=== PATIENT | female | born 1955 | race Caucasian/White ===

== ENCOUNTER 2022-08-12 08:34 | Inpatient (IN) | payer OTHER ==
[2022-08-12] MEDS ORDERED: LACTATED RINGERS SOLUTION 1000 ML INFUS.BAG IV ONE (09:29)
[2022-08-12] MEDS ORDERED: methylPREDNISolone NA SUCC 125 MG/2 ML VIAL IVPB ONE (09:29)
[2022-08-12] MEDS ORDERED: methylPREDNISolone NA SUCC 125 MG/2 ML VIAL ONE (09:33)
[2022-08-12] MEDS: ALBUTEROL SO4 2.5/IPRATROPIUM 0.5 INH SOL 3 ML VIAL.NEB. NEB SCH ×3 (09:38→10:58)
[2022-08-12] MEDS ORDERED: ALPRAZolam 2 MG TABLET PO ONE (10:46)
[2022-08-12 10:48] LABS: VENOUS BASE EXCESS -17.1 mmol/L (-2-2); VENOUS O2 SATURATION 70.5 % (70-80)
[2022-08-12] MEDS ORDERED: QUEtiapine FUMARATE 200 MG TABLET PO ONE (10:48)
[2022-08-12] MEDS ORDERED: ALPRAZolam 1 MG TABLET ONE (10:50)
[2022-08-12 10:51] LABS: VENOUS PH 7.142 (7.310-7.410)
[2022-08-12] MEDS ORDERED: QUEtiapine FUMARATE 100 MG TABLET (FP) ONE (10:51)
[2022-08-12 11:01] LABS: INR 3.96 (0.83-1.09); PROTHROMBIN TIME (PATIENT) 46.2 SEC (9.7-13.0)
[2022-08-12 11:04] LABS: ACTIVATED PTT 33.7 SECONDS (25.2-36.5)
[2022-08-12 11:12] LABS: CHLORIDE 105 mmol/L (98-107); SODIUM 142 mmol/L (136-145)
[2022-08-12 11:15] LABS: ANION GAP 25 MMOL/L (8-16); CALCIUM 9.2 mg/dL (8.5-10.1); CO2 12 mmol/L (21-32); MAGNESIUM 2.2 mg/dL (1.8-2.4)
[2022-08-12 11:16] LABS: ALBUMIN 2.9 g/dl (3.4-5.0)
[2022-08-12 11:18] LABS: CREATININE 2.7 mg/dL (0.55-1.3); SGPT/ALT 967 U/L (13-61)
[2022-08-12 11:19] LABS: PHOSPHOROUS 6.2 mg/dL (2.5-4.9)
[2022-08-12 11:20] LABS: BILIRUBIN,TOTAL 2.6 mg/dL (0.2-1); TOT PROT 6.3 g/dl (6.4-8.2)
[2022-08-12 11:21] LABS: ALK PHOS 109 U/L (45-117)
[2022-08-12 11:23] LABS: N-TERMINAL BNP 1401.9 pg/ml (5-125)
[2022-08-12] MEDS ORDERED: VANCOMYCIN 1 GM in D5W (PRE-DOCKED) 1,000 MG/250 ML IVPB ONE (11:24)
[2022-08-12] MEDS ORDERED: PIPERACILLIN/TAZOB 3.375 GM 3.375 GM in DEXTROSE 5%-WATER - 50 ML IVPB ONE (11:25)
[2022-08-12 11:30] LABS: HEMATOCRIT 36.6 % (32.4-45.2); HEMOGLOBIN 10.8 GM/dL (10.7-15.3); MCH 27.1 pg (25.7-33.7); MCHC 29.4 g/dl (32.0-36.0); MEAN PLT VOLUME 11.4 fl (7.5-11.1); PLATELET COUNT 123 10^3/uL (134-434); RBC 3.98 M/mm3 (3.60-5.2); RDW 20.4 % (11.6-15.6); WHITE BLOOD COUNT 17.2 K/mm3 (4.0-10.0)
[2022-08-12 11:36] LABS: GLUCOSE,RANDOM 43 mg/dL (74-106); SGOT/AST 2800 U/L (15-37)
[2022-08-12 11:43] LABS: LACTIC ACID 14.6 mmol/L (0.4-2.0)
[2022-08-12] MEDS ORDERED: DEXTROSE 50%-WATER - 25 GM/50 ML VIAL IVPUSH ONE (11:45)
[2022-08-12] MEDS ORDERED: DEXTROSE 50%-WATER 25 GM/50 ML DISP.SYRIN ONE ×2 (11:51→11:55)
[2022-08-12] MEDS ORDERED: GLUCAGON 1 MG KIT ONE (11:56)
[2022-08-12] MEDS ORDERED: RAPID SEQUENCE INTUBATION KIT NR ONE (12:05)
[2022-08-12] MEDS ORDERED: PHENYLEPHRINE HCL 10 MG/1 ML SINGLE DOSE VIAL ONE (12:08)
[2022-08-12] MEDS ORDERED: ETOMIDATE 40 MG/20 ML VIAL IVPUSH ONE (12:19)
[2022-08-12] MEDS ORDERED: ROCURONIUM BROMIDE 50 MG/5 ML VIAL IVPUSH ONE (12:19)
[2022-08-12] MEDS ORDERED: PHENYLEPHRINE HCL 10 MG/1 ML SINGLE DOSE VIAL IVPB ONE ×2 (12:21→12:23)
[2022-08-12 12:57] LABS: ANISOCYTOSIS 0; MACROCYTOSIS 0; OVALOCYTE 1+
[2022-08-12] MEDS ORDERED: FENTANYL NS IVPB 500 MCG/100 ML BAG IVPB ONE (13:24)
[2022-08-12] MEDS ORDERED: NOREPINEPHRINE BITARTRATE 4,000 MCG in DEXTROSE 5%-WATER - 496 ML IV SCH (13:45)
[2022-08-12] MEDS ORDERED: HEPARIN NA (PORCINE) 5,000 UNITS/ML 1ML VIAL SQ SCH (14:00)
[2022-08-12] MEDS ORDERED: NOREPINEPHRINE BITARTRATE/D5W 8 MG/250 ML BAG IVPB ONE (14:07)
[2022-08-12] MEDS ORDERED: VANCOMYCIN/WATER FOR INJ (PEG) 1,000 MG/200 ML BAG IVPB ONE (14:18)
[2022-08-12] MEDS ORDERED: PIPERACILLIN/TAZOB 3.375 GM 3.375 GM/50 ML BAG IVPB ONE (14:18)
[2022-08-12] MEDS ORDERED: HEPARIN NA (PORCINE) 5,000 UNITS/ML 1ML VIAL ONE (14:18)
[2022-08-12] MEDS: NOREPINEPHRINE BITARTRATE/D5W 8 MG/250 ML BAG IVPB SCH (14:53)
[2022-08-12] MEDS: FENTANYL NS IVPB 500 MCG/100 ML BAG IVPB SCH (14:53)
[2022-08-12 16:23] LABS: ARTERIAL BLD GAS O2 SATURATION 99.7 % (95-98); ARTERIAL BLOOD GAS BASE EXCESS -18.1 mmol/L (-2-2); ARTERIAL BLOOD GAS PO2 497.7 mmHg (80-100)
[2022-08-12 16:25] LABS: ARTERIAL BLOOD GAS pH 6.975 (7.350-7.450)
[2022-08-12 16:26] LABS: VENT MODE A/C; VENT RATE 12
[2022-08-12] MEDS ORDERED: DEXTROSE 5%-LACTATED RINGERS 1,000 ML IV SCH (16:30)
[2022-08-12 17:37] LABS: BLOOD UREA NITROGEN 29.8 mg/dL (7-18)
[2022-08-12 17:40] LABS: CREATININE 2.5 mg/dL (0.55-1.3)
[2022-08-12 17:55] LABS: CALCIUM 7.8 mg/dL (8.5-10.1); LACTIC ACID 9.9 mmol/L (0.4-2.0)
[2022-08-12] MEDS ORDERED: PIPERACILLIN/TAZOB 2.25 GM 2.25 GM in DEXTROSE 5%-WATER - 50 ML IVPB SCH (18:00)
[2022-08-12] MEDS: MIDAZOLAM IN 0.9 % SOD.CHLORID 100 MG/100 ML PLAST..BAG IVPB SCH ×2 (18:06→22:09)
[2022-08-12] MEDS ORDERED: HYDROCORTISONE 20 MG TABLET PO SCH (18:15)
[2022-08-12] MEDS: SODIUM BICARBONATE 8.4% 50 MEQ/50 ML DISP.SYRIN IVPUSH SCH ×2 (18:30→20:01)
[2022-08-12] MEDS: FLUDROCORTISONE ACETATE 0.1 MG TABLET (FP) NGT SCH (18:30)
[2022-08-12] MEDS: VASOPRESSIN 40 UNITS/100 ML BAG IV SCH (18:38)
[2022-08-12] MEDS ORDERED: SODIUM CHLORIDE 0.9% 500 ML INFUS.BAG IV ONE (20:55)
[2022-08-12] MEDS ORDERED: PHYTONADIONE 10 MG/1 ML AMP IVPB ONE (20:58)
[2022-08-12 21:13] LABS: ARTERIAL BLD GAS O2 SATURATION 97.7 % (95-98); ARTERIAL BLOOD GAS BASE EXCESS -11.3 mmol/L (-2-2)
[2022-08-12 21:25] LABS: VENT MODE A/C; VENT RATE 12
[2022-08-12] MEDS: CHLORHEXIDINE GLUCONATE 4% CLEANSER FOR DECOLONIZATION TP SCH (21:26)
[2022-08-12 21:27] LABS: ARTERIAL BLOOD GAS pH 7.106 (7.350-7.450)
[2022-08-12] MEDS: CEFEPIME 1 GM in DEXTROSE 5%-WATER 100 ML IVPB SCH (21:47)
[2022-08-12] MEDS: PANTOPRAZOLE SODIUM 40 MG VIAL IVPUSH SCH ×2 (21:47→21:50)
[2022-08-12] MEDS: MUPIROCIN 2% TOPICAL OINTMENT FOR DECOLONIZATION NS SCH (21:47)
[2022-08-12] MEDS: HYDROCORTISONE SOD SUCCINATE 100 MG/2 ML VIAL IVPUSH SCH (21:50)
[2022-08-12 22:02] LABS: BASO % 0.1 % (0-2.0); HEMATOCRIT 31.3 % (32.4-45.2); HEMOGLOBIN 9.6 GM/dL (10.7-15.3); LYMPH % 1.8 % (8-40); MCH 28.2 pg (25.7-33.7); MCHC 30.8 g/dl (32.0-36.0); MEAN CELL VOLUME 91.8 fl (80-96); MEAN PLT VOLUME 9.9 fl (7.5-11.1); MONO % 1.3 % (3.8-10.2); NEUT % 96.8 % (42.8-82.8); PLATELET COUNT 95 10^3/uL (134-434); RBC 3.41 M/mm3 (3.60-5.2); RDW 20.1 % (11.6-15.6); WHITE BLOOD COUNT 9.7 K/mm3 (4.0-10.0)
[2022-08-12 22:37] LABS: LACTIC ACID 6.8 mmol/L (0.4-2.0)
[2022-08-12 22:40] LABS: ANISOCYTOSIS 2+; MACROCYTOSIS 1+; OVALOCYTE 1+
[2022-08-12] MEDS ORDERED: DEXTROSE 5%-WATER - 1,000 ML with SODIUM BICARBONATE 8.4% - 150 MEQ IV SCH (23:00)
[2022-08-13] MEDS: FENTANYL NS IVPB 500 MCG/100 ML BAG IVPB SCH ×4 (02:00→23:42)
[2022-08-13] MEDS: HYDROCORTISONE SOD SUCCINATE 100 MG/2 ML VIAL IVPUSH SCH ×3 (04:58→21:48)
[2022-08-13] MEDS: NOREPINEPHRINE BITARTRATE/D5W 8 MG/250 ML BAG IVPB SCH (06:38)
[2022-08-13 07:09] LABS: ARTERIAL BLOOD GAS BASE EXCESS -8.5 mmol/L (-2-2); ARTERIAL BLOOD GAS PO2 106.5 mmHg (80-100); ARTERIAL BLOOD GAS pH 7.235 (7.350-7.450)
[2022-08-13 07:10] LABS: VENT MODE A/C; VENT RATE 18
[2022-08-13 07:48] LABS: HEMATOCRIT 31.3 % (32.4-45.2); HEMOGLOBIN 9.8 GM/dL (10.7-15.3); MCHC 31.4 g/dl (32.0-36.0); MEAN CELL VOLUME 88.9 fl (80-96); MEAN PLT VOLUME 10.3 fl (7.5-11.1); PLATELET COUNT 115 10^3/uL (134-434); RBC 3.52 M/mm3 (3.60-5.2); RDW 19.7 % (11.6-15.6); WHITE BLOOD COUNT 12.5 K/mm3 (4.0-10.0)
[2022-08-13 07:51] LABS: PROTHROMBIN TIME (PATIENT) 50.6 SEC (9.7-13.0)
[2022-08-13 08:03] LABS: CALCIUM 7.3 mg/dL (8.5-10.1)
[2022-08-13 08:04] LABS: BLOOD UREA NITROGEN 30.6 mg/dL (7-18); MAGNESIUM 1.9 mg/dL (1.8-2.4)
[2022-08-13 08:07] LABS: CREATININE 2.7 mg/dL (0.55-1.3); PHOSPHOROUS 6.6 mg/dL (2.5-4.9)
[2022-08-13 08:08] LABS: BILIRUBIN,TOTAL 1.9 mg/dL (0.2-1); TOT PROT 4.9 g/dl (6.4-8.2)
[2022-08-13 08:31] LABS: ALBUMIN 2.1 g/dl (3.4-5.0)
[2022-08-13 08:47] LABS: INR 4.34 (0.83-1.09)
[2022-08-13 09:20] LABS: MACROCYTOSIS 0; PLATELET ESTIMATE DECREASED
[2022-08-13] MEDS: CEFEPIME 1 GM in DEXTROSE 5%-WATER 100 ML IVPB SCH ×2 (09:31→21:50)
[2022-08-13] MEDS: PANTOPRAZOLE SODIUM 40 MG VIAL IVPUSH SCH (09:31)
[2022-08-13 09:36] LABS: LACTIC ACID 4.5 mmol/L (0.4-2.0)
[2022-08-13] MEDS ORDERED: PANTOPRAZOLE SODIUM 40 MG VIAL IVPUSH SCH (10:00)
[2022-08-13] MEDS ORDERED: VANCOMYCIN 1 GM in D5W (PRE-DOCKED) 1,000 MG/250 ML IVPB SCH (10:00)
[2022-08-13] MEDS: FLUDROCORTISONE ACETATE 0.1 MG TABLET (FP) NGT SCH (10:35)
[2022-08-13] MEDS: MUPIROCIN 2% TOPICAL OINTMENT FOR DECOLONIZATION NS SCH ×2 (10:35→21:50)
[2022-08-13] MEDS ORDERED: PHYTONADIONE 10 MG/1 ML AMP IVPB ONE (12:00)
[2022-08-13 12:38] LABS: HELMET CELLS 0; HOWELL-JOLLY BODIES 0; ROULEAU 0; SICKELED CELLS 0; TARGET CELLS 0; TOXIC GRANULATION 0
[2022-08-13 12:39] LABS: ANISOCYTOSIS 0; OVALOCYTE 0; TEAR DROP CELLS 0
[2022-08-13] MEDS: MIDAZOLAM IN 0.9 % SOD.CHLORID 100 MG/100 ML PLAST..BAG IVPB SCH (12:57)
[2022-08-13] MEDS: LACTULOSE 20 GM/30 ML UDC (FOR ORAL USE ONLY) GT SCH ×3 (13:01→21:50)
[2022-08-13] MEDS: DEXTROSE 5%-LACTATED RINGERS 1,000 ML IV SCH (13:16)
[2022-08-13] MEDS ORDERED: WATER IVPB ONE ×2 (17:00→22:00)
[2022-08-13] MEDS ORDERED: DEXTROSE 5% IVPB ONE ×2 (17:00→22:00)
[2022-08-13] MEDS ORDERED: ACETYLCYSTEINE IVPB ONE ×2 (17:00→22:00)
[2022-08-13] MEDS ORDERED: ACETYLCYSTEINE INJECTION 20% 2,900 MG in DEXTROSE 5%-WATER - 500 ML IVPB ONE (18:00)
[2022-08-13] MEDS ORDERED: MIDAZOLAM HCL 5 MG/1 ML Single Dose Vial ONE (18:13)
[2022-08-13] MEDS ORDERED: MIDAZOLAM HCL 5 MG/1 ML Single Dose Vial IVPUSH ONE ×2 (18:17→18:46)
[2022-08-13] MEDS: CHLORHEXIDINE GLUCONATE 4% CLEANSER FOR DECOLONIZATION TP SCH (21:50)
[2022-08-14] MEDS: HYDROCORTISONE SOD SUCCINATE 100 MG/2 ML VIAL IVPUSH SCH ×3 (05:53→21:45)
[2022-08-14] MEDS: FENTANYL NS IVPB 500 MCG/100 ML BAG IVPB SCH ×2 (07:14→22:19)
[2022-08-14 07:32] LABS: HEMATOCRIT 28.6 % (32.4-45.2); HEMOGLOBIN 9.5 GM/dL (10.7-15.3); MCH 28.3 pg (25.7-33.7); MCHC 33.1 g/dl (32.0-36.0); MEAN CELL VOLUME 85.6 fl (80-96); MEAN PLT VOLUME 8.6 fl (7.5-11.1); PLATELET COUNT 113 10^3/uL (134-434); RBC 3.34 M/mm3 (3.60-5.2); RDW 19.3 % (11.6-15.6)
[2022-08-14] MEDS: NOREPINEPHRINE BITARTRATE/D5W 8 MG/250 ML BAG IVPB SCH (07:34)
[2022-08-14] MEDS: VASOPRESSIN 40 UNITS/100 ML BAG IV SCH (07:34)
[2022-08-14 07:37] LABS: ACTIVATED PTT 36.1 SECONDS (25.2-36.5); INR 3.38 (0.83-1.09); PROTHROMBIN TIME (PATIENT) 39.3 SEC (9.7-13.0)
[2022-08-14 07:54] LABS: BLOOD UREA NITROGEN 41.5 mg/dL (7-18)
[2022-08-14 07:56] LABS: CREATININE 3.6 mg/dL (0.55-1.3)
[2022-08-14 07:59] LABS: BILIRUBIN,TOTAL 2.2 mg/dL (0.2-1); TOT PROT 4.7 g/dl (6.4-8.2)
[2022-08-14 09:10] LABS: CREATININE, URINE RANDOM < 13.0 mg/dL (30-150)
[2022-08-14] MEDS: LACTULOSE 20 GM/30 ML UDC (FOR ORAL USE ONLY) GT SCH ×4 (09:42→21:44)
[2022-08-14] MEDS: CEFEPIME 1 GM in DEXTROSE 5%-WATER 100 ML IVPB SCH ×2 (09:42→21:43)
[2022-08-14] MEDS: FLUDROCORTISONE ACETATE 0.1 MG TABLET (FP) NGT SCH (09:42)
[2022-08-14] MEDS: MUPIROCIN 2% TOPICAL OINTMENT FOR DECOLONIZATION NS SCH ×2 (09:42→21:44)
[2022-08-14] MEDS: PANTOPRAZOLE SODIUM 40 MG VIAL IVPUSH SCH ×2 (09:43→21:43)
[2022-08-14 09:45] LABS: EPI CELLS 0 /uL (0-25.1); HYALINE CASTS 0 /uL (0-3.1); URINE APPEARANCE CLOUDY; URINE BACTERIA 44 /uL (0-1359); URINE BILIRUBIN NEGATIVE (NEGATIVE); URINE COLOR YELLOW; URINE GLUCOSE (UA) 1+ (NEGATIVE); URINE KETONE NEGATIVE (NEGATIVE); URINE LEUK ESTERASE TRACE (NEGATIVE); URINE NITRITE NEGATIVE (NEGATIVE); URINE PROTEIN 4+ (NEGATIVE); URINE UROBILINOGEN 0.2 mg/dL (0.2-1.0); URINE WBC 1112 /uL (0-25.8)
[2022-08-14 09:46] LABS: METHADONE, UR NEGATIVE (NEGATIVE); PHENCYCLIDINE,URINE NEGATIVE (NEGATIVE)
[2022-08-14 09:48] LABS: OPIATES, URI NEGATIVE (NEGATIVE)
[2022-08-14 09:51] LABS: COCAINE, UR NEGATIVE (NEGATIVE); URINE AMPHETAMINES NEGATIVE (NEGATIVE); URINE BARBITURATES NEGATIVE (NEGATIVE); URINE BENZODIAZEPINES POSITIVE (NEGATIVE)
[2022-08-14 09:55] LABS: URINE RBC 717 /uL (0-23.9)
[2022-08-14 09:56] LABS: YEAST NEGATIVE (NEGATIVE)
[2022-08-14] MEDS ORDERED: PANTOPRAZOLE SODIUM 40 MG VIAL IVPUSH SCH (10:00)
[2022-08-14] MEDS ORDERED: RIFAXIMIN 550 MG TABLET PO SCH (10:00)
[2022-08-14] MEDS: MIDAZOLAM IN 0.9 % SOD.CHLORID 100 MG/100 ML PLAST..BAG IVPB SCH (17:12)
[2022-08-14] MEDS: CHLORHEXIDINE GLUCONATE 4% CLEANSER FOR DECOLONIZATION TP SCH (21:44)
[2022-08-14] MEDS: RIFAXIMIN 550 MG TABLET GT SCH (21:47)
[2022-08-15] MEDS: DEXTROSE 5%-LACTATED RINGERS 1,000 ML IV SCH ×3 (02:00→21:36)
[2022-08-15] MEDS: HYDROCORTISONE SOD SUCCINATE 100 MG/2 ML VIAL IVPUSH SCH ×3 (05:24→20:48)
[2022-08-15] MEDS: FENTANYL NS IVPB 500 MCG/100 ML BAG IVPB SCH ×3 (05:30→21:20)
[2022-08-15] MEDS: MIDAZOLAM IN 0.9 % SOD.CHLORID 100 MG/100 ML PLAST..BAG IVPB SCH ×2 (05:45→21:37)
[2022-08-15 07:46] LABS: HEMATOCRIT 27.4 % (32.4-45.2); HEMOGLOBIN 9.2 GM/dL (10.7-15.3); MCH 28.3 pg (25.7-33.7); MCHC 33.4 g/dl (32.0-36.0); MEAN CELL VOLUME 84.6 fl (80-96); MEAN PLT VOLUME 9.3 fl (7.5-11.1); PLATELET COUNT 90 10^3/uL (134-434); RBC 3.24 M/mm3 (3.60-5.2); RDW 19.8 % (11.6-15.6); WHITE BLOOD COUNT 4.9 K/mm3 (4.0-10.0)
[2022-08-15 08:00] LABS: INR 2.44 (0.83-1.09); PROTHROMBIN TIME (PATIENT) 28.3 SEC (9.7-13.0)
[2022-08-15 08:17] LABS: ALBUMIN 2.2 g/dl (3.4-5.0); BLOOD UREA NITROGEN 57.6 mg/dL (7-18); CALCIUM 7.5 mg/dL (8.5-10.1)
[2022-08-15 08:19] LABS: BILIRUBIN,DIRECT 2.1 mg/dL (0.0-0.2); CREATININE 4.3 mg/dL (0.55-1.3)
[2022-08-15 08:21] LABS: BILIRUBIN,TOTAL 2.6 mg/dL (0.2-1)
[2022-08-15 09:15] LABS: ANISOCYTOSIS 3+; MACROCYTOSIS 0; OVALOCYTE 2+; PLATELET ESTIMATE DECREASED
[2022-08-15] MEDS: LACTULOSE 20 GM/30 ML UDC (FOR ORAL USE ONLY) GT SCH ×4 (09:37→21:21)
[2022-08-15] MEDS: CEFEPIME 1 GM in DEXTROSE 5%-WATER 100 ML IVPB SCH ×2 (09:37→21:21)
[2022-08-15] MEDS: PANTOPRAZOLE SODIUM 40 MG VIAL IVPUSH SCH ×2 (09:37→21:21)
[2022-08-15] MEDS: MUPIROCIN 2% TOPICAL OINTMENT FOR DECOLONIZATION NS SCH ×2 (09:40→21:21)
[2022-08-15] MEDS: FLUDROCORTISONE ACETATE 0.1 MG TABLET (FP) NGT SCH (09:40)
[2022-08-15] MEDS: RIFAXIMIN 550 MG TABLET GT SCH ×2 (09:41→21:21)
[2022-08-15] MEDS ORDERED: TAMSULOSIN HCL 0.4 MG CAP PO ONE (13:07)
[2022-08-15] MEDS: CHLORHEXIDINE GLUCONATE 4% CLEANSER FOR DECOLONIZATION TP SCH (21:21)
[2022-08-16] MEDS: HYDROCORTISONE SOD SUCCINATE 100 MG/2 ML VIAL IVPUSH SCH ×3 (02:53→21:02)
[2022-08-16] MEDS: FENTANYL NS IVPB 500 MCG/100 ML BAG IVPB SCH ×4 (02:53→21:03)
[2022-08-16 07:51] LABS: INR 2.05 (0.83-1.09); PROTHROMBIN TIME (PATIENT) 23.7 SEC (9.7-13.0)
[2022-08-16 07:53] LABS: ACTIVATED PTT 38.1 SECONDS (25.2-36.5)
[2022-08-16 07:59] LABS: HEMATOCRIT 26.8 % (32.4-45.2); HEMOGLOBIN 8.8 GM/dL (10.7-15.3); MCH 27.6 pg (25.7-33.7); MCHC 32.7 g/dl (32.0-36.0); MEAN CELL VOLUME 84.4 fl (80-96); PLATELET COUNT 79 10^3/uL (134-434); RBC 3.17 M/mm3 (3.60-5.2); RDW 19.5 % (11.6-15.6); WHITE BLOOD COUNT 2.7 K/mm3 (4.0-10.0)
[2022-08-16 08:28] LABS: ALBUMIN 1.8 g/dl (3.4-5.0); BLOOD UREA NITROGEN 64.5 mg/dL (7-18); CALCIUM 7.2 mg/dL (8.5-10.1); MAGNESIUM 2.1 mg/dL (1.8-2.4)
[2022-08-16 08:31] LABS: BILIRUBIN,DIRECT 2.1 mg/dL (0.0-0.2); CREATININE 4.4 mg/dL (0.55-1.3)
[2022-08-16 08:33] LABS: BILIRUBIN,TOTAL 2.8 mg/dL (0.2-1); TOT PROT 4.6 g/dl (6.4-8.2)
[2022-08-16 09:12] LABS: ANISOCYTOSIS 2+; MACROCYTOSIS 1+; OVALOCYTE 1+
[2022-08-16] MEDS: FLUDROCORTISONE ACETATE 0.1 MG TABLET (FP) NGT SCH (09:46)
[2022-08-16] MEDS: RIFAXIMIN 550 MG TABLET GT SCH ×2 (09:46→22:04)
[2022-08-16] MEDS: CEFEPIME 1 GM in DEXTROSE 5%-WATER 100 ML IVPB SCH (09:46)
[2022-08-16] MEDS: LACTULOSE 20 GM/30 ML UDC (FOR ORAL USE ONLY) GT SCH ×4 (09:46→22:03)
[2022-08-16] MEDS: PANTOPRAZOLE SODIUM 40 MG VIAL IVPUSH SCH ×2 (09:46→22:04)
[2022-08-16] MEDS: MUPIROCIN 2% TOPICAL OINTMENT FOR DECOLONIZATION NS SCH ×2 (09:48→22:04)
[2022-08-16] MEDS: DEXTROSE 5%-LACTATED RINGERS 1,000 ML IV SCH ×2 (14:41→21:13)
[2022-08-16] MEDS: MIDAZOLAM IN 0.9 % SOD.CHLORID 100 MG/100 ML PLAST..BAG IVPB SCH (14:42)
[2022-08-16] MEDS: CHLORHEXIDINE GLUCONATE 4% CLEANSER FOR DECOLONIZATION TP SCH (22:04)
[2022-08-17] MEDS: FENTANYL NS IVPB 500 MCG/100 ML BAG IVPB SCH ×4 (02:19→19:13)
[2022-08-17] MEDS: HYDROCORTISONE SOD SUCCINATE 100 MG/2 ML VIAL IVPUSH SCH ×3 (04:42→20:43)
[2022-08-17] MEDS: DEXTROSE 5%-LACTATED RINGERS 1,000 ML IV SCH ×2 (06:20→21:32)
[2022-08-17 07:16] LABS: HEMATOCRIT 27.7 % (32.4-45.2); MCH 27.7 pg (25.7-33.7); MCHC 32.6 g/dl (32.0-36.0); MEAN CELL VOLUME 84.8 fl (80-96); MEAN PLT VOLUME 8.5 fl (7.5-11.1); PLATELET COUNT 64 10^3/uL (134-434); RBC 3.27 M/mm3 (3.60-5.2); RDW 19.7 % (11.6-15.6); WHITE BLOOD COUNT 4.4 K/mm3 (4.0-10.0)
[2022-08-17 07:41] LABS: CALCIUM 7.1 mg/dL (8.5-10.1)
[2022-08-17 07:42] LABS: BLOOD UREA NITROGEN 70.6 mg/dL (7-18); MAGNESIUM 2.1 mg/dL (1.8-2.4)
[2022-08-17 07:45] LABS: CREATININE 4.6 mg/dL (0.55-1.3); PHOSPHOROUS 5.9 mg/dL (2.5-4.9)
[2022-08-17] MEDS: MIDAZOLAM IN 0.9 % SOD.CHLORID 100 MG/100 ML PLAST..BAG IVPB SCH ×3 (10:04→16:01)
[2022-08-17] MEDS: MUPIROCIN 2% TOPICAL OINTMENT FOR DECOLONIZATION NS SCH (10:07)
[2022-08-17] MEDS: RIFAXIMIN 550 MG TABLET GT SCH ×2 (10:08→21:32)
[2022-08-17] MEDS: CEFEPIME 1 GM in DEXTROSE 5%-WATER 100 ML IVPB SCH (10:08)
[2022-08-17] MEDS: FLUDROCORTISONE ACETATE 0.1 MG TABLET (FP) NGT SCH (10:09)
[2022-08-17] MEDS: PANTOPRAZOLE SODIUM 40 MG VIAL IVPUSH SCH ×2 (10:09→21:32)
[2022-08-17] MEDS: LACTULOSE 20 GM/30 ML UDC (FOR ORAL USE ONLY) GT SCH ×4 (10:10→21:32)
[2022-08-17] MEDS ORDERED: fentaNYL CITRATE 250 MCG/5 ML VIAL ONE (12:32)
[2022-08-17] MEDS: FUROSEMIDE INJECTION 100 MG in SODIUM CHLORIDE 90 ML IVPB SCH (15:30)
[2022-08-17] MEDS: CHLORHEXIDINE GLUCONATE 4% CLEANSER FOR DECOLONIZATION TP SCH (21:32)
[2022-08-18] MEDS: HYDROCORTISONE SOD SUCCINATE 100 MG/2 ML VIAL IVPUSH SCH ×3 (03:59→21:34)
[2022-08-18 07:29] LABS: HEMATOCRIT 26.9 % (32.4-45.2); HEMOGLOBIN 8.7 GM/dL (10.7-15.3); MCHC 32.5 g/dl (32.0-36.0); MEAN CELL VOLUME 85.9 fl (80-96); MEAN PLT VOLUME 9.3 fl (7.5-11.1); PLATELET COUNT 48 10^3/uL (134-434); RBC 3.13 M/mm3 (3.60-5.2); RDW 20.4 % (11.6-15.6); WHITE BLOOD COUNT 4.9 K/mm3 (4.0-10.0)
[2022-08-18 08:04] LABS: CALCIUM 7.6 mg/dL (8.5-10.1)
[2022-08-18 08:05] LABS: BLOOD UREA NITROGEN 82.2 mg/dL (7-18); MAGNESIUM 2.2 mg/dL (1.8-2.4)
[2022-08-18 08:08] LABS: CREATININE 5.1 mg/dL (0.55-1.3); PHOSPHOROUS 7.2 mg/dL (2.5-4.9)
[2022-08-18] MEDS: CEFEPIME 1 GM in DEXTROSE 5%-WATER 100 ML IVPB SCH (09:59)
[2022-08-18] MEDS: RIFAXIMIN 550 MG TABLET GT SCH ×2 (10:00→21:38)
[2022-08-18] MEDS: LACTULOSE 20 GM/30 ML UDC (FOR ORAL USE ONLY) GT SCH ×4 (10:00→21:34)
[2022-08-18] MEDS: PANTOPRAZOLE SODIUM 40 MG VIAL IVPUSH SCH ×2 (10:00→21:36)
[2022-08-18] MEDS: FLUDROCORTISONE ACETATE 0.1 MG TABLET (FP) NGT SCH (10:00)
[2022-08-18] MEDS ORDERED: BISACODYL 10 MG SUPP.RECT PR ONE ×3 (10:47→18:45)
[2022-08-18] MEDS: FUROSEMIDE INJECTION 100 MG in SODIUM CHLORIDE 90 ML IVPB SCH (14:55)
[2022-08-18] MEDS ORDERED: MINERAL OIL ENEMA 133 ML ENEMA RC ONE (15:00)
[2022-08-18] MEDS: DEXMEDETOMIDINE PREMIX 400 MCG/100 ML BAG IVPB SCH (16:24)
[2022-08-18] MEDS: PROPOFOL 1,000,000 MCG/100 ML VIAL IVPB SCH (16:25)
[2022-08-18] MEDS ORDERED: SODIUM CHLORIDE 0.9% 500 ML INFUS.BAG IV ONE (18:21)
[2022-08-18] MEDS: MIDAZOLAM IN 0.9 % SOD.CHLORID 100 MG/100 ML PLAST..BAG IVPB SCH (19:00)
[2022-08-18] MEDS: CHLORHEXIDINE GLUCONATE 4% CLEANSER FOR DECOLONIZATION TP SCH (21:38)
[2022-08-18] MEDS: SENNOSIDES/DOCUSATE COMBO (SENNA PLUS) TABLET (UD) PO SCH (21:38)
[2022-08-19] MEDS: HYDROCORTISONE SOD SUCCINATE 100 MG/2 ML VIAL IVPUSH SCH (05:55)
[2022-08-19 07:33] LABS: CALCIUM 7.4 mg/dL (8.5-10.1)
[2022-08-19 07:34] LABS: BLOOD UREA NITROGEN 94.6 mg/dL (7-18); MAGNESIUM 2.2 mg/dL (1.8-2.4)
[2022-08-19 07:37] LABS: CREATININE 5.3 mg/dL (0.55-1.3); HEMATOCRIT 29.1 % (32.4-45.2); HEMOGLOBIN 9.7 GM/dL (10.7-15.3); MCH 28.2 pg (25.7-33.7); MCHC 33.4 g/dl (32.0-36.0); MEAN CELL VOLUME 84.6 fl (80-96); MEAN PLT VOLUME 9.1 fl (7.5-11.1); PHOSPHOROUS 7.1 mg/dL (2.5-4.9); PLATELET COUNT 46 10^3/uL (134-434); RBC 3.44 M/mm3 (3.60-5.2); RDW 19.6 % (11.6-15.6); WHITE BLOOD COUNT 8.3 K/mm3 (4.0-10.0)
[2022-08-19 07:38] LABS: BILIRUBIN,TOTAL 3.7 mg/dL (0.2-1)
[2022-08-19 07:39] LABS: TOT PROT 5.5 g/dl (6.4-8.2)
[2022-08-19 07:42] LABS: ALBUMIN 2.2 g/dl (3.4-5.0)
[2022-08-19] MEDS: LACTULOSE 20 GM/30 ML UDC (FOR ORAL USE ONLY) GT SCH ×4 (10:09→21:06)
[2022-08-19] MEDS: PANTOPRAZOLE SODIUM 40 MG VIAL IVPUSH SCH ×2 (10:09→21:08)
[2022-08-19] MEDS: CEFEPIME 1 GM in DEXTROSE 5%-WATER 100 ML IVPB SCH (10:09)
[2022-08-19] MEDS: RIFAXIMIN 550 MG TABLET GT SCH ×2 (10:09→21:08)
[2022-08-19] MEDS ORDERED: HYDROCORTISONE 5 MG TABLET PO SCH (13:00)
[2022-08-19 13:20] LABS: ARTERIAL BLD GAS O2 SATURATION 98.9 % (95-98); ARTERIAL BLOOD GAS BASE EXCESS -5.3 mmol/L (-2-2); ARTERIAL BLOOD GAS PO2 148.4 mmHg (80-100); ARTERIAL BLOOD GAS pH 7.361 (7.350-7.450)
[2022-08-19 13:22] LABS: ALLENS TEST POSITIVE
[2022-08-19 13:23] LABS: VENT MODE PSU
[2022-08-19] MEDS: HYDROCORTISONE 20 MG, HYDROCORTISONE 5 MG PO SCH ×2 (15:40→21:17)
[2022-08-19 15:54] VITALS: BMI 28.5
[2022-08-19] MEDS: HEPARIN NA (PORCINE) 5,000 UNITS/ML 1ML VIAL SQ SCH (21:06)
[2022-08-19] MEDS: PROPOFOL 1,000,000 MCG/100 ML VIAL IVPB SCH ×2 (21:07→23:25)
[2022-08-19] MEDS: DEXMEDETOMIDINE PREMIX 400 MCG/100 ML BAG IVPB SCH (21:07)
[2022-08-19] MEDS: CHLORHEXIDINE GLUCONATE 4% CLEANSER FOR DECOLONIZATION TP SCH (21:07)
[2022-08-19] MEDS: SENNOSIDES/DOCUSATE COMBO (SENNA PLUS) TABLET (UD) PO SCH (21:08)
[2022-08-20 07:19] LABS: HEMATOCRIT 35.1 % (32.4-45.2); HEMOGLOBIN 11.6 GM/dL (10.7-15.3); MCH 28.8 pg (25.7-33.7); MCHC 33.1 g/dl (32.0-36.0); MEAN CELL VOLUME 87.1 fl (80-96); MEAN PLT VOLUME 8.4 fl (7.5-11.1); RBC 4.03 M/mm3 (3.60-5.2); RDW 19.9 % (11.6-15.6); WHITE BLOOD COUNT 8.1 K/mm3 (4.0-10.0)
[2022-08-20 07:22] LABS: PLATELET COUNT 36 10^3/uL (134-434)
[2022-08-20 08:26] LABS: CHLORIDE 107 mmol/L (98-107); SODIUM 140 mmol/L (136-145)
[2022-08-20 08:28] LABS: CALCIUM 7.4 mg/dL (8.5-10.1)
[2022-08-20 08:29] LABS: ALBUMIN 2.2 g/dl (3.4-5.0); ANION GAP 15 MMOL/L (8-16); CO2 19 mmol/L (21-32); GLUCOSE,RANDOM 123 mg/dL (74-106); MAGNESIUM 2.4 mg/dL (1.8-2.4)
[2022-08-20 08:32] LABS: CREATININE 5.4 mg/dL (0.55-1.3); PHOSPHOROUS 7.4 mg/dL (2.5-4.9); SGOT/AST 34 U/L (15-37); SGPT/ALT 257 U/L (13-61)
[2022-08-20 08:33] LABS: TOT PROT 5.3 g/dl (6.4-8.2)
[2022-08-20 08:34] LABS: ALK PHOS 238 U/L (45-117); BILIRUBIN,TOTAL 3.4 mg/dL (0.2-1); BLOOD UREA NITROGEN 106.7 mg/dL (7-18)
[2022-08-20] MEDS: PANTOPRAZOLE SODIUM 40 MG VIAL IVPUSH SCH ×2 (09:42→22:26)
[2022-08-20] MEDS: CEFEPIME 1 GM in DEXTROSE 5%-WATER 100 ML IVPB SCH (09:42)
[2022-08-20] MEDS: HEPARIN NA (PORCINE) 5,000 UNITS/ML 1ML VIAL SQ SCH (09:42)
[2022-08-20] MEDS: RIFAXIMIN 550 MG TABLET GT SCH ×2 (09:42→22:26)
[2022-08-20] MEDS: HYDROCORTISONE 20 MG, HYDROCORTISONE 5 MG PO SCH ×2 (09:43→22:29)
[2022-08-20] MEDS: LACTULOSE 20 GM/30 ML UDC (FOR ORAL USE ONLY) GT SCH ×3 (09:45→22:26)
[2022-08-20 12:22] LABS: INR 1.34 (0.83-1.09); PROTHROMBIN TIME (PATIENT) 15.5 SEC (9.7-13.0)
[2022-08-20] MEDS ORDERED: BISACODYL 5 MG TABLET.DR (FP) PO PRN (14:44)
[2022-08-20] MEDS: PROPOFOL 1,000,000 MCG/100 ML VIAL IVPB SCH (16:54)
[2022-08-20 21:20] LABS: INR 1.28 (0.83-1.09); PROTHROMBIN TIME (PATIENT) 14.7 SEC (9.7-13.0)
[2022-08-20] MEDS: SENNOSIDES/DOCUSATE COMBO (SENNA PLUS) TABLET (UD) PO SCH (22:26)
[2022-08-20] MEDS: CHLORHEXIDINE GLUCONATE 4% CLEANSER FOR DECOLONIZATION TP SCH (22:27)
[2022-08-21] MEDS: PROPOFOL 1,000,000 MCG/100 ML VIAL IVPB SCH ×3 (05:18→17:31)
[2022-08-21 05:31] LABS: MCH 28.2 pg (25.7-33.7); WHITE BLOOD COUNT 6.9 K/mm3 (4.0-10.0)
[2022-08-21 05:37] LABS: HEMATOCRIT 20.4 % (32.4-45.2); MCHC 32.2 g/dl (32.0-36.0); MEAN CELL VOLUME 87.5 fl (80-96); MEAN PLT VOLUME 10.3 fl (7.5-11.1); RBC 2.33 M/mm3 (3.60-5.2); RDW 21.1 % (11.6-15.6)
[2022-08-21 05:51] LABS: HEMOGLOBIN 6.5 GM/dL (10.7-15.3)
[2022-08-21 07:03] LABS: PLATELET COUNT 49.5 10^3/uL (134-434)
[2022-08-21 07:58] LABS: CHLORIDE 106 mmol/L (98-107); SODIUM 141 mmol/L (136-145)
[2022-08-21 08:00] LABS: CALCIUM 7.9 mg/dL (8.5-10.1)
[2022-08-21 08:01] LABS: ALBUMIN 2.2 g/dl (3.4-5.0); ANION GAP 13 MMOL/L (8-16); CO2 22 mmol/L (21-32); GLUCOSE,RANDOM 129 mg/dL (74-106)
[2022-08-21 08:03] LABS: CREATININE 5.3 mg/dL (0.55-1.3); SGOT/AST 41 U/L (15-37); SGPT/ALT 180 U/L (13-61)
[2022-08-21 08:05] LABS: TOT PROT 5.4 g/dl (6.4-8.2)
[2022-08-21 08:15] LABS: ALK PHOS 307 U/L (45-117)
[2022-08-21] MEDS: FENTANYL NS IVPB 500 MCG/100 ML BAG IVPB SCH ×2 (08:38→18:45)
[2022-08-21] MEDS: RIFAXIMIN 550 MG TABLET GT SCH ×2 (09:54→22:07)
[2022-08-21] MEDS: LACTULOSE 20 GM/30 ML UDC (FOR ORAL USE ONLY) GT SCH ×4 (09:54→22:06)
[2022-08-21] MEDS: PANTOPRAZOLE SODIUM 40 MG VIAL IVPUSH SCH ×2 (09:54→22:06)
[2022-08-21 12:12] LABS: EPI CELLS 10 /uL (0-25.1); HYALINE CASTS 1 /uL (0-3.1); PH,URINE 5.5 (5.0-8.0); URINE APPEARANCE CLEAR; URINE BACTERIA 136 /uL (0-1359); URINE BILIRUBIN NEGATIVE (NEGATIVE); URINE COLOR YELLOW; URINE GLUCOSE (UA) NEGATIVE (NEGATIVE); URINE KETONE NEGATIVE (NEGATIVE); URINE LEUK ESTERASE TRACE (NEGATIVE); URINE NITRITE NEGATIVE (NEGATIVE); URINE PROTEIN 1+ (NEGATIVE); URINE WBC 25 /uL (0-25.8)
[2022-08-21] MEDS: methylPREDNISolone NA SUCC 40 MG/1 ML VIAL IVPUSH SCH ×2 (13:00→17:21)
[2022-08-21 13:15] LABS: BASO % 0.2 % (0-2.0); EOS % 0.6 % (0-4.5); HEMATOCRIT 22.5 % (32.4-45.2); HEMOGLOBIN 7.4 GM/dL (10.7-15.3); LYMPH % 2.1 % (8-40); MCH 28.4 pg (25.7-33.7); MEAN CELL VOLUME 86.1 fl (80-96); MEAN PLT VOLUME 9.9 fl (7.5-11.1); MONO % 6.3 % (3.8-10.2); NEUT % 90.8 % (42.8-82.8); RBC 2.62 M/mm3 (3.60-5.2); RDW 19.8 % (11.6-15.6); WHITE BLOOD COUNT 6.8 K/mm3 (4.0-10.0)
[2022-08-21 13:26] LABS: URINE RBC 78 /uL (0-23.9)
[2022-08-21 13:27] LABS: ACTIVATED PTT 29.4 SECONDS (25.2-36.5); INR 1.29 (0.83-1.09); PROTHROMBIN TIME (PATIENT) 14.9 SEC (9.7-13.0)
[2022-08-21 13:30] LABS: YEAST NEGATIVE (NEGATIVE)
[2022-08-21 13:56] LABS: CHLORIDE 107 mmol/L (98-107); SODIUM 143 mmol/L (136-145)
[2022-08-21 13:57] LABS: CALCIUM 7.7 mg/dL (8.5-10.1)
[2022-08-21 13:59] LABS: ANION GAP 13 MMOL/L (8-16); CO2 23 mmol/L (21-32); GLUCOSE,RANDOM 130 mg/dL (74-106); MAGNESIUM 2.4 mg/dL (1.8-2.4)
[2022-08-21 14:02] LABS: CREATININE 5.3 mg/dL (0.55-1.3); PHOSPHOROUS 6.6 mg/dL (2.5-4.9); SGOT/AST 33 U/L (15-37); SGPT/ALT 156 U/L (13-61)
[2022-08-21 14:03] LABS: BILIRUBIN,TOTAL 2.6 mg/dL (0.2-1); TOT PROT 4.8 g/dl (6.4-8.2)
[2022-08-21 14:08] LABS: ALK PHOS 272 U/L (45-117); BLOOD UREA NITROGEN 121.3 mg/dL (7-18)
[2022-08-21 14:11] LABS: PLATELET ESTIMATE DECREASED
[2022-08-21 14:12] LABS: PLATELET COUNT 31 10^3/uL (134-434)
[2022-08-21] MEDS: SENNOSIDES/DOCUSATE COMBO (SENNA PLUS) TABLET (UD) PO SCH (22:06)
[2022-08-21] MEDS: CHLORHEXIDINE GLUCONATE 4% CLEANSER FOR DECOLONIZATION TP SCH (22:06)
[2022-08-22] MEDS: methylPREDNISolone NA SUCC 40 MG/1 ML VIAL IVPUSH SCH (02:23)
[2022-08-22 06:01] LABS: HEMATOCRIT 22.4 % (32.4-45.2); HEMOGLOBIN 7.3 GM/dL (10.7-15.3); MCH 28.1 pg (25.7-33.7); MCHC 32.7 g/dl (32.0-36.0); MEAN CELL VOLUME 85.9 fl (80-96); MEAN PLT VOLUME 12.9 fl (7.5-11.1); RBC 2.61 M/mm3 (3.60-5.2); RDW 20.6 % (11.6-15.6); WHITE BLOOD COUNT 4.7 K/mm3 (4.0-10.0)
[2022-08-22 07:37] LABS: PLATELET COUNT 32 10^3/uL (134-434)
[2022-08-22 08:42] LABS: INR 1.28 (0.83-1.09); PROTHROMBIN TIME (PATIENT) 14.7 SEC (9.7-13.0)
[2022-08-22 08:45] LABS: ACTIVATED PTT 29.4 SECONDS (25.2-36.5)
[2022-08-22 08:57] LABS: HEMATOCRIT 24.2 % (32.4-45.2); HEMOGLOBIN 7.9 GM/dL (10.7-15.3); MCH 28.5 pg (25.7-33.7); MCHC 32.8 g/dl (32.0-36.0); MEAN CELL VOLUME 86.7 fl (80-96); MEAN PLT VOLUME 9.3 fl (7.5-11.1); PLATELET COUNT 23 10^3/uL (134-434); RBC 2.79 M/mm3 (3.60-5.2); RDW 20.5 % (11.6-15.6); WHITE BLOOD COUNT 4.1 K/mm3 (4.0-10.0)
[2022-08-22 08:59] LABS: CHLORIDE 106 mmol/L (98-107); SODIUM 142 mmol/L (136-145)
[2022-08-22 09:16] LABS: ALBUMIN 2.4 g/dl (3.4-5.0); ANION GAP 14 MMOL/L (8-16); CALCIUM 8.1 mg/dL (8.5-10.1); CO2 22 mmol/L (21-32); GLUCOSE,RANDOM 162 mg/dL (74-106)
[2022-08-22 09:19] LABS: CREATININE 4.9 mg/dL (0.55-1.3); PHOSPHOROUS 7.4 mg/dL (2.5-4.9); SGOT/AST 31 U/L (15-37); SGPT/ALT 143 U/L (13-61)
[2022-08-22 09:21] LABS: BILIRUBIN,TOTAL 3.1 mg/dL (0.2-1); TOT PROT 5.6 g/dl (6.4-8.2)
[2022-08-22] MEDS: PANTOPRAZOLE SODIUM 40 MG VIAL IVPUSH SCH ×2 (09:22→22:15)
[2022-08-22] MEDS: RIFAXIMIN 550 MG TABLET GT SCH ×2 (09:22→22:14)
[2022-08-22] MEDS: LACTULOSE 20 GM/30 ML UDC (FOR ORAL USE ONLY) GT SCH ×4 (09:22→22:15)
[2022-08-22 09:23] LABS: ALK PHOS 245 U/L (45-117); BLOOD UREA NITROGEN 122.8 mg/dL (7-18)
[2022-08-22 09:28] LABS: ANISOCYTOSIS 3+; MACROCYTOSIS 0; OVALOCYTE 1+; PLATELET ESTIMATE DECREASED
[2022-08-22] MEDS: PROPOFOL 1,000,000 MCG/100 ML VIAL IVPB SCH (16:58)
[2022-08-22 19:08] LABS: HEMATOCRIT 25.5 % (32.4-45.2); HEMOGLOBIN 8.3 GM/dL (10.7-15.3); MCH 28.4 pg (25.7-33.7); MCHC 32.6 g/dl (32.0-36.0); MEAN CELL VOLUME 87.1 fl (80-96); MEAN PLT VOLUME 10.7 fl (7.5-11.1); PLATELET COUNT 44 10^3/uL (134-434); RBC 2.93 M/mm3 (3.60-5.2); RDW 20.6 % (11.6-15.6); WHITE BLOOD COUNT 10.4 K/mm3 (4.0-10.0)
[2022-08-22 19:15] LABS: INR 1.27 (0.83-1.09); PROTHROMBIN TIME (PATIENT) 14.6 SEC (9.7-13.0)
[2022-08-22 19:18] LABS: ACTIVATED PTT 28.6 SECONDS (25.2-36.5)
[2022-08-22 19:31] LABS: CHLORIDE 108 mmol/L (98-107); SODIUM 144 mmol/L (136-145)
[2022-08-22 19:33] LABS: ALBUMIN 2.6 g/dl (3.4-5.0); ANION GAP 14 MMOL/L (8-16); CALCIUM 8.6 mg/dL (8.5-10.1); CO2 22 mmol/L (21-32); GLUCOSE,RANDOM 156 mg/dL (74-106)
[2022-08-22 19:36] LABS: SGOT/AST 31 U/L (15-37); SGPT/ALT 136 U/L (13-61)
[2022-08-22 19:38] LABS: BILIRUBIN,TOTAL 3.2 mg/dL (0.2-1)
[2022-08-22 19:39] LABS: ALK PHOS 229 U/L (45-117)
[2022-08-22 19:55] LABS: ANISOCYTOSIS 1+; MACROCYTOSIS 0; PLATELET ESTIMATE DECREASED
[2022-08-22 20:24] LABS: BLOOD UREA NITROGEN 124.5 mg/dL (7-18)
[2022-08-22] MEDS: CHLORHEXIDINE GLUCONATE 4% CLEANSER FOR DECOLONIZATION TP SCH (22:15)
[2022-08-23] MEDS: RIFAXIMIN 550 MG TABLET GT SCH ×2 (09:34→22:32)
[2022-08-23] MEDS: PANTOPRAZOLE SODIUM 40 MG VIAL IVPUSH SCH ×2 (09:34→22:32)
[2022-08-23] MEDS: LACTULOSE 20 GM/30 ML UDC (FOR ORAL USE ONLY) GT SCH ×4 (09:34→22:32)
[2022-08-23 10:11] LABS: HEMATOCRIT 25.7 % (32.4-45.2); HEMOGLOBIN 8.3 GM/dL (10.7-15.3); MCH 28.1 pg (25.7-33.7); MCHC 32.1 g/dl (32.0-36.0); MEAN CELL VOLUME 87.6 fl (80-96); MEAN PLT VOLUME 9.8 fl (7.5-11.1); RBC 2.94 M/mm3 (3.60-5.2); RDW 21.2 % (11.6-15.6); WHITE BLOOD COUNT 16.2 K/mm3 (4.0-10.0)
[2022-08-23 10:20] LABS: CHLORIDE 110 mmol/L (98-107); SODIUM 144 mmol/L (136-145)
[2022-08-23] MEDS: FENTANYL NS IVPB 500 MCG/100 ML BAG IVPB SCH ×2 (10:21→22:32)
[2022-08-23 10:22] LABS: ALBUMIN 2.4 g/dl (3.4-5.0); ANION GAP 12 MMOL/L (8-16); CALCIUM 7.7 mg/dL (8.5-10.1); CO2 22 mmol/L (21-32)
[2022-08-23 10:23] LABS: GLUCOSE,RANDOM 151 mg/dL (74-106); MAGNESIUM 2.6 mg/dL (1.8-2.4)
[2022-08-23 10:25] LABS: CREATININE 4.6 mg/dL (0.55-1.3); PHOSPHOROUS 5.8 mg/dL (2.5-4.9); SGPT/ALT 118 U/L (13-61)
[2022-08-23 10:27] LABS: BILIRUBIN,TOTAL 2.5 mg/dL (0.2-1); SGOT/AST 28 U/L (15-37); TOT PROT 5.6 g/dl (6.4-8.2)
[2022-08-23 10:28] LABS: ALK PHOS 254 U/L (45-117)
[2022-08-23 10:50] LABS: BLOOD UREA NITROGEN 125.9 mg/dL (7-18)
[2022-08-23 11:23] LABS: PLATELET COUNT 48 10^3/uL (134-434)
[2022-08-23 18:13] LABS: HEMATOCRIT 27.8 % (32.4-45.2); HEMOGLOBIN 8.9 GM/dL (10.7-15.3); MCH 28.1 pg (25.7-33.7); MCHC 31.9 g/dl (32.0-36.0); MEAN CELL VOLUME 88.2 fl (80-96); MEAN PLT VOLUME 10.2 fl (7.5-11.1); PLATELET COUNT 45 10^3/uL (134-434); RBC 3.16 M/mm3 (3.60-5.2); RDW 21.8 % (11.6-15.6); WHITE BLOOD COUNT 17.8 K/mm3 (4.0-10.0)
[2022-08-23] MEDS: PROPOFOL 1,000,000 MCG/100 ML VIAL IVPB SCH (22:29)
[2022-08-23] MEDS: CHLORHEXIDINE GLUCONATE 4% CLEANSER FOR DECOLONIZATION TP SCH (22:30)
[2022-08-24] MEDS: PROPOFOL 1,000,000 MCG/100 ML VIAL IVPB SCH ×5 (01:50→20:30)
[2022-08-24] MEDS: FENTANYL NS IVPB 500 MCG/100 ML BAG IVPB SCH ×5 (02:15→21:28)
[2022-08-24] MEDS ORDERED: FENTANYL NS IVPB 500 MCG/100 ML BAG IVPB ONE (08:43)
[2022-08-24] MEDS: VASOPRESSIN 40 UNITS/100 ML BAG IV SCH (09:46)
[2022-08-24] MEDS: PIPERACILLIN/TAZOB 2.25 GM 2.25 GM in DEXTROSE 5%-WATER - 50 ML IVPB SCH ×2 (11:00→17:27)
[2022-08-24] MEDS: LACTULOSE 20 GM/30 ML UDC (FOR ORAL USE ONLY) GT SCH ×4 (11:00→21:27)
[2022-08-24] MEDS: PANTOPRAZOLE SODIUM 40 MG VIAL IVPUSH SCH ×2 (11:00→21:27)
[2022-08-24] MEDS: RIFAXIMIN 550 MG TABLET GT SCH ×2 (11:00→21:27)
[2022-08-24] MEDS: CHLORHEXIDINE GLUCONATE 4% CLEANSER FOR DECOLONIZATION TP SCH (21:28)
[2022-08-25] MEDS: PIPERACILLIN/TAZOB 2.25 GM 2.25 GM in DEXTROSE 5%-WATER - 50 ML IVPB SCH ×3 (01:14→17:18)
[2022-08-25] MEDS: PROPOFOL 1,000,000 MCG/100 ML VIAL IVPB SCH ×3 (06:23→15:45)
[2022-08-25] MEDS: VASOPRESSIN 40 UNITS/100 ML BAG IV SCH ×3 (06:24→12:00)
[2022-08-25] MEDS: FENTANYL NS IVPB 500 MCG/100 ML BAG IVPB SCH ×2 (06:24→09:44)
[2022-08-25] MEDS ORDERED: SODIUM CHLORIDE 0.9% 500 ML INFUS.BAG IV ONE (07:00)
[2022-08-25 08:00] LABS: CHLORIDE 121 mmol/L (98-107); SODIUM 154 mmol/L (136-145)
[2022-08-25 08:04] LABS: CO2 22 mmol/L (21-32); GLUCOSE,RANDOM 280 mg/dL (74-106); MAGNESIUM 2.5 mg/dL (1.8-2.4)
[2022-08-25 08:07] LABS: PHOSPHOROUS 6.4 mg/dL (2.5-4.9); SGOT/AST 19 U/L (15-37); SGPT/ALT 75 U/L (13-61)
[2022-08-25 08:08] LABS: ALK PHOS 261 U/L (45-117)
[2022-08-25 08:09] LABS: TOT PROT 4.8 g/dl (6.4-8.2)
[2022-08-25 08:12] LABS: BILIRUBIN,TOTAL 1.8 mg/dL (0.2-1)
[2022-08-25 08:13] LABS: HEMOGLOBIN 7.5 GM/dL (10.7-15.3); MCH 28.5 pg (25.7-33.7); MCHC 31.4 g/dl (32.0-36.0); MEAN CELL VOLUME 90.8 fl (80-96); RBC 2.64 M/mm3 (3.60-5.2); RDW 22.1 % (11.6-15.6); WHITE BLOOD COUNT 4.6 K/mm3 (4.0-10.0)
[2022-08-25 08:16] LABS: ANION GAP 11 MMOL/L (8-16)
[2022-08-25 09:14] LABS: PLATELET COUNT 24 10^3/uL (134-434)
[2022-08-25 09:15] LABS: OVALOCYTE 1+; PLATELET ESTIMATE DECREASED
[2022-08-25] MEDS: LACTULOSE 20 GM/30 ML UDC (FOR ORAL USE ONLY) GT SCH ×2 (10:13→13:20)
[2022-08-25] MEDS: PANTOPRAZOLE SODIUM 40 MG VIAL IVPUSH SCH ×2 (10:13→21:24)
[2022-08-25] MEDS: RIFAXIMIN 550 MG TABLET GT SCH ×2 (10:14→21:24)
[2022-08-25] MEDS ORDERED: POTASSIUM CHLORIDE TABS 20 MEQ TABLET.ER (FP) PO ONE (12:52)
[2022-08-25] MEDS: KCL 10 MEQ IVPB 10 MEQ/100 ML INFUS.BAG IVPB SCH ×3 (13:13→15:05)
[2022-08-25] MEDS ORDERED: POTASSIUM CHLORIDE ORAL LIQUID 20 MEQ/15 ML PO ONE (15:07)
[2022-08-25 17:46] LABS: CHLORIDE 123 mmol/L (98-107); SODIUM 155 mmol/L (136-145)
[2022-08-25 17:48] LABS: CALCIUM 8.2 mg/dL (8.5-10.1)
[2022-08-25 17:49] LABS: ALBUMIN 2.2 g/dl (3.4-5.0); ANION GAP 10 MMOL/L (8-16); CO2 22 mmol/L (21-32); GLUCOSE,RANDOM 198 mg/dL (74-106)
[2022-08-25 17:52] LABS: SGOT/AST 20 U/L (15-37); SGPT/ALT 79 U/L (13-61)
[2022-08-25 17:54] LABS: BILIRUBIN,TOTAL 1.9 mg/dL (0.2-1); TOT PROT 5.4 g/dl (6.4-8.2)
[2022-08-25 17:55] LABS: ALK PHOS 298 U/L (45-117); BLOOD UREA NITROGEN 107.2 mg/dL (7-18)
[2022-08-25] MEDS ORDERED: PIPERACILLIN/TAZOB 2.25 GM 2.25 GM in DEXTROSE 5%-WATER - 50 ML IVPB SCH (18:00)
[2022-08-25] MEDS: CHLORHEXIDINE GLUCONATE 4% CLEANSER FOR DECOLONIZATION TP SCH (21:24)
[2022-08-26] MEDS: PIPERACILLIN/TAZOB 2.25 GM 2.25 GM in DEXTROSE 5%-WATER - 50 ML IVPB SCH ×3 (01:03→17:06)
[2022-08-26 07:14] LABS: BASO % 0.2 % (0-2.0); EOS % 0.4 % (0-4.5); HEMATOCRIT 25.3 % (32.4-45.2); HEMOGLOBIN 7.9 GM/dL (10.7-15.3); LYMPH % 2.9 % (8-40); MCHC 31.3 g/dl (32.0-36.0); MEAN CELL VOLUME 92.9 fl (80-96); MEAN PLT VOLUME 10.3 fl (7.5-11.1); MONO % 5.9 % (3.8-10.2); NEUT % 90.6 % (42.8-82.8); PLATELET COUNT 38 10^3/uL (134-434); RBC 2.73 M/mm3 (3.60-5.2); RDW 23.6 % (11.6-15.6)
[2022-08-26 07:21] LABS: INR 1.17 (0.83-1.09); PROTHROMBIN TIME (PATIENT) 13.5 SEC (9.7-13.0)
[2022-08-26 07:39] LABS: CHLORIDE 124 mmol/L (98-107); SODIUM 156 mmol/L (136-145)
[2022-08-26 07:41] LABS: ANION GAP 11 MMOL/L (8-16); CALCIUM 8.1 mg/dL (8.5-10.1); CO2 21 mmol/L (21-32); GLUCOSE,RANDOM 187 mg/dL (74-106); MAGNESIUM 2.4 mg/dL (1.8-2.4)
[2022-08-26 07:44] LABS: CREATININE 3.9 mg/dL (0.55-1.3); SGOT/AST 20 U/L (15-37); SGPT/ALT 64 U/L (13-61)
[2022-08-26 07:45] LABS: PHOSPHOROUS 5.9 mg/dL (2.5-4.9)
[2022-08-26 07:46] LABS: BILIRUBIN,TOTAL 1.6 mg/dL (0.2-1)
[2022-08-26 07:49] LABS: ALK PHOS 264 U/L (45-117); BLOOD UREA NITROGEN 105.9 mg/dL (7-18)
[2022-08-26] MEDS: RIFAXIMIN 550 MG TABLET GT SCH ×2 (09:02→21:03)
[2022-08-26] MEDS: PANTOPRAZOLE SODIUM 40 MG VIAL IVPUSH SCH ×2 (09:02→21:03)
[2022-08-26] MEDS ORDERED: POTASSIUM CHLORIDE ORAL LIQUID 20 MEQ/15 ML PO ONE (09:15)
[2022-08-26] MEDS: VASOPRESSIN 40 UNITS/100 ML BAG IV SCH (09:19)
[2022-08-26] MEDS: KCL 10 MEQ IVPB 10 MEQ/100 ML INFUS.BAG IVPB SCH ×2 (09:35→10:29)
[2022-08-26 09:44] LABS: ANISOCYTOSIS 3+; MACROCYTOSIS 0
[2022-08-26] MEDS ORDERED: DEXMEDETOMIDINE PREMIX 400 MCG/100 ML BAG IVPB ONE (10:27)
[2022-08-26] MEDS: DEXMEDETOMIDINE PREMIX 400 MCG/100 ML BAG IVPB SCH (10:30)
[2022-08-26] MEDS: CHLORHEXIDINE GLUCONATE 4% CLEANSER FOR DECOLONIZATION TP SCH (21:03)
[2022-08-27] MEDS: PIPERACILLIN/TAZOB 2.25 GM 2.25 GM in DEXTROSE 5%-WATER - 50 ML IVPB SCH ×3 (01:26→18:19)
[2022-08-27 07:53] LABS: HEMATOCRIT 24.1 % (32.4-45.2); HEMOGLOBIN 7.7 GM/dL (10.7-15.3); MCH 29.3 pg (25.7-33.7); MCHC 31.8 g/dl (32.0-36.0); MEAN PLT VOLUME 10.6 fl (7.5-11.1); RBC 2.62 M/mm3 (3.60-5.2); RDW 23.6 % (11.6-15.6); WHITE BLOOD COUNT 7.4 K/mm3 (4.0-10.0)
[2022-08-27 08:14] LABS: INR 1.21 (0.83-1.09); PROTHROMBIN TIME (PATIENT) 13.9 SEC (9.7-13.0)
[2022-08-27 08:15] LABS: ACTIVATED PTT 31.7 SECONDS (25.2-36.5)
[2022-08-27 08:37] LABS: CHLORIDE 124 mmol/L (98-107); SODIUM 156 mmol/L (136-145)
[2022-08-27 08:39] LABS: ALBUMIN 2.1 g/dl (3.4-5.0); ANION GAP 10 MMOL/L (8-16); CALCIUM 8.3 mg/dL (8.5-10.1); CO2 21 mmol/L (21-32); GLUCOSE,RANDOM 216 mg/dL (74-106); MAGNESIUM 2.2 mg/dL (1.8-2.4)
[2022-08-27 08:42] LABS: CREATININE 3.3 mg/dL (0.55-1.3); PHOSPHOROUS 4.8 mg/dL (2.5-4.9); SGOT/AST 24 U/L (15-37); SGPT/ALT 59 U/L (13-61)
[2022-08-27 08:44] LABS: BILIRUBIN,TOTAL 2.2 mg/dL (0.2-1); TOT PROT 5.2 g/dl (6.4-8.2)
[2022-08-27 08:49] LABS: ALK PHOS 204 U/L (45-117); BLOOD UREA NITROGEN 114.4 mg/dL (7-18)
[2022-08-27] MEDS: VASOPRESSIN 40 UNITS/100 ML BAG IV SCH (10:56)
[2022-08-27 10:58] LABS: ANISOCYTOSIS 3+; MACROCYTOSIS 0; OVALOCYTE 1+
[2022-08-27] MEDS: PANTOPRAZOLE SODIUM 40 MG VIAL IVPUSH SCH ×2 (11:08→21:03)
[2022-08-27] MEDS: RIFAXIMIN 550 MG TABLET GT SCH ×2 (11:09→21:06)
[2022-08-27 11:24] LABS: PLATELET COUNT 21 10^3/uL (134-434)
[2022-08-27] MEDS ORDERED: ROCURONIUM BROMIDE 50 MG/5 ML VIAL IV ONE (14:56)
[2022-08-27] MEDS ORDERED: PROPOFOL 20 ML ONE (14:57)
[2022-08-27] MEDS ORDERED: ROCURONIUM BROMIDE 50 MG/5 ML VIAL ONE (15:27)
[2022-08-27] MEDS ORDERED: DESMOPRESSIN ACETATE 4 MCG/ML AMP IVPB ONE (15:58)
[2022-08-27] MEDS: ALBUTEROL SO4 2.5/IPRATROPIUM 0.5 INH SOL 3 ML VIAL.NEB. NEB SCH ×2 (16:17→20:33)
[2022-08-27] MEDS ORDERED: DESMOPRESSIN ACETATE 20 MCG in SODIUM CHLORIDE 50 ML IVPB ONE (16:45)
[2022-08-27] MEDS: DEXMEDETOMIDINE PREMIX 400 MCG/100 ML BAG IVPB SCH (18:13)
[2022-08-27] MEDS ORDERED: DEXTROSE 5%-WATER - 1,000 ML IV SCH (20:00)
[2022-08-27 20:07] LABS: HEMATOCRIT 21.1 % (32.4-45.2); MCH 28.5 pg (25.7-33.7); MCHC 30.5 g/dl (32.0-36.0); MEAN CELL VOLUME 93.5 fl (80-96); MEAN PLT VOLUME 10.5 fl (7.5-11.1); RBC 2.26 M/mm3 (3.60-5.2); RDW 24.1 % (11.6-15.6)
[2022-08-27 20:25] LABS: HEMOGLOBIN 6.4 GM/dL (10.7-15.3); PLATELET COUNT 26 10^3/uL (134-434)
[2022-08-27] MEDS ORDERED: NOREPINEPHRINE BITARTRATE/D5W 8 MG/250 ML BAG IVPB SCH (20:45)
[2022-08-27] MEDS: CHLORHEXIDINE GLUCONATE 4% CLEANSER FOR DECOLONIZATION TP SCH (21:06)
[2022-08-27 23:22] LABS: ARTERIAL BLD GAS O2 SATURATION 96.8 % (95-98); ARTERIAL BLOOD GAS BASE EXCESS -8.9 mmol/L (-2-2); ARTERIAL BLOOD GAS PO2 105.2 mmHg (80-100); ARTERIAL BLOOD GAS pH 7.228 (7.350-7.450)
[2022-08-28 00:32] LABS: HEMATOCRIT 26.2 % (32.4-45.2); HEMOGLOBIN 8.3 GM/dL (10.7-15.3); MCH 29.9 pg (25.7-33.7); MCHC 31.7 g/dl (32.0-36.0); MEAN CELL VOLUME 94.3 fl (80-96); MEAN PLT VOLUME 10.6 fl (7.5-11.1); RBC 2.78 M/mm3 (3.60-5.2); RDW 20.5 % (11.6-15.6); WHITE BLOOD COUNT 9.5 K/mm3 (4.0-10.0)
[2022-08-28 00:48] LABS: CHLORIDE 124 mmol/L (98-107); SODIUM 154 mmol/L (136-145)
[2022-08-28 00:51] LABS: ALBUMIN 2.2 g/dl (3.4-5.0); ANION GAP 10 MMOL/L (8-16); CO2 20 mmol/L (21-32); GLUCOSE,RANDOM 231 mg/dL (74-106)
[2022-08-28 00:53] LABS: SGPT/ALT 50 U/L (13-61)
[2022-08-28 00:54] LABS: CREATININE 3.1 mg/dL (0.55-1.3); SGOT/AST 22 U/L (15-37)
[2022-08-28 00:55] LABS: BILIRUBIN,TOTAL 2.6 mg/dL (0.2-1); TOT PROT 5.2 g/dl (6.4-8.2)
[2022-08-28 01:02] LABS: ALK PHOS 158 U/L (45-117); BLOOD UREA NITROGEN 105.9 mg/dL (7-18)
[2022-08-28] MEDS: PIPERACILLIN/TAZOB 2.25 GM 2.25 GM in DEXTROSE 5%-WATER - 50 ML IVPB SCH ×3 (01:06→18:18)
[2022-08-28 03:25] LABS: PLATELET COUNT 24.8 10^3/uL (134-434)
[2022-08-28] MEDS: LACTULOSE 20 GM/30 ML UDC (FOR RECTAL USE ONLY) PR SCH (07:07)
[2022-08-28 07:26] LABS: INR 1.15 (0.83-1.09); PROTHROMBIN TIME (PATIENT) 13.3 SEC (9.7-13.0)
[2022-08-28 07:29] LABS: ACTIVATED PTT 30.2 SECONDS (25.2-36.5)
[2022-08-28 07:35] LABS: CHLORIDE 124 mmol/L (98-107); SODIUM 155 mmol/L (136-145)
[2022-08-28 07:38] LABS: CALCIUM 8.2 mg/dL (8.5-10.1)
[2022-08-28 07:39] LABS: ALBUMIN 2.2 g/dl (3.4-5.0); ANION GAP 8 MMOL/L (8-16); CO2 23 mmol/L (21-32); GLUCOSE,RANDOM 215 mg/dL (74-106); MAGNESIUM 2.2 mg/dL (1.8-2.4)
[2022-08-28 07:41] LABS: CREATININE 3.1 mg/dL (0.55-1.3); PHOSPHOROUS 5.6 mg/dL (2.5-4.9); SGOT/AST 18 U/L (15-37); SGPT/ALT 47 U/L (13-61)
[2022-08-28 07:43] LABS: BILIRUBIN,TOTAL 2.9 mg/dL (0.2-1)
[2022-08-28 07:44] LABS: TOT PROT 5.2 g/dl (6.4-8.2)
[2022-08-28 07:45] LABS: ALK PHOS 143 U/L (45-117)
[2022-08-28 07:48] LABS: BLOOD UREA NITROGEN 110.2 mg/dL (7-18)
[2022-08-28 08:06] LABS: HEMATOCRIT 24.8 % (32.4-45.2); HEMOGLOBIN 7.9 GM/dL (10.7-15.3); MCH 29.9 pg (25.7-33.7); MEAN CELL VOLUME 93.3 fl (80-96); RBC 2.66 M/mm3 (3.60-5.2); RDW 20.7 % (11.6-15.6); WHITE BLOOD COUNT 8.2 K/mm3 (4.0-10.0)
[2022-08-28 08:16] LABS: BASO % 0.1 % (0-2.0); EOS % 0.2 % (0-4.5); LYMPH % 2.1 % (8-40); MEAN PLT VOLUME 11.1 fl (7.5-11.1); MONO % 4.6 % (3.8-10.2); PLATELET COUNT 25 10^3/uL (134-434)
[2022-08-28] MEDS: ALBUTEROL SO4 2.5/IPRATROPIUM 0.5 INH SOL 3 ML VIAL.NEB. NEB SCH ×4 (08:19→20:59)
[2022-08-28] MEDS ORDERED: DEXTROSE 5%-WATER - 1,000 ML IV SCH (08:45)
[2022-08-28 09:02] LABS: ANISOCYTOSIS 2+; MACROCYTOSIS 1+; OVALOCYTE 1+
[2022-08-28] MEDS: RIFAXIMIN 550 MG TABLET GT SCH ×2 (09:05→21:33)
[2022-08-28 09:18] LABS: EPI CELLS 10 /uL (0-25.1); HYALINE CASTS 1 /uL (0-3.1); PH,URINE 5.5 (5.0-8.0); URINE APPEARANCE CLEAR; URINE BACTERIA 32 /uL (0-1359); URINE BILIRUBIN NEGATIVE (NEGATIVE); URINE COLOR YELLOW; URINE GLUCOSE (UA) NEGATIVE (NEGATIVE); URINE KETONE NEGATIVE (NEGATIVE); URINE LEUK ESTERASE NEGATIVE (NEGATIVE); URINE NITRITE NEGATIVE (NEGATIVE); URINE PROTEIN 2+ (NEGATIVE); URINE RBC 43 /uL (0-23.9); URINE UROBILINOGEN 0.2 mg/dL (0.2-1.0); URINE WBC 18 /uL (0-25.8)
[2022-08-28] MEDS: DEXMEDETOMIDINE PREMIX 400 MCG/100 ML BAG IVPB SCH (09:19)
[2022-08-28] MEDS: PANTOPRAZOLE SODIUM 40 MG VIAL IVPUSH SCH ×2 (09:19→21:32)
[2022-08-28 10:39] LABS: ARTERIAL BLD GAS O2 SATURATION 98.3 % (95-98); ARTERIAL BLOOD GAS BASE EXCESS -6.6 mmol/L (-2-2); ARTERIAL BLOOD GAS PO2 140.9 mmHg (80-100); ARTERIAL BLOOD GAS pH 7.224 (7.350-7.450)
[2022-08-28 10:41] LABS: VENT MODE A/C; VENT RATE 12
[2022-08-28 12:46] LABS: CHLORIDE 123 mmol/L (98-107); SODIUM 154 mmol/L (136-145)
[2022-08-28 12:48] LABS: ALBUMIN 2.2 g/dl (3.4-5.0); CALCIUM 8.4 mg/dL (8.5-10.1)
[2022-08-28 12:49] LABS: ANION GAP 10 MMOL/L (8-16); CO2 21 mmol/L (21-32); GLUCOSE,RANDOM 242 mg/dL (74-106)
[2022-08-28 12:52] LABS: CREATININE 2.9 mg/dL (0.55-1.3); SGOT/AST 18 U/L (15-37); SGPT/ALT 45 U/L (13-61)
[2022-08-28 12:53] LABS: BILIRUBIN,TOTAL 3.1 mg/dL (0.2-1); TOT PROT 5.2 g/dl (6.4-8.2)
[2022-08-28 12:55] LABS: ALK PHOS 142 U/L (45-117)
[2022-08-28 12:56] LABS: BLOOD UREA NITROGEN 107.2 mg/dL (7-18)
[2022-08-28 13:51] LABS: ARTERIAL BLD GAS O2 SATURATION 95.7 % (95-98); ARTERIAL BLOOD GAS BASE EXCESS -7.2 mmol/L (-2-2); ARTERIAL BLOOD GAS PO2 90.6 mmHg (80-100); ARTERIAL BLOOD GAS pH 7.261 (7.350-7.450)
[2022-08-28 13:52] LABS: VENT MODE A/C
[2022-08-28 13:53] LABS: VENT RATE 16
[2022-08-28 14:49] LABS: YEAST NONE SEEN (NEGATIVE)
[2022-08-28] MEDS: VASOPRESSIN 40 UNITS/100 ML BAG IV SCH (15:01)
[2022-08-28] MEDS: FENTANYL NS IVPB 500 MCG/100 ML BAG IVPB SCH (16:43)
[2022-08-28] MEDS: ARTIFICIAL TEARS (POLYVINYL ALCOHOL) OPTH DROPS OU SCH ×2 (16:45→21:33)
[2022-08-28] MEDS: DEXTROSE 5%-WATER - 1,000 ML IV SCH (18:17)
[2022-08-28] MEDS: CHLORHEXIDINE GLUCONATE 4% CLEANSER FOR DECOLONIZATION TP SCH (21:32)
[2022-08-29] MEDS: PIPERACILLIN/TAZOB 2.25 GM 2.25 GM in DEXTROSE 5%-WATER - 50 ML IVPB SCH ×3 (01:02→18:22)
[2022-08-29] MEDS: DEXTROSE 5%-WATER - 1,000 ML IV SCH ×2 (02:00→18:23)
[2022-08-29 06:29] LABS: ARTERIAL BLD GAS O2 SATURATION 95.9 % (95-98); ARTERIAL BLOOD GAS PO2 104.7 mmHg (80-100)
[2022-08-29] MEDS: ARTIFICIAL TEARS (POLYVINYL ALCOHOL) OPTH DROPS OU SCH ×3 (06:29→21:12)
[2022-08-29] MEDS: LACTULOSE 20 GM/30 ML UDC (FOR RECTAL USE ONLY) PR SCH (06:30)
[2022-08-29 06:35] LABS: ARTERIAL BLOOD GAS pH 7.136 (7.350-7.450); VENT MODE A/C; VENT RATE 16
[2022-08-29 07:37] LABS: INR 1.26 (0.83-1.09); PROTHROMBIN TIME (PATIENT) 14.5 SEC (9.7-13.0)
[2022-08-29 07:38] LABS: ACTIVATED PTT 28.8 SECONDS (25.2-36.5)
[2022-08-29 07:41] LABS: BASO % 0.2 % (0-2.0); EOS % 0.8 % (0-4.5); HEMATOCRIT 26.4 % (32.4-45.2); HEMOGLOBIN 8.5 GM/dL (10.7-15.3); LYMPH % 3.7 % (8-40); MCH 29.9 pg (25.7-33.7); MCHC 32.3 g/dl (32.0-36.0); MEAN CELL VOLUME 92.8 fl (80-96); MEAN PLT VOLUME 9.1 fl (7.5-11.1); MONO % 6.4 % (3.8-10.2); NEUT % 88.9 % (42.8-82.8); RBC 2.85 M/mm3 (3.60-5.2); RDW 20.8 % (11.6-15.6); WHITE BLOOD COUNT 7.6 K/mm3 (4.0-10.0)
[2022-08-29] MEDS: ALBUTEROL SO4 2.5/IPRATROPIUM 0.5 INH SOL 3 ML VIAL.NEB. NEB SCH ×4 (07:50→20:41)
[2022-08-29 07:52] LABS: ALBUMIN 2.2 g/dl (3.4-5.0); BLOOD UREA NITROGEN 96.6 mg/dL (7-18); CALCIUM 8.1 mg/dL (8.5-10.1); PLATELET COUNT 20 10^3/uL (134-434)
[2022-08-29 07:56] LABS: CREATININE 2.5 mg/dL (0.55-1.3); PHOSPHOROUS 4.6 mg/dL (2.5-4.9)
[2022-08-29 07:58] LABS: TOT PROT 5.2 g/dl (6.4-8.2)
[2022-08-29 08:47] LABS: PLATELET ESTIMATE DECREASED
[2022-08-29] MEDS: VASOPRESSIN 40 UNITS/100 ML BAG IV SCH (09:01)
[2022-08-29] MEDS: RIFAXIMIN 550 MG TABLET GT SCH ×2 (11:15→21:12)
[2022-08-29] MEDS: DEXMEDETOMIDINE PREMIX 400 MCG/100 ML BAG IVPB SCH (11:15)
[2022-08-29] MEDS: PANTOPRAZOLE SODIUM 40 MG VIAL IVPUSH SCH ×2 (11:25→21:12)
[2022-08-29 11:27] LABS: ARTERIAL BLD GAS O2 SATURATION 97.5 % (95-98); ARTERIAL BLOOD GAS BASE EXCESS -7.5 mmol/L (-2-2); ARTERIAL BLOOD GAS PO2 108.3 mmHg (80-100); ARTERIAL BLOOD GAS pH 7.292 (7.350-7.450)
[2022-08-29 11:28] LABS: VENT MODE A/C; VENT RATE 24
[2022-08-29] MEDS ORDERED: LACTULOSE 20 GM/30 ML UDC (FOR ORAL USE ONLY) PO PRN (12:18)
[2022-08-29 14:15] LABS: BILIRUBIN,DIRECT 4.4 mg/dL (0.0-0.2)
[2022-08-29] MEDS: FENTANYL NS IVPB 500 MCG/100 ML BAG IVPB SCH (16:27)
[2022-08-29 17:29] LABS: ARTERIAL BLD GAS O2 SATURATION 96.7 % (95-98); ARTERIAL BLOOD GAS BASE EXCESS -7.7 mmol/L (-2-2); ARTERIAL BLOOD GAS PO2 97.6 mmHg (80-100); ARTERIAL BLOOD GAS pH 7.279 (7.350-7.450)
[2022-08-29 17:38] LABS: VENT MODE A/C; VENT RATE 24
[2022-08-29] MEDS: CHLORHEXIDINE GLUCONATE 4% CLEANSER FOR DECOLONIZATION TP SCH (21:12)
[2022-08-30] MEDS: PIPERACILLIN/TAZOB 2.25 GM 2.25 GM in DEXTROSE 5%-WATER - 50 ML IVPB SCH ×3 (02:05→17:35)
[2022-08-30] MEDS: FENTANYL NS IVPB 500 MCG/100 ML BAG IVPB SCH ×4 (02:06→21:24)
[2022-08-30] MEDS: ARTIFICIAL TEARS (POLYVINYL ALCOHOL) OPTH DROPS OU SCH ×3 (06:48→21:25)
[2022-08-30 06:50] LABS: ARTERIAL BLD GAS O2 SATURATION 95.3 % (95-98); ARTERIAL BLOOD GAS BASE EXCESS -6.6 mmol/L (-2-2); ARTERIAL BLOOD GAS pH 7.307 (7.350-7.450)
[2022-08-30 06:52] LABS: VENT MODE A/C; VENT RATE 24
[2022-08-30 07:34] LABS: BASO % 0.4 % (0-2.0); EOS % 1.2 % (0-4.5); HEMATOCRIT 25.7 % (32.4-45.2); HEMOGLOBIN 8.6 GM/dL (10.7-15.3); MCH 30.3 pg (25.7-33.7); MCHC 33.4 g/dl (32.0-36.0); MEAN CELL VOLUME 90.8 fl (80-96); MONO % 5.7 % (3.8-10.2); NEUT % 87.7 % (42.8-82.8); RBC 2.83 M/mm3 (3.60-5.2); RDW 20.8 % (11.6-15.6); WHITE BLOOD COUNT 6.9 K/mm3 (4.0-10.0)
[2022-08-30] MEDS: ALBUTEROL SO4 2.5/IPRATROPIUM 0.5 INH SOL 3 ML VIAL.NEB. NEB SCH ×4 (07:40→20:40)
[2022-08-30 07:43] LABS: INR 1.34 (0.83-1.09); PROTHROMBIN TIME (PATIENT) 15.4 SEC (9.7-13.0)
[2022-08-30 07:45] LABS: ACTIVATED PTT 28.5 SECONDS (25.2-36.5)
[2022-08-30 07:46] LABS: PLATELET COUNT 11 10^3/uL (134-434)
[2022-08-30 07:59] LABS: CALCIUM 7.8 mg/dL (8.5-10.1)
[2022-08-30 08:00] LABS: BLOOD UREA NITROGEN 76.1 mg/dL (7-18); MAGNESIUM 1.7 mg/dL (1.8-2.4)
[2022-08-30 08:02] LABS: CREATININE 2.1 mg/dL (0.55-1.3); PHOSPHOROUS 2.9 mg/dL (2.5-4.9)
[2022-08-30 08:04] LABS: BILIRUBIN,TOTAL 7.4 mg/dL (0.2-1); TOT PROT 5.2 g/dl (6.4-8.2)
[2022-08-30 08:51] LABS: ANISOCYTOSIS 2+; MACROCYTOSIS 2+; OVALOCYTE 1+; PLATELET ESTIMATE DECREASED
[2022-08-30] MEDS: PANTOPRAZOLE SODIUM 40 MG VIAL IVPUSH SCH ×2 (09:00→21:24)
[2022-08-30] MEDS: RIFAXIMIN 550 MG TABLET GT SCH ×2 (09:00→21:24)
[2022-08-30] MEDS ORDERED: POTASSIUM CHLORIDE ORAL LIQUID 20 MEQ/15 ML PO ONE (12:47)
[2022-08-30 15:04] LABS: ARTERIAL BLD GAS O2 SATURATION 97.3 % (95-98); ARTERIAL BLOOD GAS BASE EXCESS -7.7 mmol/L (-2-2); ARTERIAL BLOOD GAS PO2 98.7 mmHg (80-100); ARTERIAL BLOOD GAS pH 7.354 (7.350-7.450)
[2022-08-30 15:06] LABS: VENT MODE PSV
[2022-08-30 20:35] LABS: HEMATOCRIT 23.1 % (32.4-45.2); HEMOGLOBIN 7.6 GM/dL (10.7-15.3); MCHC 33.1 g/dl (32.0-36.0); MEAN CELL VOLUME 90.5 fl (80-96); MEAN PLT VOLUME 11.9 fl (7.5-11.1); RBC 2.55 M/mm3 (3.60-5.2); RDW 21.4 % (11.6-15.6); WHITE BLOOD COUNT 5.3 K/mm3 (4.0-10.0)
[2022-08-30 20:40] LABS: PLATELET COUNT 11 10^3/uL (134-434)
[2022-08-30] MEDS: CHLORHEXIDINE GLUCONATE 4% CLEANSER FOR DECOLONIZATION TP SCH (21:25)
[2022-08-31] MEDS: FENTANYL NS IVPB 500 MCG/100 ML BAG IVPB SCH ×2 (00:40→22:56)
[2022-08-31] MEDS: ARTIFICIAL TEARS (POLYVINYL ALCOHOL) OPTH DROPS OU SCH ×2 (06:17→22:07)
[2022-08-31 06:59] LABS: ARTERIAL BLD GAS O2 SATURATION 93.3 % (95-98); ARTERIAL BLOOD GAS BASE EXCESS -8.9 mmol/L (-2-2); ARTERIAL BLOOD GAS PO2 77.8 mmHg (80-100); ARTERIAL BLOOD GAS pH 7.237 (7.350-7.450)
[2022-08-31 07:00] LABS: HEMATOCRIT 22.6 % (32.4-45.2); HEMOGLOBIN 7.5 GM/dL (10.7-15.3); MCH 30.4 pg (25.7-33.7); MCHC 33.4 g/dl (32.0-36.0); MEAN CELL VOLUME 91.2 fl (80-96); MEAN PLT VOLUME 12.2 fl (7.5-11.1); RBC 2.48 M/mm3 (3.60-5.2); RDW 21.4 % (11.6-15.6); WHITE BLOOD COUNT 5.9 K/mm3 (4.0-10.0)
[2022-08-31 07:05] LABS: INR 1.31 (0.83-1.09); PROTHROMBIN TIME (PATIENT) 15.1 SEC (9.7-13.0)
[2022-08-31 07:06] LABS: ACTIVATED PTT 27.5 SECONDS (25.2-36.5); PLATELET COUNT 10 10^3/uL (134-434)
[2022-08-31 07:13] LABS: VENT MODE A/C
[2022-08-31 07:14] LABS: VENT RATE 24
[2022-08-31 07:21] LABS: CALCIUM 8.1 mg/dL (8.5-10.1); MAGNESIUM 1.6 mg/dL (1.8-2.4)
[2022-08-31 07:22] LABS: ALBUMIN 2.1 g/dl (3.4-5.0); BLOOD UREA NITROGEN 63.8 mg/dL (7-18)
[2022-08-31 07:25] LABS: PHOSPHOROUS 3.8 mg/dL (2.5-4.9)
[2022-08-31 07:26] LABS: CREATININE 1.8 mg/dL (0.55-1.3)
[2022-08-31 07:27] LABS: TOT PROT 5.1 g/dl (6.4-8.2)
[2022-08-31] MEDS: ALBUTEROL SO4 2.5/IPRATROPIUM 0.5 INH SOL 3 ML VIAL.NEB. NEB SCH ×4 (08:27→20:24)
[2022-08-31 08:30] LABS: ANISOCYTOSIS 2+; MACROCYTOSIS 0; PLATELET ESTIMATE DECREASED
[2022-08-31 08:56] LABS: BILIRUBIN,DIRECT 6.4 mg/dL (0.0-0.2)
[2022-08-31] MEDS ORDERED: DEXTROSE 5%-WATER - 1,000 ML IV SCH (09:30)
[2022-08-31] MEDS ORDERED: methaDONE HCL 10 MG TABLET PO SCH (09:45)
[2022-08-31] MEDS ORDERED: POTASSIUM CHLORIDE ORAL LIQUID 20 MEQ/15 ML PO ONE (09:45)
[2022-08-31] MEDS ORDERED: MAGNESIUM 1GM/D5W - 1 GM/100 ML IVPB IVPB ONE (10:00)
[2022-08-31] MEDS: PANTOPRAZOLE SODIUM 40 MG VIAL IVPUSH SCH ×2 (10:24→22:08)
[2022-08-31] MEDS: RIFAXIMIN 550 MG TABLET GT SCH ×2 (10:25→22:09)
[2022-08-31] MEDS: CHLORHEXIDINE GLUCONATE 4% CLEANSER FOR DECOLONIZATION TP SCH (22:08)
[2022-08-31 23:20] LABS: HEMATOCRIT 23.2 % (32.4-45.2); HEMOGLOBIN 7.7 GM/dL (10.7-15.3); MCH 30.7 pg (25.7-33.7); MCHC 33.3 g/dl (32.0-36.0); MEAN CELL VOLUME 92.3 fl (80-96); MEAN PLT VOLUME 11.5 fl (7.5-11.1); RBC 2.51 M/mm3 (3.60-5.2); RDW 22.6 % (11.6-15.6)
[2022-08-31 23:37] LABS: PLATELET COUNT 12 10^3/uL (134-434)
[2022-09-01 06:45] LABS: ARTERIAL BLD GAS O2 SATURATION 98.1 % (95-98); ARTERIAL BLOOD GAS BASE EXCESS -7.3 mmol/L (-2-2); ARTERIAL BLOOD GAS pH 7.285 (7.350-7.450)
[2022-09-01 07:02] LABS: VENT MODE A/C; VENT RATE 24
[2022-09-01 07:29] LABS: INR 1.25 (0.83-1.09); PROTHROMBIN TIME (PATIENT) 14.4 SEC (9.7-13.0)
[2022-09-01 07:31] LABS: ACTIVATED PTT 27.6 SECONDS (25.2-36.5)
[2022-09-01 07:32] LABS: HEMATOCRIT 22.4 % (32.4-45.2); HEMOGLOBIN 7.4 GM/dL (10.7-15.3); MCH 30.5 pg (25.7-33.7); MCHC 33.1 g/dl (32.0-36.0); MEAN CELL VOLUME 92.2 fl (80-96); MEAN PLT VOLUME 11.4 fl (7.5-11.1); RBC 2.43 M/mm3 (3.60-5.2); RDW 22.6 % (11.6-15.6); WHITE BLOOD COUNT 5.8 K/mm3 (4.0-10.0)
[2022-09-01 07:38] LABS: PLATELET COUNT 13 10^3/uL (134-434)
[2022-09-01] MEDS: ALBUTEROL SO4 2.5/IPRATROPIUM 0.5 INH SOL 3 ML VIAL.NEB. NEB SCH ×4 (07:55→20:47)
[2022-09-01 08:01] LABS: ALBUMIN 2.2 g/dl (3.4-5.0); CALCIUM 8.1 mg/dL (8.5-10.1)
[2022-09-01 08:03] LABS: CREATININE 1.8 mg/dL (0.55-1.3)
[2022-09-01 08:04] LABS: TOT PROT 5.5 g/dl (6.4-8.2)
[2022-09-01 08:08] LABS: BILIRUBIN,TOTAL 5.2 mg/dL (0.2-1)
[2022-09-01 08:49] LABS: ANISOCYTOSIS 1+; MACROCYTOSIS 1+
[2022-09-01] MEDS ORDERED: morphine SULFATE 4 MG/ML VIAL IVPUSH ONE (10:10)
[2022-09-01] MEDS: PANTOPRAZOLE SODIUM 40 MG VIAL IVPUSH SCH ×2 (10:37→21:23)
[2022-09-01] MEDS: RIFAXIMIN 550 MG TABLET GT SCH ×2 (10:42→21:23)
[2022-09-01] MEDS: ARTIFICIAL TEARS (POLYVINYL ALCOHOL) OPTH DROPS OU SCH ×2 (14:10→21:50)
[2022-09-01] MEDS: methylPREDNISolone NA SUCC 40 MG/1 ML VIAL IVPUSH SCH ×2 (14:11→21:23)
[2022-09-01] MEDS ORDERED: DEXTROSE 5%-WATER - 1,000 ML IV SCH (14:15)
[2022-09-01] MEDS: morphine SULFATE 4 MG/ML VIAL IVPUSH PRN ×2 (18:04→21:51)
[2022-09-01 18:13] LABS: ARTERIAL BLD GAS O2 SATURATION 96.3 % (95-98); ARTERIAL BLOOD GAS BASE EXCESS -5.2 mmol/L (-2-2); ARTERIAL BLOOD GAS PO2 86.5 mmHg (80-100); ARTERIAL BLOOD GAS pH 7.362 (7.350-7.450)
[2022-09-01 18:14] LABS: VENT MODE V-AC; VENT RATE 16
[2022-09-01] MEDS: CHLORHEXIDINE GLUCONATE 4% CLEANSER FOR DECOLONIZATION TP SCH (21:21)
[2022-09-02 06:17] LABS: ARTERIAL BLD GAS O2 SATURATION 95.9 % (95-98); ARTERIAL BLOOD GAS BASE EXCESS -6.9 mmol/L (-2-2); ARTERIAL BLOOD GAS PO2 90.9 mmHg (80-100); ARTERIAL BLOOD GAS pH 7.269 (7.350-7.450)
[2022-09-02 06:24] LABS: VENT MODE A/C; VENT RATE 16
[2022-09-02] MEDS: ARTIFICIAL TEARS (POLYVINYL ALCOHOL) OPTH DROPS OU SCH ×3 (06:32→21:47)
[2022-09-02] MEDS: methylPREDNISolone NA SUCC 40 MG/1 ML VIAL IVPUSH SCH ×2 (06:33→12:08)
[2022-09-02 08:02] LABS: HEMATOCRIT 22.1 % (32.4-45.2); HEMOGLOBIN 7.1 GM/dL (10.7-15.3); MCH 30.7 pg (25.7-33.7); MCHC 32.3 g/dl (32.0-36.0); MEAN PLT VOLUME 11.2 fl (7.5-11.1); RBC 2.33 M/mm3 (3.60-5.2); RDW 22.9 % (11.6-15.6); WHITE BLOOD COUNT 5.7 K/mm3 (4.0-10.0)
[2022-09-02 08:14] LABS: PLATELET COUNT 17 10^3/uL (134-434)
[2022-09-02 08:24] LABS: CALCIUM 7.7 mg/dL (8.5-10.1)
[2022-09-02 08:26] LABS: BLOOD UREA NITROGEN 60.6 mg/dL (7-18)
[2022-09-02] MEDS: ALBUTEROL SO4 2.5/IPRATROPIUM 0.5 INH SOL 3 ML VIAL.NEB. NEB SCH ×4 (08:26→20:40)
[2022-09-02 08:27] LABS: CREATININE 1.7 mg/dL (0.55-1.3)
[2022-09-02 08:29] LABS: BILIRUBIN,TOTAL 3.3 mg/dL (0.2-1); TOT PROT 5.4 g/dl (6.4-8.2)
[2022-09-02 08:42] LABS: ACTIVATED PTT 27.8 SECONDS (25.2-36.5); INR 1.32 (0.83-1.09); PROTHROMBIN TIME (PATIENT) 15.2 SEC (9.7-13.0)
[2022-09-02] MEDS: morphine SULFATE 4 MG/ML VIAL IVPUSH PRN ×3 (09:16→23:45)
[2022-09-02] MEDS: PANTOPRAZOLE SODIUM 40 MG VIAL IVPUSH SCH ×2 (09:48→21:47)
[2022-09-02] MEDS: RIFAXIMIN 550 MG TABLET GT SCH ×2 (09:49→21:47)
[2022-09-02 10:27] LABS: ANISOCYTOSIS 0; MACROCYTOSIS 0; TEAR DROP CELLS 1+
[2022-09-02 11:40] LABS: ARTERIAL BLD GAS O2 SATURATION 94.7 % (95-98); ARTERIAL BLOOD GAS BASE EXCESS -7.4 mmol/L (-2-2); ARTERIAL BLOOD GAS PO2 86.3 mmHg (80-100); ARTERIAL BLOOD GAS pH 7.228 (7.350-7.450)
[2022-09-02 11:42] LABS: ALLENS TEST POSITIVE
[2022-09-02 11:43] LABS: VENT MODE A/C; VENT RATE 18
[2022-09-02] MEDS: LACTULOSE 20 GM/30 ML UDC (FOR ORAL USE ONLY) PO SCH ×2 (14:29→21:47)
[2022-09-02] MEDS: CHLORHEXIDINE GLUCONATE 4% CLEANSER FOR DECOLONIZATION TP SCH (21:47)
[2022-09-03] MEDS: LACTULOSE 20 GM/30 ML UDC (FOR ORAL USE ONLY) PO SCH ×3 (05:42→21:25)
[2022-09-03] MEDS: ARTIFICIAL TEARS (POLYVINYL ALCOHOL) OPTH DROPS OU SCH ×3 (05:42→21:25)
[2022-09-03 05:57] LABS: ARTERIAL BLD GAS O2 SATURATION 96.3 % (95-98); ARTERIAL BLOOD GAS BASE EXCESS -8.5 mmol/L (-2-2); ARTERIAL BLOOD GAS PO2 110.6 mmHg (80-100)
[2022-09-03 06:06] LABS: ALLENS TEST POSITIVE; VENT MODE A/C; VENT RATE 18
[2022-09-03 07:53] LABS: HEMATOCRIT 24.6 % (32.4-45.2); HEMOGLOBIN 7.9 GM/dL (10.7-15.3); MCHC 31.9 g/dl (32.0-36.0); MEAN CELL VOLUME 97.1 fl (80-96); RBC 2.54 M/mm3 (3.60-5.2); RDW 23.8 % (11.6-15.6)
[2022-09-03 07:56] LABS: INR 1.33 (0.83-1.09); PROTHROMBIN TIME (PATIENT) 15.3 SEC (9.7-13.0)
[2022-09-03 07:59] LABS: ACTIVATED PTT 26.4 SECONDS (25.2-36.5)
[2022-09-03 08:23] LABS: PLATELET COUNT 12 10^3/uL (134-434)
[2022-09-03] MEDS: ALBUTEROL SO4 2.5/IPRATROPIUM 0.5 INH SOL 3 ML VIAL.NEB. NEB SCH ×4 (08:25→20:17)
[2022-09-03 08:35] LABS: ARTERIAL BLD GAS O2 SATURATION 94.5 % (95-98); ARTERIAL BLOOD GAS BASE EXCESS -5.5 mmol/L (-2-2); ARTERIAL BLOOD GAS PO2 85.8 mmHg (80-100); ARTERIAL BLOOD GAS pH 7.223 (7.350-7.450)
[2022-09-03 08:44] LABS: ALLENS TEST POSITIVE
[2022-09-03 08:45] LABS: VENT MODE A/C; VENT RATE 22
[2022-09-03 08:46] LABS: ALBUMIN 2.1 g/dl (3.4-5.0); CALCIUM 8.6 mg/dL (8.5-10.1)
[2022-09-03 08:47] LABS: BLOOD UREA NITROGEN 68.5 mg/dL (7-18)
[2022-09-03 08:50] LABS: CREATININE 1.7 mg/dL (0.55-1.3)
[2022-09-03 08:51] LABS: BILIRUBIN,TOTAL 2.7 mg/dL (0.2-1); TOT PROT 5.6 g/dl (6.4-8.2)
[2022-09-03 09:25] LABS: PLATELET ESTIMATE DECREASED
[2022-09-03] MEDS: RIFAXIMIN 550 MG TABLET GT SCH (09:34)
[2022-09-03] MEDS: methylPREDNISolone NA SUCC 40 MG/1 ML VIAL IVPUSH SCH (09:34)
[2022-09-03] MEDS: PANTOPRAZOLE SODIUM 40 MG VIAL IVPUSH SCH ×2 (09:34→21:25)
[2022-09-03] MEDS: morphine SULFATE 4 MG/ML VIAL IVPUSH PRN ×3 (11:35→22:06)
[2022-09-03 12:01] LABS: ARTERIAL BLD GAS O2 SATURATION 93.8 % (95-98); ARTERIAL BLOOD GAS BASE EXCESS -7.4 mmol/L (-2-2); ARTERIAL BLOOD GAS PO2 78.5 mmHg (80-100); ARTERIAL BLOOD GAS pH 7.262 (7.350-7.450)
[2022-09-03 12:04] LABS: VENT MODE A/C; VENT RATE 22
[2022-09-03] MEDS: CHLORHEXIDINE GLUCONATE 4% CLEANSER FOR DECOLONIZATION TP SCH (21:25)
[2022-09-04] MEDS: ARTIFICIAL TEARS (POLYVINYL ALCOHOL) OPTH DROPS OU SCH ×5 (06:16→22:25)
[2022-09-04] MEDS: LACTULOSE 20 GM/30 ML UDC (FOR ORAL USE ONLY) PO SCH ×4 (06:16→22:26)
[2022-09-04 06:33] LABS: ARTERIAL BLD GAS O2 SATURATION 87.1 % (95-98); ARTERIAL BLOOD GAS BASE EXCESS -5.7 mmol/L (-2-2); ARTERIAL BLOOD GAS PO2 67.6 mmHg (80-100)
[2022-09-04 07:04] LABS: ALLENS TEST POSITIVE
[2022-09-04 07:05] LABS: VENT MODE V-A/C; VENT RATE 22
[2022-09-04 07:15] LABS: ARTERIAL BLOOD GAS pH 7.154 (7.350-7.450)
[2022-09-04 07:17] LABS: BASO % 0.3 % (0-2.0); EOS % 0.2 % (0-4.5); HEMATOCRIT 24.5 % (32.4-45.2); HEMOGLOBIN 7.9 GM/dL (10.7-15.3); LYMPH % 5.2 % (8-40); MCH 31.2 pg (25.7-33.7); MCHC 32.1 g/dl (32.0-36.0); MEAN CELL VOLUME 97.4 fl (80-96); MEAN PLT VOLUME 12.2 fl (7.5-11.1); MONO % 7.5 % (3.8-10.2); NEUT % 86.8 % (42.8-82.8); RBC 2.52 M/mm3 (3.60-5.2); RDW 26.1 % (11.6-15.6); WHITE BLOOD COUNT 9.2 K/mm3 (4.0-10.0)
[2022-09-04 07:27] LABS: INR 1.26 (0.83-1.09); PROTHROMBIN TIME (PATIENT) 14.5 SEC (9.7-13.0)
[2022-09-04 07:30] LABS: ACTIVATED PTT 18.7 SECONDS (25.2-36.5)
[2022-09-04 07:32] LABS: PLATELET COUNT 12 10^3/uL (134-434)
[2022-09-04 07:57] LABS: CALCIUM 8.3 mg/dL (8.5-10.1)
[2022-09-04 07:58] LABS: ALBUMIN 2.1 g/dl (3.4-5.0); BLOOD UREA NITROGEN 74.4 mg/dL (7-18)
[2022-09-04 08:01] LABS: CREATININE 1.7 mg/dL (0.55-1.3)
[2022-09-04 08:02] LABS: BILIRUBIN,TOTAL 2.7 mg/dL (0.2-1)
[2022-09-04 08:03] LABS: TOT PROT 5.4 g/dl (6.4-8.2)
[2022-09-04] MEDS: ALBUTEROL SO4 2.5/IPRATROPIUM 0.5 INH SOL 3 ML VIAL.NEB. NEB SCH ×4 (08:51→20:05)
[2022-09-04] MEDS: methylPREDNISolone NA SUCC 40 MG/1 ML VIAL IVPUSH SCH (09:21)
[2022-09-04] MEDS: PANTOPRAZOLE SODIUM 40 MG VIAL IVPUSH SCH ×3 (09:21→22:26)
[2022-09-04] MEDS ORDERED: SODIUM ZIRCONIUM CYCLOSILICATE (LOKELMA) 5 GM PACKET PO SCH (13:15)
[2022-09-04] MEDS ORDERED: SODIUM ZIRCONIUM CYCLOSILICATE (LOKELMA) 10 GM PACKET PO SCH (14:21)
[2022-09-04 15:36] LABS: ARTERIAL BLD GAS O2 SATURATION 95.5 % (95-98); ARTERIAL BLOOD GAS BASE EXCESS -1.5 mmol/L (-2-2); ARTERIAL BLOOD GAS PO2 82.2 mmHg (80-100); ARTERIAL BLOOD GAS pH 7.341 (7.350-7.450)
[2022-09-04 15:38] LABS: ALLENS TEST POSITIVE
[2022-09-04 15:39] LABS: VENT MODE V-AC; VENT RATE 24
[2022-09-04] MEDS: morphine SULFATE 4 MG/ML VIAL IVPUSH PRN (21:02)
[2022-09-04] MEDS: CHLORHEXIDINE GLUCONATE 4% CLEANSER FOR DECOLONIZATION TP SCH (21:03)
[2022-09-04] MEDS ORDERED: BISACODYL 5 MG TABLET.DR (FP) PO PRN (21:19)
[2022-09-05] MEDS: LACTULOSE 20 GM/30 ML UDC (FOR ORAL USE ONLY) PO SCH ×3 (06:29→21:18)
[2022-09-05] MEDS: ARTIFICIAL TEARS (POLYVINYL ALCOHOL) OPTH DROPS OU SCH ×3 (06:29→21:18)
[2022-09-05 06:43] LABS: ARTERIAL BLD GAS O2 SATURATION 97.2 % (95-98); ARTERIAL BLOOD GAS BASE EXCESS -1.5 mmol/L (-2-2); ARTERIAL BLOOD GAS PO2 95.2 mmHg (80-100)
[2022-09-05 06:52] LABS: ALLENS TEST POSITIVE
[2022-09-05 06:53] LABS: VENT MODE A/C; VENT RATE 24
[2022-09-05] MEDS: ALBUTEROL SO4 2.5/IPRATROPIUM 0.5 INH SOL 3 ML VIAL.NEB. NEB SCH ×4 (07:55→20:05)
[2022-09-05] MEDS ORDERED: SODIUM ZIRCONIUM CYCLOSILICATE (LOKELMA) 10 GM PACKET PO SCH (10:00)
[2022-09-05] MEDS: methylPREDNISolone NA SUCC 40 MG/1 ML VIAL IVPUSH SCH (10:51)
[2022-09-05] MEDS: PANTOPRAZOLE SODIUM 40 MG VIAL IVPUSH SCH ×2 (10:51→21:18)
[2022-09-05 11:25] LABS: BASO % 0.2 % (0-2.0); EOS % 0.6 % (0-4.5); HEMATOCRIT 24.9 % (32.4-45.2); HEMOGLOBIN 8.1 GM/dL (10.7-15.3); LYMPH % 4.2 % (8-40); MCH 31.1 pg (25.7-33.7); MCHC 32.4 g/dl (32.0-36.0); MEAN CELL VOLUME 96.1 fl (80-96); MEAN PLT VOLUME 12.6 fl (7.5-11.1); RBC 2.59 M/mm3 (3.60-5.2); RDW 26.5 % (11.6-15.6); WHITE BLOOD COUNT 8.1 K/mm3 (4.0-10.0)
[2022-09-05 11:27] LABS: PLATELET COUNT 12 10^3/uL (134-434)
[2022-09-05 11:31] LABS: INR 1.35 (0.83-1.09); PROTHROMBIN TIME (PATIENT) 15.6 SEC (9.7-13.0)
[2022-09-05 11:34] LABS: ACTIVATED PTT 26.5 SECONDS (25.2-36.5)
[2022-09-05 11:50] LABS: ALBUMIN 2.1 g/dl (3.4-5.0); BLOOD UREA NITROGEN 73.6 mg/dL (7-18); CALCIUM 8.3 mg/dL (8.5-10.1)
[2022-09-05 11:53] LABS: CREATININE 1.4 mg/dL (0.55-1.3)
[2022-09-05 11:55] LABS: BILIRUBIN,TOTAL 2.9 mg/dL (0.2-1); TOT PROT 5.4 g/dl (6.4-8.2)
[2022-09-05] MEDS: morphine SULFATE 4 MG/ML VIAL IVPUSH PRN (20:28)
[2022-09-06] MEDS: morphine SULFATE 4 MG/ML VIAL IVPUSH PRN ×2 (03:45→23:18)
[2022-09-06 06:13] LABS: ARTERIAL BLD GAS O2 SATURATION 96.4 % (95-98); ARTERIAL BLOOD GAS BASE EXCESS 0 mmol/L (-2-2); ARTERIAL BLOOD GAS PO2 88.7 mmHg (80-100); ARTERIAL BLOOD GAS pH 7.355 (7.350-7.450)
[2022-09-06 06:14] LABS: VENT MODE V-A/C
[2022-09-06 06:15] LABS: VENT RATE 24
[2022-09-06] MEDS: LACTULOSE 20 GM/30 ML UDC (FOR ORAL USE ONLY) PO SCH ×3 (06:23→22:00)
[2022-09-06] MEDS: ARTIFICIAL TEARS (POLYVINYL ALCOHOL) OPTH DROPS OU SCH ×3 (06:24→22:00)
[2022-09-06] MEDS: ALBUTEROL SO4 2.5/IPRATROPIUM 0.5 INH SOL 3 ML VIAL.NEB. NEB SCH ×4 (08:02→20:20)
[2022-09-06] MEDS: methylPREDNISolone NA SUCC 40 MG/1 ML VIAL IVPUSH SCH (09:17)
[2022-09-06] MEDS: PANTOPRAZOLE SODIUM 40 MG VIAL IVPUSH SCH ×2 (09:18→22:00)
[2022-09-06] MEDS ORDERED: methylPREDNISolone NA SUCC 40 MG/1 ML VIAL IVPUSH SCH (10:45)
[2022-09-06] MEDS: INSULIN SLIDING SCALE (NOVOLOG) 1 VIAL SQ SCH ×2 (11:04→16:02)
[2022-09-06 12:30] LABS: HEMATOCRIT 28.2 % (32.4-45.2); HEMOGLOBIN 8.9 GM/dL (10.7-15.3); MCH 30.6 pg (25.7-33.7); MCHC 31.4 g/dl (32.0-36.0); MEAN CELL VOLUME 97.5 fl (80-96); RBC 2.89 M/mm3 (3.60-5.2); RDW 26.9 % (11.6-15.6)
[2022-09-06 12:39] LABS: INR 1.28 (0.83-1.09); PROTHROMBIN TIME (PATIENT) 14.7 SEC (9.7-13.0)
[2022-09-06 12:42] LABS: ACTIVATED PTT 25.7 SECONDS (25.2-36.5)
[2022-09-06 12:48] LABS: CALCIUM 8.4 mg/dL (8.5-10.1)
[2022-09-06 12:49] LABS: ALBUMIN 2.3 g/dl (3.4-5.0); BLOOD UREA NITROGEN 66.8 mg/dL (7-18)
[2022-09-06 12:50] LABS: PLATELET COUNT 26 10^3/uL (134-434)
[2022-09-06 12:52] LABS: CREATININE 1.4 mg/dL (0.55-1.3)
[2022-09-06 12:53] LABS: TOT PROT 5.9 g/dl (6.4-8.2)
[2022-09-06 12:54] LABS: BILIRUBIN,TOTAL 2.6 mg/dL (0.2-1)
[2022-09-06 13:48] LABS: ANISOCYTOSIS 2+; MACROCYTOSIS 1+
[2022-09-06] MEDS: INSULIN (LEVEMIR) 100 UNITS/ML UNITS SQ SCH (22:00)
[2022-09-07] MEDS: INSULIN SLIDING SCALE (NOVOLOG) 1 VIAL SQ SCH ×5 (03:21→21:52)
[2022-09-07] MEDS: INSULIN (LEVEMIR) 100 UNITS/ML UNITS SQ SCH ×2 (06:18→21:51)
[2022-09-07] MEDS: LACTULOSE 20 GM/30 ML UDC (FOR ORAL USE ONLY) PO SCH ×4 (06:18→21:51)
[2022-09-07] MEDS: ARTIFICIAL TEARS (POLYVINYL ALCOHOL) OPTH DROPS OU SCH ×4 (06:18→21:51)
[2022-09-07 06:39] LABS: ARTERIAL BLD GAS O2 SATURATION 97.2 % (95-98); ARTERIAL BLOOD GAS BASE EXCESS 1.4 mmol/L (-2-2); ARTERIAL BLOOD GAS PO2 91.5 mmHg (80-100); ARTERIAL BLOOD GAS pH 7.426 (7.350-7.450)
[2022-09-07 06:44] LABS: ALLENS TEST POSITIVE; VENT MODE AC; VENT RATE 24
[2022-09-07 08:13] LABS: BASO % 0.1 % (0-2.0); EOS % 0.1 % (0-4.5); HEMATOCRIT 25.5 % (32.4-45.2); HEMOGLOBIN 8.2 GM/dL (10.7-15.3); LYMPH % 4.2 % (8-40); MCH 31.4 pg (25.7-33.7); MCHC 32.2 g/dl (32.0-36.0); MEAN CELL VOLUME 97.4 fl (80-96); MEAN PLT VOLUME 11.5 fl (7.5-11.1); NEUT % 88.6 % (42.8-82.8); RBC 2.62 M/mm3 (3.60-5.2); RDW 27.4 % (11.6-15.6); WHITE BLOOD COUNT 8.3 K/mm3 (4.0-10.0)
[2022-09-07 08:14] LABS: CALCIUM 8.6 mg/dL (8.5-10.1)
[2022-09-07 08:15] LABS: ALBUMIN 2.1 g/dl (3.4-5.0); BLOOD UREA NITROGEN 67.2 mg/dL (7-18)
[2022-09-07 08:18] LABS: CREATININE 1.3 mg/dL (0.55-1.3); PHOSPHOROUS 3.4 mg/dL (2.5-4.9); TOT PROT 5.4 g/dl (6.4-8.2)
[2022-09-07 08:19] LABS: INR 1.3 (0.83-1.09)
[2022-09-07] MEDS: ALBUTEROL SO4 2.5/IPRATROPIUM 0.5 INH SOL 3 ML VIAL.NEB. NEB SCH ×4 (08:19→20:45)
[2022-09-07 08:21] LABS: ACTIVATED PTT 24.7 SECONDS (25.2-36.5)
[2022-09-07 08:38] LABS: PLATELET COUNT 19 10^3/uL (134-434)
[2022-09-07] MEDS: morphine SULFATE 4 MG/ML VIAL IVPUSH PRN (10:02)
[2022-09-07] MEDS: PANTOPRAZOLE SODIUM 40 MG VIAL IVPUSH SCH ×2 (10:03→21:52)
[2022-09-07] MEDS ORDERED: BISACODYL 5 MG TABLET.DR (FP) PO PRN (13:52)
[2022-09-07] MEDS ORDERED: WATER IV SCH (16:45)
[2022-09-07] MEDS ORDERED: DEXTROSE 5% IV SCH (16:45)
[2022-09-07 19:00] LABS: PH,URINE 5.5 (5.0-8.0); URINE APPEARANCE CLEAR; URINE BILIRUBIN NEGATIVE (NEGATIVE); URINE COLOR YELLOW; URINE GLUCOSE (UA) TRACE (NEGATIVE); URINE KETONE NEGATIVE (NEGATIVE); URINE LEUK ESTERASE NEGATIVE (NEGATIVE); URINE NITRITE NEGATIVE (NEGATIVE); URINE PROTEIN TRACE (NEGATIVE)
[2022-09-07] MEDS: MEROPENEM 1 GM in DEXTROSE 5%-WATER 100 ML IVPB SCH (22:19)
[2022-09-08] MEDS: INSULIN SLIDING SCALE (NOVOLOG) 1 VIAL SQ SCH ×4 (05:17→21:48)
[2022-09-08 06:34] LABS: ARTERIAL BLD GAS O2 SATURATION 95.2 % (95-98); ARTERIAL BLOOD GAS PO2 77.5 mmHg (80-100); ARTERIAL BLOOD GAS pH 7.377 (7.350-7.450)
[2022-09-08] MEDS: ARTIFICIAL TEARS (POLYVINYL ALCOHOL) OPTH DROPS OU SCH ×3 (06:34→21:20)
[2022-09-08] MEDS: LACTULOSE 20 GM/30 ML UDC (FOR ORAL USE ONLY) PO SCH ×3 (06:34→21:19)
[2022-09-08] MEDS: INSULIN (LEVEMIR) 100 UNITS/ML UNITS SQ SCH ×2 (06:34→21:19)
[2022-09-08 06:51] LABS: ALLENS TEST POSITIVE
[2022-09-08 06:52] LABS: VENT MODE A/C; VENT RATE 24
[2022-09-08] MEDS: ALBUTEROL SO4 2.5/IPRATROPIUM 0.5 INH SOL 3 ML VIAL.NEB. NEB SCH ×4 (07:20→20:20)
[2022-09-08 08:04] LABS: INR 1.27 (0.83-1.09); PROTHROMBIN TIME (PATIENT) 14.6 SEC (9.7-13.0)
[2022-09-08 08:07] LABS: BASO % 0.6 % (0-2.0); EOS % 0.4 % (0-4.5); HEMATOCRIT 28.8 % (32.4-45.2); HEMOGLOBIN 9.1 GM/dL (10.7-15.3); LYMPH % 4.2 % (8-40); MCH 30.9 pg (25.7-33.7); MCHC 31.5 g/dl (32.0-36.0); MEAN CELL VOLUME 97.9 fl (80-96); MEAN PLT VOLUME 11.4 fl (7.5-11.1); MONO % 6.4 % (3.8-10.2); NEUT % 88.4 % (42.8-82.8); RBC 2.94 M/mm3 (3.60-5.2); RDW 27.4 % (11.6-15.6); WHITE BLOOD COUNT 9.9 K/mm3 (4.0-10.0)
[2022-09-08 08:08] LABS: ACTIVATED PTT 20.8 SECONDS (25.2-36.5)
[2022-09-08 08:27] LABS: CALCIUM 8.4 mg/dL (8.5-10.1)
[2022-09-08 08:28] LABS: ALBUMIN 2.2 g/dl (3.4-5.0); BLOOD UREA NITROGEN 63.4 mg/dL (7-18); MAGNESIUM 1.9 mg/dL (1.8-2.4)
[2022-09-08 08:31] LABS: CREATININE 1.1 mg/dL (0.55-1.3); PHOSPHOROUS 3.4 mg/dL (2.5-4.9)
[2022-09-08 08:32] LABS: TOT PROT 5.7 g/dl (6.4-8.2)
[2022-09-08 08:40] LABS: PLATELET COUNT 24 10^3/uL (134-434)
[2022-09-08] MEDS: MEROPENEM 1 GM in DEXTROSE 5%-WATER 100 ML IVPB SCH ×2 (09:41→21:29)
[2022-09-08] MEDS: PANTOPRAZOLE SODIUM 40 MG VIAL IVPUSH SCH ×2 (09:41→21:29)
[2022-09-09] MEDS: INSULIN SLIDING SCALE (NOVOLOG) 1 VIAL SQ SCH ×4 (04:58→22:07)
[2022-09-09] MEDS: LACTULOSE 20 GM/30 ML UDC (FOR ORAL USE ONLY) PO SCH ×3 (05:06→22:06)
[2022-09-09] MEDS: ARTIFICIAL TEARS (POLYVINYL ALCOHOL) OPTH DROPS OU SCH ×3 (05:12→22:06)
[2022-09-09 06:07] LABS: ARTERIAL BLD GAS O2 SATURATION 96.6 % (95-98); ARTERIAL BLOOD GAS BASE EXCESS -0.1 mmol/L (-2-2); ARTERIAL BLOOD GAS pH 7.412 (7.350-7.450)
[2022-09-09 06:08] LABS: ALLENS TEST POSITIVE; VENT MODE A/C; VENT RATE 24
[2022-09-09] MEDS: INSULIN (LEVEMIR) 100 UNITS/ML UNITS SQ SCH ×2 (06:13→22:06)
[2022-09-09] MEDS: ALBUTEROL SO4 2.5/IPRATROPIUM 0.5 INH SOL 3 ML VIAL.NEB. NEB SCH ×4 (09:10→20:16)
[2022-09-09] MEDS: MEROPENEM 1 GM in DEXTROSE 5%-WATER 100 ML IVPB SCH ×2 (09:32→22:06)
[2022-09-09] MEDS: PANTOPRAZOLE SODIUM 40 MG VIAL IVPUSH SCH ×2 (09:33→22:06)
[2022-09-09] MEDS: RIFAXIMIN 550 MG TABLET PO SCH ×2 (09:41→22:06)
[2022-09-10] MEDS: LACTULOSE 20 GM/30 ML UDC (FOR ORAL USE ONLY) PO SCH ×3 (05:34→22:33)
[2022-09-10] MEDS: ARTIFICIAL TEARS (POLYVINYL ALCOHOL) OPTH DROPS OU SCH ×3 (05:34→22:44)
[2022-09-10] MEDS: INSULIN SLIDING SCALE (NOVOLOG) 1 VIAL SQ SCH ×4 (05:34→22:37)
[2022-09-10] MEDS: INSULIN (LEVEMIR) 100 UNITS/ML UNITS SQ SCH (06:23)
[2022-09-10] MEDS: ALBUTEROL SO4 2.5/IPRATROPIUM 0.5 INH SOL 3 ML VIAL.NEB. NEB SCH ×4 (08:40→20:00)
[2022-09-10] MEDS: MEROPENEM 1 GM in DEXTROSE 5%-WATER 100 ML IVPB SCH (09:17)
[2022-09-10] MEDS: PANTOPRAZOLE SODIUM 40 MG VIAL IVPUSH SCH ×2 (09:17→22:33)
[2022-09-10] MEDS: AMINO ACIDS/PROTEIN HYDROLYS 30 ML LIQUID.PKT PO SCH (09:17)
[2022-09-10] MEDS: RIFAXIMIN 550 MG TABLET PO SCH ×2 (09:42→22:47)
[2022-09-10] MEDS ORDERED: FLUTICASONE/UMECLIDIN/VILANTER(100-62.5-25 TRELEGY ELLIPTA) INAHLER IH SCH (10:00)
[2022-09-10 12:57] LABS: HEMATOCRIT 26.9 % (32.4-45.2); HEMOGLOBIN 8.5 GM/dL (10.7-15.3); MCH 31.1 pg (25.7-33.7); MCHC 31.6 g/dl (32.0-36.0); MEAN CELL VOLUME 98.7 fl (80-96); MEAN PLT VOLUME 13.8 fl (7.5-11.1); RBC 2.72 M/mm3 (3.60-5.2); RDW 25.3 % (11.6-15.6); WHITE BLOOD COUNT 7.4 K/mm3 (4.0-10.0)
[2022-09-10 13:20] LABS: PLATELET COUNT 27 10^3/uL (134-434)
[2022-09-10 13:23] LABS: ALBUMIN 1.8 g/dl (3.4-5.0); BLOOD UREA NITROGEN 56.9 mg/dL (7-18); CALCIUM 8.1 mg/dL (8.5-10.1); MAGNESIUM 1.9 mg/dL (1.8-2.4)
[2022-09-10 13:26] LABS: CREATININE 0.9 mg/dL (0.55-1.3); PHOSPHOROUS 3.5 mg/dL (2.5-4.9)
[2022-09-10 13:28] LABS: TOT PROT 4.9 g/dl (6.4-8.2)
[2022-09-10] MEDS ORDERED: DEXTROSE 50%-WATER 25 GM/50 ML DISP.SYRIN ONE (17:19)
[2022-09-10] MEDS ORDERED: DEXTROSE 50%-WATER - 25 GM/50 ML VIAL IVPUSH ONE (18:38)
[2022-09-11] MEDS: INSULIN SLIDING SCALE (NOVOLOG) 1 VIAL SQ SCH ×4 (05:42→22:26)
[2022-09-11] MEDS: ARTIFICIAL TEARS (POLYVINYL ALCOHOL) OPTH DROPS OU SCH ×3 (05:42→22:26)
[2022-09-11] MEDS: LACTULOSE 20 GM/30 ML UDC (FOR ORAL USE ONLY) PO SCH ×3 (05:43→22:26)
[2022-09-11] MEDS: AMINO ACIDS/PROTEIN HYDROLYS 30 ML LIQUID.PKT PO SCH (07:31)
[2022-09-11] MEDS ORDERED: SODIUM CHLORIDE 500 ML IV STA (07:44)
[2022-09-11 08:11] LABS: HEMATOCRIT 26.8 % (32.4-45.2); HEMOGLOBIN 8.5 GM/dL (10.7-15.3); MCH 31.6 pg (25.7-33.7); MCHC 31.8 g/dl (32.0-36.0); MEAN CELL VOLUME 99.3 fl (80-96); MEAN PLT VOLUME 10.5 fl (7.5-11.1); RDW 24.7 % (11.6-15.6); WHITE BLOOD COUNT 6.4 K/mm3 (4.0-10.0)
[2022-09-11 08:17] LABS: CALCIUM 7.8 mg/dL (8.5-10.1)
[2022-09-11 08:18] LABS: ALBUMIN 1.8 g/dl (3.4-5.0); BLOOD UREA NITROGEN 57.2 mg/dL (7-18); MAGNESIUM 1.8 mg/dL (1.8-2.4)
[2022-09-11] MEDS: ALBUTEROL SO4 2.5/IPRATROPIUM 0.5 INH SOL 3 ML VIAL.NEB. NEB SCH ×4 (08:20→20:41)
[2022-09-11 08:21] LABS: CREATININE 0.9 mg/dL (0.55-1.3); PHOSPHOROUS 3.5 mg/dL (2.5-4.9)
[2022-09-11 08:22] LABS: BILIRUBIN,TOTAL 2.3 mg/dL (0.2-1)
[2022-09-11] MEDS: PANTOPRAZOLE SODIUM 40 MG VIAL IVPUSH SCH ×2 (09:24→22:26)
[2022-09-11] MEDS: INSULIN (LEVEMIR) 100 UNITS/ML UNITS SQ SCH (09:24)
[2022-09-11] MEDS: methaDONE HCL 10 MG TABLET PO SCH (10:07)
[2022-09-11] MEDS: RIFAXIMIN 550 MG TABLET PO SCH ×2 (10:08→22:26)
[2022-09-11 10:10] LABS: PLATELET COUNT 14 10^3/uL (134-434)
[2022-09-11] MEDS: NYSTATIN POWDER 100,000 UNITS/GM - 15 GM TOPICAL POWDER TP SCH (16:58)
[2022-09-11] MEDS ORDERED: LORazepam 2 MG/ML SDV VIAL IVPUSH PRN (18:40)
[2022-09-12] MEDS ORDERED: SODIUM CHLORIDE 1,000 ML IV STA (00:56)
[2022-09-12] MEDS ORDERED: LACTATED RINGERS SOLUTION 1000 ML INFUS.BAG IV ONE ×2 (02:10→04:29)
[2022-09-12] MEDS ORDERED: ONDANSETRON 4 MG/2 ML VIAL IVPUSH ONE (02:53)
[2022-09-12] MEDS ORDERED: VANCOMYCIN/WATER 1250 MG 1,250 MG/250 ML BAG IVPB ONE (03:33)
[2022-09-12] MEDS ORDERED: VASOPRESSIN 20 UNITS/ML VIAL IV ONE (03:40)
[2022-09-12] MEDS ORDERED: VASOPRESSIN 40 UNITS/100 ML BAG IV SCH (03:45)
[2022-09-12] MEDS ORDERED: NACL IVPB SCH (03:45)
[2022-09-12] MEDS ORDERED: NOREPINEPHRINE IVPB SCH (03:45)
[2022-09-12] MEDS ORDERED: PIPERACILLIN/TAZOB 4.5 GM 4.5 GM in DEXTROSE 5%-WATER 100 ML IVPB SCH ×2 (03:45→04:00)
[2022-09-12] MEDS ORDERED: NOREPINEPHRINE BITARTRATE 16,000 MCG in SODIUM CHLORIDE 484 ML IV SCH (05:30)
[2022-09-12] MEDS: INSULIN SLIDING SCALE (NOVOLOG) 1 VIAL SQ SCH ×4 (06:01→22:05)
[2022-09-12] MEDS: ARTIFICIAL TEARS (POLYVINYL ALCOHOL) OPTH DROPS OU SCH ×3 (06:07→22:04)
[2022-09-12] MEDS: methaDONE HCL 10 MG TABLET PO SCH ×2 (06:08→08:47)
[2022-09-12] MEDS: LACTULOSE 20 GM/30 ML UDC (FOR ORAL USE ONLY) PO SCH ×4 (06:08→22:03)
[2022-09-12] MEDS: AMINO ACIDS/PROTEIN HYDROLYS 30 ML LIQUID.PKT PO SCH ×2 (07:39→08:48)
[2022-09-12] MEDS: ALBUTEROL SO4 2.5/IPRATROPIUM 0.5 INH SOL 3 ML VIAL.NEB. NEB SCH ×4 (07:52→20:30)
[2022-09-12 08:11] LABS: HEMATOCRIT 18.6 % (32.4-45.2); MEAN CELL VOLUME 100.1 fl (80-96); MEAN PLT VOLUME 11.4 fl (7.5-11.1); RBC 1.86 M/mm3 (3.60-5.2); RDW 24.2 % (11.6-15.6); WHITE BLOOD COUNT 2.6 K/mm3 (4.0-10.0)
[2022-09-12 08:20] LABS: ALBUMIN 1.4 g/dl (3.4-5.0); BLOOD UREA NITROGEN 54.2 mg/dL (7-18); CALCIUM 7.1 mg/dL (8.5-10.1); MAGNESIUM 1.6 mg/dL (1.8-2.4)
[2022-09-12 08:23] LABS: CREATININE 0.9 mg/dL (0.55-1.3); PHOSPHOROUS 4.9 mg/dL (2.5-4.9)
[2022-09-12 08:24] LABS: HEMOGLOBIN 5.8 GM/dL (10.7-15.3); PLATELET COUNT 16 10^3/uL (134-434)
[2022-09-12 08:25] LABS: BILIRUBIN,TOTAL 2.3 mg/dL (0.2-1); TOT PROT 3.9 g/dl (6.4-8.2)
[2022-09-12] MEDS ORDERED: MAGNESIUM SULF 50% (8.12 MEQ/2 ML-1 GM VIAL) IVPB ONE (08:33)
[2022-09-12] MEDS ORDERED: FUROSEMIDE 40 MG/4 ML INJECTABLE VIAL IVPUSH ONE ×2 (09:17→17:00)
[2022-09-12] MEDS: NOREPINEPHRINE BITARTRATE/D5W 8 MG/250 ML BAG IVPB SCH (09:54)
[2022-09-12] MEDS ORDERED: ALBUMIN HUMAN 25% 12.5 GM/50 ML VIAL IV SCH (10:00)
[2022-09-12] MEDS ORDERED: SULFAMETHOXAZOLE 80 MG/TRIMETHOPRIM 16 MG/ML VIAL IVPB SCH (10:00)
[2022-09-12] MEDS: NYSTATIN POWDER 100,000 UNITS/GM - 15 GM TOPICAL POWDER TP SCH (10:33)
[2022-09-12] MEDS: MUPIROCIN 2% TOPICAL OINTMENT FOR DECOLONIZATION NS SCH ×2 (10:33→22:04)
[2022-09-12] MEDS: PANTOPRAZOLE SODIUM 40 MG VIAL IVPUSH SCH ×2 (10:33→22:03)
[2022-09-12] MEDS: RIFAXIMIN 550 MG TABLET PO SCH ×2 (10:33→22:04)
[2022-09-12] MEDS: INSULIN (LEVEMIR) 100 UNITS/ML UNITS SQ SCH (10:33)
[2022-09-12] MEDS: VASOPRESSIN 40 UNITS/100 ML BAG IV SCH (11:46)
[2022-09-12 12:01] LABS: BASO % 0.1 % (0-2.0); EOS % 0.1 % (0-4.5); HEMATOCRIT 19.6 % (32.4-45.2); LYMPH % 3.3 % (8-40); MCH 31.1 pg (25.7-33.7); MCHC 30.7 g/dl (32.0-36.0); MEAN CELL VOLUME 101.2 fl (80-96); MEAN PLT VOLUME 11.3 fl (7.5-11.1); MONO % 7.4 % (3.8-10.2); NEUT % 89.1 % (42.8-82.8); RBC 1.93 M/mm3 (3.60-5.2); RDW 24.7 % (11.6-15.6); WHITE BLOOD COUNT 2.3 K/mm3 (4.0-10.0)
[2022-09-12 12:05] LABS: PLATELET COUNT 19 10^3/uL (134-434)
[2022-09-12 12:42] LABS: ANISOCYTOSIS 1+; MACROCYTOSIS 1+
[2022-09-12] MEDS ORDERED: ACETAMINOPHEN 1000 MG/100 ML BAG IVPB ONE (14:49)
[2022-09-12] MEDS ORDERED: VANCOMYCIN 1 GM in D5W (PRE-DOCKED) 1,000 MG/250 ML IVPB SCH (15:00)
[2022-09-12] MEDS ORDERED: MAGNESIUM SULFATE IN WATER 2 GM/50 ML IVPB IVPB ONE (17:11)
[2022-09-12] MEDS ORDERED: ALBUMIN HUMAN 25% 12.5 GM/50 ML VIAL IV ONE (17:20)
[2022-09-12 21:12] LABS: BASO % 0.2 % (0-2.0); EOS % 0.2 % (0-4.5); HEMATOCRIT 22.5 % (32.4-45.2); HEMOGLOBIN 7.3 GM/dL (10.7-15.3); LYMPH % 3.3 % (8-40); MCH 30.2 pg (25.7-33.7); MCHC 32.3 g/dl (32.0-36.0); MEAN CELL VOLUME 93.5 fl (80-96); MEAN PLT VOLUME 11.7 fl (7.5-11.1); MONO % 9.8 % (3.8-10.2); NEUT % 86.5 % (42.8-82.8); RBC 2.41 M/mm3 (3.60-5.2); RDW 23.7 % (11.6-15.6); WHITE BLOOD COUNT 3.9 K/mm3 (4.0-10.0)
[2022-09-12] MEDS: CHLORHEXIDINE GLUCONATE 4% CLEANSER FOR DECOLONIZATION TP SCH (22:04)
[2022-09-12 22:21] LABS: PLATELET COUNT 25 10^3/uL (134-434)
[2022-09-13] MEDS: INSULIN SLIDING SCALE (NOVOLOG) 1 VIAL SQ SCH ×4 (04:43→22:49)
[2022-09-13] MEDS: LACTULOSE 20 GM/30 ML UDC (FOR ORAL USE ONLY) PO SCH ×3 (05:49→21:32)
[2022-09-13] MEDS: VASOPRESSIN 40 UNITS/100 ML BAG IV SCH ×2 (05:49→12:06)
[2022-09-13] MEDS: methaDONE HCL 10 MG TABLET PO SCH (05:49)
[2022-09-13] MEDS: NOREPINEPHRINE BITARTRATE/D5W 8 MG/250 ML BAG IVPB SCH (05:49)
[2022-09-13 06:37] LABS: ARTERIAL BLD GAS O2 SATURATION 97.1 % (95-98); ARTERIAL BLOOD GAS BASE EXCESS 1.3 mmol/L (-2-2); ARTERIAL BLOOD GAS PO2 93.5 mmHg (80-100); ARTERIAL BLOOD GAS pH 7.395 (7.350-7.450)
[2022-09-13] MEDS: ARTIFICIAL TEARS (POLYVINYL ALCOHOL) OPTH DROPS OU SCH ×3 (06:45→21:32)
[2022-09-13 06:47] LABS: ALLENS TEST POSITIVE; VENT MODE A/C; VENT RATE 20
[2022-09-13 08:16] LABS: BASO % 0.1 % (0-2.0); EOS % 0.3 % (0-4.5); HEMATOCRIT 22.9 % (32.4-45.2); HEMOGLOBIN 7.4 GM/dL (10.7-15.3); LYMPH % 3.1 % (8-40); MCH 30.4 pg (25.7-33.7); MCHC 32.6 g/dl (32.0-36.0); MEAN CELL VOLUME 93.2 fl (80-96); MEAN PLT VOLUME 12.1 fl (7.5-11.1); MONO % 9.1 % (3.8-10.2); NEUT % 87.4 % (42.8-82.8); RBC 2.45 M/mm3 (3.60-5.2); RDW 24.3 % (11.6-15.6); WHITE BLOOD COUNT 6.4 K/mm3 (4.0-10.0)
[2022-09-13 08:19] LABS: INR 1.41 (0.83-1.09); PROTHROMBIN TIME (PATIENT) 16.3 SEC (9.7-13.0)
[2022-09-13 08:21] LABS: ACTIVATED PTT 30.2 SECONDS (25.2-36.5)
[2022-09-13 08:26] LABS: PLATELET COUNT 31 10^3/uL (134-434)
[2022-09-13] MEDS: ACETAMINOPHEN 1000 MG/100 ML BAG IVPB PRN ×2 (08:30→18:44)
[2022-09-13 08:41] LABS: BLOOD UREA NITROGEN 50.8 mg/dL (7-18)
[2022-09-13 08:44] LABS: TOT PROT 5.2 g/dl (6.4-8.2)
[2022-09-13 08:46] LABS: BILIRUBIN,TOTAL 2.7 mg/dL (0.2-1)
[2022-09-13 08:48] LABS: ALBUMIN 2.5 g/dl (3.4-5.0); CALCIUM 8.3 mg/dL (8.5-10.1)
[2022-09-13] MEDS ORDERED: POTASSIUM CHLORIDE ORAL LIQUID 20 MEQ/15 ML PO ONE (09:10)
[2022-09-13] MEDS: ALBUTEROL SO4 2.5/IPRATROPIUM 0.5 INH SOL 3 ML VIAL.NEB. NEB SCH ×3 (09:30→20:30)
[2022-09-13] MEDS: INSULIN (LEVEMIR) 100 UNITS/ML UNITS SQ SCH (09:34)
[2022-09-13] MEDS: NYSTATIN POWDER 100,000 UNITS/GM - 15 GM TOPICAL POWDER TP SCH (09:34)
[2022-09-13] MEDS: PANTOPRAZOLE SODIUM 40 MG VIAL IVPUSH SCH ×2 (09:34→21:33)
[2022-09-13] MEDS: MUPIROCIN 2% TOPICAL OINTMENT FOR DECOLONIZATION NS SCH ×2 (09:34→21:32)
[2022-09-13] MEDS: AMINO ACIDS/PROTEIN HYDROLYS 30 ML LIQUID.PKT PO SCH (09:35)
[2022-09-13] MEDS: RIFAXIMIN 550 MG TABLET PO SCH ×2 (09:35→21:34)
[2022-09-13] MEDS ORDERED: POTASSIUM CHLORIDE 20 MEQ PREMIX IVPB 100 ML IVPB ONE (10:00)
[2022-09-13] MEDS ORDERED: POTASSIUM CHLORIDE 20 MEQ PREMIX IVPB 100 ML IVPB SCH (17:30)
[2022-09-13] MEDS: KCL 10 MEQ IVPB 10 MEQ/100 ML INFUS.BAG IVPB SCH ×2 (18:08→19:41)
[2022-09-13] MEDS: CHLORHEXIDINE GLUCONATE 4% CLEANSER FOR DECOLONIZATION TP SCH (21:33)
[2022-09-14] MEDS: methaDONE HCL 10 MG TABLET PO SCH (05:04)
[2022-09-14] MEDS: LACTULOSE 20 GM/30 ML UDC (FOR ORAL USE ONLY) PO SCH ×3 (05:04→21:39)
[2022-09-14] MEDS: ARTIFICIAL TEARS (POLYVINYL ALCOHOL) OPTH DROPS OU SCH ×3 (05:05→21:39)
[2022-09-14] MEDS: INSULIN SLIDING SCALE (NOVOLOG) 1 VIAL SQ SCH ×4 (06:20→21:49)
[2022-09-14] MEDS ORDERED: LORazepam 2 MG/ML SDV VIAL IVPUSH PRN (06:40)
[2022-09-14] MEDS ORDERED: BISACODYL 5 MG TABLET.DR (FP) PO PRN (06:40)
[2022-09-14] MEDS: NOREPINEPHRINE BITARTRATE/D5W 8 MG/250 ML BAG IVPB SCH (07:15)
[2022-09-14] MEDS: ALBUTEROL SO4 2.5/IPRATROPIUM 0.5 INH SOL 3 ML VIAL.NEB. NEB SCH ×4 (07:43→20:26)
[2022-09-14 08:22] LABS: INR 1.58 (0.83-1.09); PROTHROMBIN TIME (PATIENT) 18.2 SEC (9.7-13.0)
[2022-09-14 08:23] LABS: ACTIVATED PTT 32.9 SECONDS (25.2-36.5)
[2022-09-14 08:31] LABS: BASO % 0.2 % (0-2.0); EOS % 0.2 % (0-4.5); HEMOGLOBIN 7.1 GM/dL (10.7-15.3); LYMPH % 3.6 % (8-40); MCH 30.9 pg (25.7-33.7); MCHC 32.5 g/dl (32.0-36.0); MEAN CELL VOLUME 94.9 fl (80-96); MEAN PLT VOLUME 12.1 fl (7.5-11.1); MONO % 7.7 % (3.8-10.2); NEUT % 88.3 % (42.8-82.8); RBC 2.31 M/mm3 (3.60-5.2); RDW 24.5 % (11.6-15.6); WHITE BLOOD COUNT 4.4 K/mm3 (4.0-10.0)
[2022-09-14 08:35] LABS: CALCIUM 7.9 mg/dL (8.5-10.1)
[2022-09-14 08:36] LABS: ALBUMIN 2.1 g/dl (3.4-5.0); BLOOD UREA NITROGEN 46.3 mg/dL (7-18)
[2022-09-14 08:39] LABS: CREATININE 0.9 mg/dL (0.55-1.3)
[2022-09-14 08:41] LABS: BILIRUBIN,TOTAL 2.3 mg/dL (0.2-1); TOT PROT 4.8 g/dl (6.4-8.2)
[2022-09-14 08:50] LABS: PLATELET COUNT 27 10^3/uL (134-434)
[2022-09-14] MEDS: MUPIROCIN 2% TOPICAL OINTMENT FOR DECOLONIZATION NS SCH ×2 (09:52→21:39)
[2022-09-14] MEDS: INSULIN (LEVEMIR) 100 UNITS/ML UNITS SQ SCH (09:52)
[2022-09-14] MEDS: NYSTATIN POWDER 100,000 UNITS/GM - 15 GM TOPICAL POWDER TP SCH (09:52)
[2022-09-14] MEDS: PANTOPRAZOLE SODIUM 40 MG VIAL IVPUSH SCH ×2 (09:52→21:39)
[2022-09-14] MEDS: RIFAXIMIN 550 MG TABLET PO SCH ×2 (09:52→21:39)
[2022-09-14] MEDS: AMINO ACIDS/PROTEIN HYDROLYS 30 ML LIQUID.PKT PO SCH (09:52)
[2022-09-14] MEDS ORDERED: FLUTICASONE/UMECLIDIN/VILANTER(100-62.5-25 TRELEGY ELLIPTA) INAHLER IH SCH (10:00)
[2022-09-14] MEDS: ACETAMINOPHEN 650 MG/20.3 ML ORAL SOLUTION (CUPS) PO PRN (16:23)
[2022-09-14] MEDS: CHLORHEXIDINE GLUCONATE 4% CLEANSER FOR DECOLONIZATION TP SCH (21:39)
[2022-09-15] MEDS: methaDONE HCL 10 MG TABLET PO SCH (05:51)
[2022-09-15] MEDS: LACTULOSE 20 GM/30 ML UDC (FOR ORAL USE ONLY) PO SCH ×3 (05:51→21:18)
[2022-09-15] MEDS: INSULIN SLIDING SCALE (NOVOLOG) 1 VIAL SQ SCH ×4 (05:52→23:26)
[2022-09-15] MEDS: ARTIFICIAL TEARS (POLYVINYL ALCOHOL) OPTH DROPS OU SCH ×3 (07:27→21:17)
[2022-09-15 07:40] LABS: BASO % 0.4 % (0-2.0); EOS % 0.2 % (0-4.5); LYMPH % 4.9 % (8-40); MCH 30.5 pg (25.7-33.7); MCHC 31.5 g/dl (32.0-36.0); MEAN CELL VOLUME 96.8 fl (80-96); MEAN PLT VOLUME 10.6 fl (7.5-11.1); MONO % 6.5 % (3.8-10.2); RBC 2.28 M/mm3 (3.60-5.2); RDW 24.6 % (11.6-15.6)
[2022-09-15 07:42] LABS: HEMOGLOBIN 6.9 GM/dL (10.7-15.3)
[2022-09-15 07:43] LABS: PLATELET COUNT 19 10^3/uL (134-434)
[2022-09-15 08:00] LABS: INR 1.52 (0.83-1.09); PROTHROMBIN TIME (PATIENT) 17.5 SEC (9.7-13.0)
[2022-09-15 08:01] LABS: CHLORIDE 113 mmol/L (98-107); SODIUM 150 mmol/L (136-145)
[2022-09-15 08:03] LABS: ACTIVATED PTT 33.8 SECONDS (25.2-36.5); CALCIUM 7.8 mg/dL (8.5-10.1)
[2022-09-15 08:04] LABS: ALBUMIN 1.8 g/dl (3.4-5.0); BLOOD UREA NITROGEN 39.2 mg/dL (7-18); CO2 27 mmol/L (21-32); GLUCOSE,RANDOM 131 mg/dL (74-106)
[2022-09-15 08:07] LABS: CREATININE 0.8 mg/dL (0.55-1.3); SGOT/AST 14 U/L (15-37); SGPT/ALT 26 U/L (13-61)
[2022-09-15 08:08] LABS: BILIRUBIN,TOTAL 1.6 mg/dL (0.2-1); TOT PROT 4.6 g/dl (6.4-8.2)
[2022-09-15 08:10] LABS: ALK PHOS 131 U/L (45-117)
[2022-09-15 08:13] LABS: ANION GAP 10 MMOL/L (8-16)
[2022-09-15] MEDS: ALBUTEROL SO4 2.5/IPRATROPIUM 0.5 INH SOL 3 ML VIAL.NEB. NEB SCH ×4 (08:32→20:05)
[2022-09-15] MEDS: AMINO ACIDS/PROTEIN HYDROLYS 30 ML LIQUID.PKT PO SCH (08:50)
[2022-09-15] MEDS: KCL 10 MEQ IVPB 10 MEQ/100 ML INFUS.BAG IVPB SCH ×3 (08:50→11:07)
[2022-09-15] MEDS: MUPIROCIN 2% TOPICAL OINTMENT FOR DECOLONIZATION NS SCH ×2 (09:56→21:18)
[2022-09-15] MEDS: INSULIN (LEVEMIR) 100 UNITS/ML UNITS SQ SCH (09:56)
[2022-09-15] MEDS: NYSTATIN POWDER 100,000 UNITS/GM - 15 GM TOPICAL POWDER TP SCH (09:57)
[2022-09-15] MEDS: PANTOPRAZOLE SODIUM 40 MG VIAL IVPUSH SCH ×2 (09:57→21:18)
[2022-09-15] MEDS: RIFAXIMIN 550 MG TABLET PO SCH ×2 (09:57→21:18)
[2022-09-15 10:03] LABS: MAGNESIUM 1.7 mg/dL (1.8-2.4)
[2022-09-15 10:06] LABS: PHOSPHOROUS 3.1 mg/dL (2.5-4.9)
[2022-09-15] MEDS: ACETAMINOPHEN 650 MG/20.3 ML ORAL SOLUTION (CUPS) PO PRN (10:18)
[2022-09-15] MEDS ORDERED: POTASSIUM CHLORIDE ORAL LIQUID 20 MEQ/15 ML PO ONE (10:45)
[2022-09-15] MEDS ORDERED: MAGNESIUM SULF 50% (8.12 MEQ/2 ML-1 GM VIAL) IVPB ONE (10:45)
[2022-09-15 16:39] LABS: BLOOD UREA NITROGEN 41.1 mg/dL (7-18); CALCIUM 7.8 mg/dL (8.5-10.1)
[2022-09-15 16:42] LABS: CREATININE 0.8 mg/dL (0.55-1.3)
[2022-09-15 16:47] LABS: HEMATOCRIT 26.1 % (32.4-45.2); HEMOGLOBIN 8.4 GM/dL (10.7-15.3); MCH 31.3 pg (25.7-33.7); MCHC 32.1 g/dl (32.0-36.0); MEAN CELL VOLUME 97.3 fl (80-96); MEAN PLT VOLUME 10.2 fl (7.5-11.1); RBC 2.68 M/mm3 (3.60-5.2); RDW 23.5 % (11.6-15.6); WHITE BLOOD COUNT 5.6 K/mm3 (4.0-10.0)
[2022-09-15] MEDS ORDERED: LACTATED RINGERS SOLUTION 1000 ML INFUS.BAG IV ONE (17:13)
[2022-09-15 17:28] LABS: PLATELET COUNT 19 10^3/uL (134-434)
[2022-09-15 20:25] LABS: ANISOCYTOSIS 2+; MACROCYTOSIS 1+; OVALOCYTE 2+; TEAR DROP CELLS 1+
[2022-09-15] MEDS: CHLORHEXIDINE GLUCONATE 4% CLEANSER FOR DECOLONIZATION TP SCH (21:18)
[2022-09-16] MEDS ORDERED: LACTATED RINGERS SOLUTION 1000 ML INFUS.BAG IV ONE (01:30)
[2022-09-16] MEDS ORDERED: ALBUMIN HUMAN 5% 250 ML IV SOLUTION IV ONE (02:03)
[2022-09-16] MEDS: INSULIN SLIDING SCALE (NOVOLOG) 1 VIAL SQ SCH ×4 (04:16→23:44)
[2022-09-16] MEDS: LACTULOSE 20 GM/30 ML UDC (FOR ORAL USE ONLY) PO SCH ×2 (06:07→21:47)
[2022-09-16] MEDS: methaDONE HCL 10 MG TABLET PO SCH (06:07)
[2022-09-16] MEDS: ARTIFICIAL TEARS (POLYVINYL ALCOHOL) OPTH DROPS OU SCH ×3 (06:08→21:47)
[2022-09-16 08:00] LABS: HEMATOCRIT 23.8 % (32.4-45.2); HEMOGLOBIN 7.7 GM/dL (10.7-15.3); MCH 31.1 pg (25.7-33.7); MCHC 32.3 g/dl (32.0-36.0); MEAN CELL VOLUME 96.3 fl (80-96); MEAN PLT VOLUME 10.6 fl (7.5-11.1); RBC 2.47 M/mm3 (3.60-5.2); RDW 22.7 % (11.6-15.6); WHITE BLOOD COUNT 4.9 K/mm3 (4.0-10.0)
[2022-09-16 08:10] LABS: INR 1.47 (0.83-1.09)
[2022-09-16] MEDS: ALBUTEROL SO4 2.5/IPRATROPIUM 0.5 INH SOL 3 ML VIAL.NEB. NEB SCH ×4 (08:10→20:05)
[2022-09-16 08:13] LABS: ACTIVATED PTT 34.1 SECONDS (25.2-36.5)
[2022-09-16 08:17] LABS: PLATELET COUNT 16 10^3/uL (134-434)
[2022-09-16 08:32] LABS: ALBUMIN 1.9 g/dl (3.4-5.0); BLOOD UREA NITROGEN 41.1 mg/dL (7-18); CALCIUM 7.9 mg/dL (8.5-10.1)
[2022-09-16 08:33] LABS: MAGNESIUM 1.9 mg/dL (1.8-2.4)
[2022-09-16 08:35] LABS: CREATININE 0.7 mg/dL (0.55-1.3)
[2022-09-16 08:37] LABS: BILIRUBIN,TOTAL 2.2 mg/dL (0.2-1); TOT PROT 4.6 g/dl (6.4-8.2)
[2022-09-16] MEDS: RIFAXIMIN 550 MG TABLET PO SCH ×2 (09:30→21:47)
[2022-09-16] MEDS: PANTOPRAZOLE SODIUM 40 MG VIAL IVPUSH SCH ×2 (09:30→21:47)
[2022-09-16] MEDS: AMINO ACIDS/PROTEIN HYDROLYS 30 ML LIQUID.PKT PO SCH (09:31)
[2022-09-16] MEDS: MUPIROCIN 2% TOPICAL OINTMENT FOR DECOLONIZATION NS SCH ×2 (09:31→21:47)
[2022-09-16 10:02] LABS: ANISOCYTOSIS 1+; MACROCYTOSIS 1+
[2022-09-16] MEDS: INSULIN (LEVEMIR) 100 UNITS/ML UNITS SQ SCH (12:11)
[2022-09-16] MEDS: NYSTATIN POWDER 100,000 UNITS/GM - 15 GM TOPICAL POWDER TP SCH (12:36)
[2022-09-16] MEDS: COLLAGENASE CLOSTRIDIUM HIST. 30 GRAMS TUBE TP SCH (17:20)
[2022-09-16] MEDS ORDERED: MIDODRINE HCL 5 MG TABLET PO SCH ×2 (18:00)
[2022-09-16] MEDS: ACETAMINOPHEN 650 MG/20.3 ML ORAL SOLUTION (CUPS) PO PRN (21:47)
[2022-09-16] MEDS: CHLORHEXIDINE GLUCONATE 4% CLEANSER FOR DECOLONIZATION TP SCH (21:47)
[2022-09-17] MEDS: INSULIN SLIDING SCALE (NOVOLOG) 1 VIAL SQ SCH ×4 (05:28→22:05)
[2022-09-17] MEDS: ARTIFICIAL TEARS (POLYVINYL ALCOHOL) OPTH DROPS OU SCH ×3 (06:18→21:20)
[2022-09-17] MEDS: methaDONE HCL 10 MG TABLET PO SCH (06:21)
[2022-09-17 07:03] LABS: HEMATOCRIT 24.7 % (32.4-45.2); HEMOGLOBIN 7.9 GM/dL (10.7-15.3); MCH 31.1 pg (25.7-33.7); MCHC 32.1 g/dl (32.0-36.0); MEAN PLT VOLUME 10.6 fl (7.5-11.1); RBC 2.54 M/mm3 (3.60-5.2); RDW 22.8 % (11.6-15.6); WHITE BLOOD COUNT 4.4 K/mm3 (4.0-10.0)
[2022-09-17 07:10] LABS: INR 1.43 (0.83-1.09); PROTHROMBIN TIME (PATIENT) 16.5 SEC (9.7-13.0)
[2022-09-17 07:11] LABS: PLATELET COUNT 15 10^3/uL (134-434)
[2022-09-17 07:13] LABS: ACTIVATED PTT 35.2 SECONDS (25.2-36.5)
[2022-09-17] MEDS: ALBUTEROL SO4 2.5/IPRATROPIUM 0.5 INH SOL 3 ML VIAL.NEB. NEB SCH ×4 (07:53→20:40)
[2022-09-17 07:57] LABS: BLOOD UREA NITROGEN 42.7 mg/dL (7-18); CALCIUM 8.6 mg/dL (8.5-10.1); MAGNESIUM 2.1 mg/dL (1.8-2.4)
[2022-09-17 07:58] LABS: ALBUMIN 1.8 g/dl (3.4-5.0)
[2022-09-17 08:01] LABS: CREATININE 0.6 mg/dL (0.55-1.3); PHOSPHOROUS 3.2 mg/dL (2.5-4.9)
[2022-09-17 08:02] LABS: TOT PROT 4.7 g/dl (6.4-8.2)
[2022-09-17] MEDS ORDERED: SODIUM CHLORIDE 500 ML IV STA (08:16)
[2022-09-17] MEDS: MIDODRINE HCL 5 MG TABLET PO SCH ×4 (09:01→16:59)
[2022-09-17] MEDS ORDERED: LACTATED RINGERS SOLUTION 1000 ML INFUS.BAG IV ONE (09:26)
[2022-09-17] MEDS ORDERED: DEXTROSE 5%-0.45% SALINE 1,000 ML IV SCH ×2 (09:30→11:00)
[2022-09-17] MEDS: AMINO ACIDS/PROTEIN HYDROLYS 30 ML LIQUID.PKT PO SCH (09:51)
[2022-09-17] MEDS: PANTOPRAZOLE SODIUM 40 MG VIAL IVPUSH SCH ×2 (09:51→21:21)
[2022-09-17] MEDS: LACTULOSE 20 GM/30 ML UDC (FOR ORAL USE ONLY) PO SCH ×2 (09:51→21:21)
[2022-09-17] MEDS: COLLAGENASE CLOSTRIDIUM HIST. 30 GRAMS TUBE TP SCH (09:52)
[2022-09-17] MEDS: NYSTATIN POWDER 100,000 UNITS/GM - 15 GM TOPICAL POWDER TP SCH (09:52)
[2022-09-17] MEDS: RIFAXIMIN 550 MG TABLET PO SCH ×2 (09:52→21:21)
[2022-09-17] MEDS ORDERED: LACTATED RINGERS SOLUTION 500 ML IV ONE (10:00)
[2022-09-17 10:08] LABS: ANISOCYTOSIS 2+; MACROCYTOSIS 1+
[2022-09-17] MEDS: INSULIN (LEVEMIR) 100 UNITS/ML UNITS SQ SCH (10:20)
[2022-09-17] MEDS ORDERED: ONDANSETRON 4 MG/2 ML VIAL IVPUSH ONE (13:00)
[2022-09-17] MEDS: POTASSIUM CHLORIDE 20 MEQ in DEXTROSE 5%-WATER - 1,000 ML IV SCH (15:44)
[2022-09-17] MEDS: MUPIROCIN CA 2% TOPICAL CREAM 15 GM TUBE TP SCH (21:21)
[2022-09-17] MEDS: CHLORHEXIDINE GLUCONATE 4% CLEANSER FOR DECOLONIZATION TP SCH (21:21)
[2022-09-17] MEDS: ACETAMINOPHEN 650 MG/20.3 ML ORAL SOLUTION (CUPS) PO PRN (21:22)
[2022-09-18] MEDS: POTASSIUM CHLORIDE 20 MEQ in DEXTROSE 5%-WATER - 1,000 ML IV SCH (04:06)
[2022-09-18] MEDS: INSULIN SLIDING SCALE (NOVOLOG) 1 VIAL SQ SCH ×4 (04:34→22:54)
[2022-09-18] MEDS: methaDONE HCL 10 MG TABLET PO SCH (05:02)
[2022-09-18] MEDS: ARTIFICIAL TEARS (POLYVINYL ALCOHOL) OPTH DROPS OU SCH ×3 (05:14→22:54)
[2022-09-18 08:18] LABS: HEMATOCRIT 23.9 % (32.4-45.2); HEMOGLOBIN 7.6 GM/dL (10.7-15.3); MCHC 31.8 g/dl (32.0-36.0); MEAN CELL VOLUME 97.5 fl (80-96); RBC 2.46 M/mm3 (3.60-5.2); RDW 22.6 % (11.6-15.6); WHITE BLOOD COUNT 5.2 K/mm3 (4.0-10.0)
[2022-09-18 08:20] LABS: INR 1.47 (0.83-1.09)
[2022-09-18 08:23] LABS: ACTIVATED PTT 35.4 SECONDS (25.2-36.5)
[2022-09-18] MEDS: ALBUTEROL SO4 2.5/IPRATROPIUM 0.5 INH SOL 3 ML VIAL.NEB. NEB SCH ×4 (08:30→20:35)
[2022-09-18 08:32] LABS: MEAN PLT VOLUME 10.4 fl (7.5-11.1)
[2022-09-18 08:34] LABS: ALBUMIN 1.6 g/dl (3.4-5.0); MAGNESIUM 1.8 mg/dL (1.8-2.4)
[2022-09-18 08:37] LABS: CREATININE 0.7 mg/dL (0.55-1.3); PHOSPHOROUS 2.4 mg/dL (2.5-4.9)
[2022-09-18 08:39] LABS: BILIRUBIN,TOTAL 1.6 mg/dL (0.2-1); TOT PROT 4.6 g/dl (6.4-8.2)
[2022-09-18 09:01] LABS: ANISOCYTOSIS 1+; MACROCYTOSIS 1+
[2022-09-18] MEDS: RIFAXIMIN 550 MG TABLET PO SCH ×2 (09:03→22:54)
[2022-09-18] MEDS: LACTULOSE 20 GM/30 ML UDC (FOR ORAL USE ONLY) PO SCH ×2 (09:03→22:54)
[2022-09-18] MEDS: MIDODRINE HCL 5 MG TABLET PO SCH ×3 (09:03→17:02)
[2022-09-18] MEDS: AMINO ACIDS/PROTEIN HYDROLYS 30 ML LIQUID.PKT PO SCH ×2 (09:03→17:11)
[2022-09-18] MEDS: NYSTATIN POWDER 100,000 UNITS/GM - 15 GM TOPICAL POWDER TP SCH (09:08)
[2022-09-18] MEDS: PANTOPRAZOLE SODIUM 40 MG VIAL IVPUSH SCH ×2 (09:08→22:54)
[2022-09-18] MEDS: COLLAGENASE CLOSTRIDIUM HIST. 30 GRAMS TUBE TP SCH (09:08)
[2022-09-18] MEDS: MUPIROCIN CA 2% TOPICAL CREAM 15 GM TUBE TP SCH ×2 (09:08→22:54)
[2022-09-18] MEDS ORDERED: COD LIVER OIL/ZINC OXIDE PASTE 56 GM TUBE TP PRN (09:45)
[2022-09-18] MEDS: INSULIN (LEVEMIR) 100 UNITS/ML UNITS SQ SCH (10:16)
[2022-09-18] MEDS ORDERED: ONDANSETRON 4 MG/2 ML VIAL IVPUSH ONE (11:24)
[2022-09-18 12:18] LABS: PLATELET COUNT 12 10^3/uL (134-434)
[2022-09-18] MEDS ORDERED: NAPH,MB-DB/K PH,MBDB POWDER PACKET PO ONE (14:45)
[2022-09-18] MEDS: CHLORHEXIDINE GLUCONATE 4% CLEANSER FOR DECOLONIZATION TP SCH (22:54)
[2022-09-19] MEDS: ARTIFICIAL TEARS (POLYVINYL ALCOHOL) OPTH DROPS OU SCH ×3 (05:37→21:55)
[2022-09-19] MEDS: INSULIN SLIDING SCALE (NOVOLOG) 1 VIAL SQ SCH ×4 (05:37→21:52)
[2022-09-19 08:00] LABS: INR 1.54 (0.83-1.09); PROTHROMBIN TIME (PATIENT) 17.8 SEC (9.7-13.0)
[2022-09-19 08:03] LABS: ACTIVATED PTT 38.1 SECONDS (25.2-36.5)
[2022-09-19 08:17] LABS: BASO % 0.2 % (0-2.0); EOS % 0.4 % (0-4.5); HEMATOCRIT 24.3 % (32.4-45.2); HEMOGLOBIN 7.8 GM/dL (10.7-15.3); LYMPH % 4.5 % (8-40); MCH 31.2 pg (25.7-33.7); MCHC 32.2 g/dl (32.0-36.0); MEAN CELL VOLUME 96.8 fl (80-96); MEAN PLT VOLUME 11.1 fl (7.5-11.1); MONO % 4.3 % (3.8-10.2); NEUT % 90.6 % (42.8-82.8); RBC 2.51 M/mm3 (3.60-5.2); RDW 22.2 % (11.6-15.6); WHITE BLOOD COUNT 5.1 K/mm3 (4.0-10.0)
[2022-09-19 08:30] LABS: CALCIUM 8.2 mg/dL (8.5-10.1)
[2022-09-19 08:31] LABS: ALBUMIN 1.6 g/dl (3.4-5.0); BLOOD UREA NITROGEN 35.6 mg/dL (7-18); MAGNESIUM 1.7 mg/dL (1.8-2.4)
[2022-09-19 08:32] LABS: CREATININE 0.5 mg/dL (0.55-1.3); PHOSPHOROUS 2.6 mg/dL (2.5-4.9)
[2022-09-19 08:35] LABS: TOT PROT 4.5 g/dl (6.4-8.2)
[2022-09-19 08:36] LABS: BILIRUBIN,TOTAL 1.9 mg/dL (0.2-1)
[2022-09-19] MEDS: AMINO ACIDS/PROTEIN HYDROLYS 30 ML LIQUID.PKT PO SCH ×2 (08:38→18:18)
[2022-09-19 08:43] LABS: PLATELET COUNT 9 10^3/uL (134-434)
[2022-09-19 08:54] LABS: ANISOCYTOSIS 1+; MACROCYTOSIS 1+
[2022-09-19] MEDS: ACETAMINOPHEN 650 MG/20.3 ML ORAL SOLUTION (CUPS) PO PRN (10:39)
[2022-09-19] MEDS: LACTULOSE 20 GM/30 ML UDC (FOR ORAL USE ONLY) PO SCH ×2 (10:40→21:49)
[2022-09-19] MEDS: MIDODRINE HCL 5 MG TABLET PO SCH ×3 (10:41→18:18)
[2022-09-19] MEDS: PANTOPRAZOLE SODIUM 40 MG VIAL IVPUSH SCH ×2 (10:41→21:54)
[2022-09-19] MEDS: COLLAGENASE CLOSTRIDIUM HIST. 30 GRAMS TUBE TP SCH (10:43)
[2022-09-19] MEDS: MULTIVIT-MINERALS ORAL LIQUID PO SCH (10:46)
[2022-09-19] MEDS: MUPIROCIN CA 2% TOPICAL CREAM 15 GM TUBE TP SCH (10:47)
[2022-09-19] MEDS: INSULIN (LEVEMIR) 100 UNITS/ML UNITS SQ SCH (12:35)
[2022-09-19] MEDS: NYSTATIN POWDER 100,000 UNITS/GM - 15 GM TOPICAL POWDER TP SCH (13:13)
[2022-09-19] MEDS ORDERED: DEXAMETHASONE SOD PHOSPHATE 10 MG/1 ML VIAL IVPUSH ONE ×2 (14:15→17:19)
[2022-09-19] MEDS ORDERED: LEVALBUTEROL HCL 0.31 MG/3 ML VIAL.NEB IH ONE ×2 (14:40→15:15)
[2022-09-19] MEDS ORDERED: ONDANSETRON 4 MG/2 ML VIAL IVPUSH ONE (16:22)
[2022-09-19] MEDS ORDERED: DEXMEDETOMIDINE PREMIX 400 MCG/100 ML BAG IVPB SCH (16:30)
[2022-09-19] MEDS: PROPOFOL 1,000,000 MCG/100 ML VIAL IVPB SCH (16:58)
[2022-09-19 17:01] LABS: HEMATOCRIT 30.7 % (32.4-45.2); HEMOGLOBIN 9.6 GM/dL (10.7-15.3); MCH 30.7 pg (25.7-33.7); MCHC 31.3 g/dl (32.0-36.0); MEAN CELL VOLUME 97.8 fl (80-96); MEAN PLT VOLUME 10.5 fl (7.5-11.1); RBC 3.14 M/mm3 (3.60-5.2); RDW 22.3 % (11.6-15.6); WHITE BLOOD COUNT 4.9 K/mm3 (4.0-10.0)
[2022-09-19 17:06] LABS: PLATELET COUNT 19 10^3/uL (134-434)
[2022-09-19 17:13] LABS: ALBUMIN 1.7 g/dl (3.4-5.0); BLOOD UREA NITROGEN 33.4 mg/dL (7-18); CALCIUM 8.1 mg/dL (8.5-10.1)
[2022-09-19 17:16] LABS: CREATININE 0.5 mg/dL (0.55-1.3)
[2022-09-19 17:17] LABS: BILIRUBIN,TOTAL 2.1 mg/dL (0.2-1)
[2022-09-19 17:18] LABS: TOT PROT 5.1 g/dl (6.4-8.2)
[2022-09-19 17:22] LABS: URINE APPEARANCE TURBID; URINE BILIRUBIN 3+ (NEGATIVE); URINE COLOR RED; URINE GLUCOSE (UA) NEGATIVE (NEGATIVE); URINE KETONE NEGATIVE (NEGATIVE); URINE LEUK ESTERASE 3+ (NEGATIVE); URINE NITRITE POSITIVE (NEGATIVE); URINE PROTEIN 2+ (NEGATIVE)
[2022-09-19 17:38] LABS: BASO % 0.3 % (0-2.0); EOS % 0.1 % (0-4.5); HEMATOCRIT 27.8 % (32.4-45.2); HEMOGLOBIN 8.7 GM/dL (10.7-15.3); LYMPH % 0.9 % (8-40); MCH 30.4 pg (25.7-33.7); MCHC 31.2 g/dl (32.0-36.0); MEAN CELL VOLUME 97.2 fl (80-96); MEAN PLT VOLUME 9.6 fl (7.5-11.1); MONO % 2.8 % (3.8-10.2); NEUT % 95.9 % (42.8-82.8); RBC 2.86 M/mm3 (3.60-5.2); RDW 21.5 % (11.6-15.6); WHITE BLOOD COUNT 18.7 K/mm3 (4.0-10.0)
[2022-09-19 17:39] LABS: PLATELET COUNT 18 10^3/uL (134-434)
[2022-09-19 18:04] LABS: INR 1.52 (0.83-1.09); PROTHROMBIN TIME (PATIENT) 17.5 SEC (9.7-13.0)
[2022-09-19 18:07] LABS: ACTIVATED PTT 33.9 SECONDS (25.2-36.5)
[2022-09-19] MEDS ORDERED: NOREPINEPHRINE BITARTRATE 4 MG/4 ML ML IV ONE (18:12)
[2022-09-19 18:17] LABS: ANISOCYTOSIS 1+; MACROCYTOSIS 0; ROULEAU 1+; TEAR DROP CELLS 1+
[2022-09-19] MEDS: NOREPINEPHRINE BITARTRATE/D5W 8 MG/250 ML BAG IVPB SCH (18:25)
[2022-09-19] MEDS ORDERED: PHYTONADIONE 10 MG/1 ML AMP IVPB ONE (18:44)
[2022-09-19] MEDS ORDERED: LEVALBUTEROL HCL 0.31 MG/3 ML VIAL.NEB IH SCH (20:00)
[2022-09-19 20:42] LABS: HEMATOCRIT 22.6 % (32.4-45.2); HEMOGLOBIN 7.1 GM/dL (10.7-15.3); MCH 30.5 pg (25.7-33.7); MCHC 31.4 g/dl (32.0-36.0); MEAN CELL VOLUME 96.9 fl (80-96); MEAN PLT VOLUME 9.6 fl (7.5-11.1); RBC 2.33 M/mm3 (3.60-5.2); RDW 22.2 % (11.6-15.6); WHITE BLOOD COUNT 16.6 K/mm3 (4.0-10.0)
[2022-09-19 20:49] LABS: PLATELET COUNT 16 10^3/uL (134-434)
[2022-09-19 21:47] LABS: LACTIC ACID 2.8 mmol/L (0.4-2.0)
[2022-09-19] MEDS: MUPIROCIN 2% TOPICAL OINTMENT FOR DECOLONIZATION NS SCH (21:54)
[2022-09-19] MEDS: CHLORHEXIDINE GLUCONATE 4% CLEANSER FOR DECOLONIZATION TP SCH (21:54)
[2022-09-19 21:55] LABS: ANISOCYTOSIS 1+; MACROCYTOSIS 0; OVALOCYTE 1+; TEAR DROP CELLS 1+
[2022-09-20] MEDS: INSULIN SLIDING SCALE (NOVOLOG) 1 VIAL SQ SCH ×4 (05:18→22:57)
[2022-09-20] MEDS: ARTIFICIAL TEARS (POLYVINYL ALCOHOL) OPTH DROPS OU SCH ×3 (05:19→22:19)
[2022-09-20 08:11] LABS: HEMATOCRIT 20.3 % (32.4-45.2); MCH 31.2 pg (25.7-33.7); MCHC 32.4 g/dl (32.0-36.0); MEAN CELL VOLUME 96.4 fl (80-96); RDW 21.5 % (11.6-15.6); WHITE BLOOD COUNT 8.7 K/mm3 (4.0-10.0)
[2022-09-20 08:15] LABS: INR 1.59 (0.83-1.09); PROTHROMBIN TIME (PATIENT) 18.4 SEC (9.7-13.0)
[2022-09-20 08:18] LABS: ACTIVATED PTT 36.5 SECONDS (25.2-36.5)
[2022-09-20 08:21] LABS: HEMOGLOBIN 6.6 GM/dL (10.7-15.3); PLATELET COUNT 14 10^3/uL (134-434)
[2022-09-20] MEDS: POTASSIUM CHLORIDE 20 MEQ in DEXTROSE 5%-WATER - 1,000 ML IV SCH (08:30)
[2022-09-20 08:34] LABS: ALBUMIN 1.7 g/dl (3.4-5.0); BLOOD UREA NITROGEN 39.5 mg/dL (7-18); CALCIUM 8.1 mg/dL (8.5-10.1); MAGNESIUM 1.7 mg/dL (1.8-2.4)
[2022-09-20 08:37] LABS: PHOSPHOROUS 4.1 mg/dL (2.5-4.9)
[2022-09-20 08:39] LABS: TOT PROT 4.8 g/dl (6.4-8.2)
[2022-09-20 08:41] LABS: CREATININE 0.6 mg/dL (0.55-1.3)
[2022-09-20] MEDS: LACTULOSE 20 GM/30 ML UDC (FOR ORAL USE ONLY) PO SCH ×2 (10:00→22:19)
[2022-09-20] MEDS: MUPIROCIN 2% TOPICAL OINTMENT FOR DECOLONIZATION NS SCH ×2 (10:00→22:19)
[2022-09-20] MEDS: AMINO ACIDS/PROTEIN HYDROLYS 30 ML LIQUID.PKT PO SCH ×2 (10:00→18:15)
[2022-09-20 10:04] LABS: ANISOCYTOSIS 3+; MACROCYTOSIS 0; TEAR DROP CELLS 1+
[2022-09-20] MEDS: MULTIVIT-MINERALS ORAL LIQUID PO SCH (10:05)
[2022-09-20] MEDS: INSULIN (LEVEMIR) 100 UNITS/ML UNITS SQ SCH (10:07)
[2022-09-20] MEDS: MIDODRINE HCL 5 MG TABLET PO SCH ×3 (10:08→18:15)
[2022-09-20] MEDS: PANTOPRAZOLE SODIUM 40 MG VIAL IVPUSH SCH ×2 (10:08→22:19)
[2022-09-20] MEDS ORDERED: methylPREDNISolone NA SUCC 1000 MG/8 ML VIAL IVPB ONE (10:36)
[2022-09-20] MEDS ORDERED: PHYTONADIONE 10 MG/1 ML AMP IVPB ONE (10:47)
[2022-09-20] MEDS ORDERED: ACETAMINOPHEN 1000 MG/100 ML BAG IVPB STA (10:56)
[2022-09-20] MEDS ORDERED: IMMUN GLOB G(IGG)/PRO/IGA 0-50 600 ML, IMMUN GLOB G(IGG)/PRO/IGA 0-50 100 ML IVPB ONE ×2 (11:15→18:00)
[2022-09-20] MEDS: COLLAGENASE CLOSTRIDIUM HIST. 30 GRAMS TUBE TP SCH (11:56)
[2022-09-20] MEDS: NYSTATIN POWDER 100,000 UNITS/GM - 15 GM TOPICAL POWDER TP SCH (11:56)
[2022-09-20] MEDS: PROPOFOL 1,000,000 MCG/100 ML VIAL IVPB SCH (15:00)
[2022-09-20 18:09] LABS: HEMOGLOBIN 9.1 GM/dL (10.7-15.3); LYMPH % 2.1 % (8-40); MCH 31.3 pg (25.7-33.7); MCHC 32.7 g/dl (32.0-36.0); MEAN CELL VOLUME 95.7 fl (80-96); MEAN PLT VOLUME 9.5 fl (7.5-11.1); MONO % 2.5 % (3.8-10.2); NEUT % 95.4 % (42.8-82.8); RBC 2.92 M/mm3 (3.60-5.2); RDW 18.4 % (11.6-15.6); WHITE BLOOD COUNT 8.1 K/mm3 (4.0-10.0)
[2022-09-20 18:17] LABS: HEMATOCRIT 27.9 % (32.4-45.2)
[2022-09-20 18:22] LABS: PLATELET COUNT 19 10^3/uL (134-434)
[2022-09-20 18:50] LABS: ANISOCYTOSIS 3+; MACROCYTOSIS 0; OVALOCYTE 1+; TARGET CELLS 1+; TEAR DROP CELLS 1+
[2022-09-20] MEDS ORDERED: MAGNESIUM 1GM/D5W - 1 GM/100 ML IVPB IVPB ONE (20:47)
[2022-09-20] MEDS: CHLORHEXIDINE GLUCONATE 4% CLEANSER FOR DECOLONIZATION TP SCH (22:19)
[2022-09-20] MEDS: NOREPINEPHRINE BITARTRATE/D5W 8 MG/250 ML BAG IVPB SCH (22:45)
[2022-09-21] MEDS: PROPOFOL 1,000,000 MCG/100 ML VIAL IVPB SCH ×2 (05:16→15:00)
[2022-09-21] MEDS: INSULIN SLIDING SCALE (NOVOLOG) 1 VIAL SQ SCH ×4 (05:26→22:30)
[2022-09-21] MEDS: ARTIFICIAL TEARS (POLYVINYL ALCOHOL) OPTH DROPS OU SCH ×3 (06:48→21:29)
[2022-09-21 07:57] LABS: HEMATOCRIT 22.1 % (32.4-45.2); HEMOGLOBIN 7.4 GM/dL (10.7-15.3); MCH 31.6 pg (25.7-33.7); MCHC 33.2 g/dl (32.0-36.0); MEAN CELL VOLUME 94.9 fl (80-96); MEAN PLT VOLUME 9.3 fl (7.5-11.1); RBC 2.33 M/mm3 (3.60-5.2); RDW 18.6 % (11.6-15.6); WHITE BLOOD COUNT 3.4 K/mm3 (4.0-10.0)
[2022-09-21 08:08] LABS: INR 1.47 (0.83-1.09)
[2022-09-21 08:10] LABS: ACTIVATED PTT 36.4 SECONDS (25.2-36.5)
[2022-09-21 08:12] LABS: PLATELET COUNT 16 10^3/uL (134-434)
[2022-09-21 08:23] LABS: CALCIUM 8.3 mg/dL (8.5-10.1)
[2022-09-21 08:24] LABS: ALBUMIN 1.7 g/dl (3.4-5.0); BLOOD UREA NITROGEN 44.7 mg/dL (7-18); MAGNESIUM 1.9 mg/dL (1.8-2.4)
[2022-09-21 08:27] LABS: CREATININE 0.7 mg/dL (0.55-1.3); PHOSPHOROUS 4.3 mg/dL (2.5-4.9)
[2022-09-21 08:29] LABS: BILIRUBIN,TOTAL 1.4 mg/dL (0.2-1); TOT PROT 6.6 g/dl (6.4-8.2)
[2022-09-21 09:24] LABS: ANISOCYTOSIS 0; MACROCYTOSIS 0; TEAR DROP CELLS 1+
[2022-09-21] MEDS: AMINO ACIDS/PROTEIN HYDROLYS 30 ML LIQUID.PKT PO SCH ×2 (09:40→17:50)
[2022-09-21] MEDS: MUPIROCIN 2% TOPICAL OINTMENT FOR DECOLONIZATION NS SCH ×2 (09:40→21:29)
[2022-09-21] MEDS: PANTOPRAZOLE SODIUM 40 MG VIAL IVPUSH SCH ×2 (09:41→21:29)
[2022-09-21] MEDS: LACTULOSE 20 GM/30 ML UDC (FOR ORAL USE ONLY) PO SCH ×2 (10:58→21:29)
[2022-09-21] MEDS: MULTIVIT-MINERALS ORAL LIQUID PO SCH (10:58)
[2022-09-21] MEDS: COLLAGENASE CLOSTRIDIUM HIST. 30 GRAMS TUBE TP SCH (10:59)
[2022-09-21] MEDS: MIDODRINE HCL 5 MG TABLET PO SCH ×3 (10:59→19:06)
[2022-09-21] MEDS: NYSTATIN POWDER 100,000 UNITS/GM - 15 GM TOPICAL POWDER TP SCH (10:59)
[2022-09-21] MEDS: INSULIN (LEVEMIR) 100 UNITS/ML UNITS SQ SCH (10:59)
[2022-09-21] MEDS: methylPREDNISolone NA SUCC 1000 MG/8 ML VIAL IVPB SCH (11:12)
[2022-09-21] MEDS ORDERED: ACETAMINOPHEN 1000 MG/100 ML BAG IVPB STA (14:19)
[2022-09-21] MEDS: AMINO ACIDS 4.25%/D5W 1,000 ML IV SCH (15:00)
[2022-09-21] MEDS: SODIUM ZIRCONIUM CYCLOSILICATE (LOKELMA) 5 GM PACKET PO SCH (15:30)
[2022-09-21] MEDS ORDERED: IMMUN GLOB G(IGG)/PRO/IGA 0-50 600 ML, IMMUN GLOB G(IGG)/PRO/IGA 0-50 100 ML IVPB ONE (18:00)
[2022-09-21] MEDS: CHLORHEXIDINE GLUCONATE 4% CLEANSER FOR DECOLONIZATION TP SCH (21:29)
[2022-09-22] MEDS: INSULIN SLIDING SCALE (NOVOLOG) 1 VIAL SQ SCH ×4 (05:00→21:55)
[2022-09-22] MEDS: ARTIFICIAL TEARS (POLYVINYL ALCOHOL) OPTH DROPS OU SCH ×3 (06:42→21:54)
[2022-09-22 08:08] LABS: INR 1.64 (0.83-1.09); PROTHROMBIN TIME (PATIENT) 18.9 SEC (9.7-13.0)
[2022-09-22 08:10] LABS: HEMATOCRIT 19.8 % (32.4-45.2); MCHC 33.3 g/dl (32.0-36.0); MEAN PLT VOLUME 9.2 fl (7.5-11.1); RBC 2.06 M/mm3 (3.60-5.2); RDW 18.4 % (11.6-15.6)
[2022-09-22 08:12] LABS: ACTIVATED PTT 39.2 SECONDS (25.2-36.5)
[2022-09-22 08:32] LABS: ALBUMIN 1.6 g/dl (3.4-5.0)
[2022-09-22 08:33] LABS: HEMOGLOBIN 6.6 GM/dL (10.7-15.3); PLATELET COUNT 15 10^3/uL (134-434)
[2022-09-22 08:34] LABS: BILIRUBIN,TOTAL 1.1 mg/dL (0.2-1); TOT PROT 7.2 g/dl (6.4-8.2)
[2022-09-22 08:35] LABS: CREATININE 0.7 mg/dL (0.55-1.3); PHOSPHOROUS 3.5 mg/dL (2.5-4.9); WHITE BLOOD COUNT 1.9 K/mm3 (4.0-10.0)
[2022-09-22 08:36] LABS: CALCIUM 8.3 mg/dL (8.5-10.1)
[2022-09-22 08:37] LABS: BLOOD UREA NITROGEN 52.6 mg/dL (7-18); MAGNESIUM 1.9 mg/dL (1.8-2.4)
[2022-09-22] MEDS: AMINO ACIDS/PROTEIN HYDROLYS 30 ML LIQUID.PKT PO SCH ×3 (08:55→16:46)
[2022-09-22 09:10] LABS: BASO % 0.1 % (0-2.0); HEMATOCRIT 20.4 % (32.4-45.2); LYMPH % 4.3 % (8-40); MCH 31.5 pg (25.7-33.7); MCHC 32.7 g/dl (32.0-36.0); MEAN CELL VOLUME 96.3 fl (80-96); MEAN PLT VOLUME 8.3 fl (7.5-11.1); MONO % 4.8 % (3.8-10.2); NEUT % 90.8 % (42.8-82.8); RBC 2.12 M/mm3 (3.60-5.2); RDW 19.1 % (11.6-15.6); RETICULOCYTES 1.21 % (0.5-1.5); WHITE BLOOD COUNT 2.2 K/mm3 (4.0-10.0)
[2022-09-22 09:23] LABS: HEMOGLOBIN 6.7 GM/dL (10.7-15.3)
[2022-09-22 09:24] LABS: PLATELET COUNT 19 10^3/uL (134-434)
[2022-09-22] MEDS: MUPIROCIN 2% TOPICAL OINTMENT FOR DECOLONIZATION NS SCH ×2 (09:43→21:54)
[2022-09-22 09:44] LABS: ANISOCYTOSIS 0; MACROCYTOSIS 0
[2022-09-22] MEDS: MULTIVIT-MINERALS ORAL LIQUID PO SCH (09:51)
[2022-09-22] MEDS: LACTULOSE 20 GM/30 ML UDC (FOR ORAL USE ONLY) PO SCH ×2 (09:51→21:55)
[2022-09-22] MEDS: SODIUM ZIRCONIUM CYCLOSILICATE (LOKELMA) 5 GM PACKET PO SCH (09:52)
[2022-09-22] MEDS: MIDODRINE HCL 5 MG TABLET PO SCH ×3 (09:52→18:42)
[2022-09-22] MEDS: NYSTATIN POWDER 100,000 UNITS/GM - 15 GM TOPICAL POWDER TP SCH (09:52)
[2022-09-22] MEDS: methylPREDNISolone NA SUCC 1000 MG/8 ML VIAL IVPB SCH (09:53)
[2022-09-22] MEDS: COLLAGENASE CLOSTRIDIUM HIST. 30 GRAMS TUBE TP SCH (09:53)
[2022-09-22] MEDS: PANTOPRAZOLE SODIUM 40 MG VIAL IVPUSH SCH ×2 (10:18→21:55)
[2022-09-22] MEDS: NOREPINEPHRINE BITARTRATE/D5W 8 MG/250 ML BAG IVPB SCH ×2 (11:21→18:53)
[2022-09-22] MEDS: INSULIN (LEVEMIR) 100 UNITS/ML UNITS SQ SCH (11:22)
[2022-09-22] MEDS: AMINO ACIDS 4.25%/D5W 1,000 ML IV SCH ×2 (13:38→13:39)
[2022-09-22 16:45] LABS: HEMATOCRIT 25.4 % (32.4-45.2); HEMOGLOBIN 8.3 GM/dL (10.7-15.3); MCHC 32.8 g/dl (32.0-36.0); MEAN CELL VOLUME 94.4 fl (80-96); MEAN PLT VOLUME 8.2 fl (7.5-11.1); RBC 2.69 M/mm3 (3.60-5.2); RDW 18.1 % (11.6-15.6); WHITE BLOOD COUNT 3.1 K/mm3 (4.0-10.0)
[2022-09-22] MEDS: PROPOFOL 1,000,000 MCG/100 ML VIAL IVPB SCH ×2 (16:45→20:49)
[2022-09-22 16:49] LABS: PLATELET COUNT 18 10^3/uL (134-434)
[2022-09-22] MEDS ORDERED: LACTULOSE 20 GM/30 ML UDC (FOR ORAL USE ONLY) PO SCH (20:47)
[2022-09-22] MEDS ORDERED: BISACODYL 5 MG TABLET.DR (FP) PO PRN (20:47)
[2022-09-22] MEDS ORDERED: COD LIVER OIL/ZINC OXIDE PASTE 56 GM TUBE TP PRN (20:47)
[2022-09-22] MEDS ORDERED: ACETAMINOPHEN 650 MG/20.3 ML ORAL SOLUTION (CUPS) PO PRN (20:47)
[2022-09-22] MEDS: CHLORHEXIDINE GLUCONATE 4% CLEANSER FOR DECOLONIZATION TP SCH (21:55)
[2022-09-23] MEDS: PROPOFOL 1,000,000 MCG/100 ML VIAL IVPB SCH (02:37)
[2022-09-23] MEDS: INSULIN SLIDING SCALE (NOVOLOG) 1 VIAL SQ SCH ×4 (06:28→22:19)
[2022-09-23] MEDS: ARTIFICIAL TEARS (POLYVINYL ALCOHOL) OPTH DROPS OU SCH ×3 (06:29→22:17)
[2022-09-23] MEDS: INSULIN (LEVEMIR) 100 UNITS/ML UNITS SQ SCH (06:29)
[2022-09-23 07:23] LABS: ACTIVATED PTT 36.5 SECONDS (25.2-36.5)
[2022-09-23 07:36] LABS: HEMATOCRIT 25.6 % (32.4-45.2); HEMOGLOBIN 8.6 GM/dL (10.7-15.3); MCH 31.4 pg (25.7-33.7); MCHC 33.7 g/dl (32.0-36.0); MEAN CELL VOLUME 93.3 fl (80-96); MEAN PLT VOLUME 8.6 fl (7.5-11.1); RBC 2.74 M/mm3 (3.60-5.2); RDW 18.3 % (11.6-15.6); WHITE BLOOD COUNT 2.6 K/mm3 (4.0-10.0)
[2022-09-23 07:38] LABS: ALBUMIN 1.6 g/dl (3.4-5.0); BLOOD UREA NITROGEN 56.6 mg/dL (7-18); CALCIUM 8.3 mg/dL (8.5-10.1); MAGNESIUM 1.7 mg/dL (1.8-2.4)
[2022-09-23 07:41] LABS: CREATININE 0.7 mg/dL (0.55-1.3)
[2022-09-23 07:43] LABS: BILIRUBIN,TOTAL 1.6 mg/dL (0.2-1); TOT PROT 6.7 g/dl (6.4-8.2)
[2022-09-23 07:50] LABS: PLATELET COUNT 16 10^3/uL (134-434)
[2022-09-23] MEDS: AMINO ACIDS/PROTEIN HYDROLYS 30 ML LIQUID.PKT PO SCH ×3 (08:00→17:23)
[2022-09-23 08:33] LABS: INR 1.74 (0.83-1.09); PROTHROMBIN TIME (PATIENT) 20.1 SEC (9.7-13.0)
[2022-09-23] MEDS ORDERED: LACTATED RINGERS SOLUTION 1,000 ML/1,000 ML INFUS.BAG IV SCH (08:45)
[2022-09-23] MEDS ORDERED: MAGNESIUM 2GM/50ML STERILE WATER IVPB IVPB ONE ×2 (09:00→10:30)
[2022-09-23 09:06] LABS: ANISOCYTOSIS 0; HELMET CELLS 0; HOWELL-JOLLY BODIES 0; MACROCYTOSIS 0; OVALOCYTE 0; ROULEAU 0; SICKELED CELLS 0; TARGET CELLS 0; TEAR DROP CELLS 0; TOXIC GRANULATION 0
[2022-09-23] MEDS: MIDODRINE HCL 5 MG TABLET PO SCH ×4 (10:00→17:24)
[2022-09-23] MEDS ORDERED: MULTIVIT-MINERALS ORAL LIQUID PO SCH (10:00)
[2022-09-23] MEDS: LACTULOSE 20 GM/30 ML UDC (FOR ORAL USE ONLY) PO SCH ×3 (10:22→22:18)
[2022-09-23] MEDS: MUPIROCIN 2% TOPICAL OINTMENT FOR DECOLONIZATION NS SCH ×2 (10:29→22:17)
[2022-09-23] MEDS: SODIUM ZIRCONIUM CYCLOSILICATE (LOKELMA) 5 GM PACKET PO SCH (10:29)
[2022-09-23] MEDS: LACTATED RINGERS SOLUTION 1,000 ML/1,000 ML INFUS.BAG IV SCH (10:29)
[2022-09-23] MEDS: NYSTATIN POWDER 100,000 UNITS/GM - 15 GM TOPICAL POWDER TP SCH (10:29)
[2022-09-23] MEDS: COLLAGENASE CLOSTRIDIUM HIST. 30 GRAMS TUBE TP SCH (10:30)
[2022-09-23] MEDS: PANTOPRAZOLE SODIUM 40 MG VIAL IVPUSH SCH ×2 (10:30→22:18)
[2022-09-23] MEDS: DEXTROSE 5% IVPB SCH (14:00)
[2022-09-23] MEDS: WATER IVPB SCH (14:00)
[2022-09-23] MEDS: VORICONAZOLE IVPB SCH (14:00)
[2022-09-23] MEDS: MULTIVIT INJ. ADULT COMBO WITH VIT K 1 COMBO 10 ML VIAL IV SCH (18:57)
[2022-09-23] MEDS: AMINO ACIDS 4.25%/D5W 1,000 ML IV SCH (18:57)
[2022-09-23] MEDS: NOREPINEPHRINE BITARTRATE/D5W 8 MG/250 ML BAG IVPB SCH (19:10)
[2022-09-23] MEDS: DEXMEDETOMIDINE PREMIX 400 MCG/100 ML BAG IVPB SCH (19:21)
[2022-09-23 20:50] LABS: EPI CELLS 20 /uL (0-25.1); HYALINE CASTS 1 /uL (0-3.1); PH,URINE 5.5 (5.0-8.0); URINE APPEARANCE CLEAR; URINE BACTERIA 40 /uL (0-1359); URINE BILIRUBIN NEGATIVE (NEGATIVE); URINE COLOR YELLOW; URINE GLUCOSE (UA) NEGATIVE (NEGATIVE); URINE KETONE NEGATIVE (NEGATIVE); URINE LEUK ESTERASE TRACE (NEGATIVE); URINE NITRITE NEGATIVE (NEGATIVE); URINE PROTEIN TRACE (NEGATIVE); URINE UROBILINOGEN 0.2 mg/dL (0.2-1.0); URINE WBC 313 /uL (0-25.8)
[2022-09-23 21:29] LABS: URINE RBC 138.9 /uL (0-23.9)
[2022-09-23] MEDS ORDERED: SMOFLIPID - FAT EMUL/SOY/MCT/OLIV/FISH OIL 250 ML EMULSION IV SCH (22:00)
[2022-09-23] MEDS: CHLORHEXIDINE GLUCONATE 4% CLEANSER FOR DECOLONIZATION TP SCH (22:18)
[2022-09-23] MEDS: FAT EMUL/SOY/MCT/OLIV/FISH OIL 250 ML IV SCH (22:19)
[2022-09-24] MEDS: DEXTROSE 5% IVPB SCH ×2 (01:36→14:34)
[2022-09-24] MEDS: VORICONAZOLE IVPB SCH ×2 (01:36→14:34)
[2022-09-24] MEDS: WATER IVPB SCH ×2 (01:36→14:34)
[2022-09-24] MEDS: INSULIN SLIDING SCALE (NOVOLOG) 1 VIAL SQ SCH ×4 (05:49→22:03)
[2022-09-24] MEDS: INSULIN (LEVEMIR) 100 UNITS/ML UNITS SQ SCH (06:04)
[2022-09-24] MEDS: ARTIFICIAL TEARS (POLYVINYL ALCOHOL) OPTH DROPS OU SCH ×3 (06:04→21:36)
[2022-09-24 07:17] LABS: HEMATOCRIT 25.7 % (32.4-45.2); HEMOGLOBIN 8.7 GM/dL (10.7-15.3); MCHC 33.7 g/dl (32.0-36.0); MEAN CELL VOLUME 94.7 fl (80-96); MEAN PLT VOLUME 9.1 fl (7.5-11.1); RBC 2.71 M/mm3 (3.60-5.2); RDW 18.9 % (11.6-15.6); WHITE BLOOD COUNT 2.4 K/mm3 (4.0-10.0)
[2022-09-24 07:34] LABS: PLATELET COUNT 12 10^3/uL (134-434)
[2022-09-24 07:44] LABS: CALCIUM 8.3 mg/dL (8.5-10.1)
[2022-09-24 07:45] LABS: ALBUMIN 1.6 g/dl (3.4-5.0); BLOOD UREA NITROGEN 57.4 mg/dL (7-18)
[2022-09-24 07:48] LABS: CREATININE 0.6 mg/dL (0.55-1.3)
[2022-09-24 07:50] LABS: BILIRUBIN,TOTAL 2.2 mg/dL (0.2-1)
[2022-09-24 09:23] LABS: ANISOCYTOSIS 0; HELMET CELLS 0; HOWELL-JOLLY BODIES 0; MACROCYTOSIS 0; OVALOCYTE 0; ROULEAU 0; SICKELED CELLS 0; TARGET CELLS 0; TEAR DROP CELLS 0; TOXIC GRANULATION 0
[2022-09-24] MEDS: COLLAGENASE CLOSTRIDIUM HIST. 30 GRAMS TUBE TP SCH (09:30)
[2022-09-24] MEDS: LACTULOSE 20 GM/30 ML UDC (FOR ORAL USE ONLY) PO SCH ×2 (09:59→21:33)
[2022-09-24] MEDS: MIDODRINE HCL 5 MG TABLET PO SCH ×3 (09:59→19:09)
[2022-09-24] MEDS: AMINO ACIDS/PROTEIN HYDROLYS 30 ML LIQUID.PKT PO SCH ×2 (09:59→17:42)
[2022-09-24] MEDS: LACTATED RINGERS SOLUTION 1,000 ML/1,000 ML INFUS.BAG IV SCH ×2 (10:37→16:00)
[2022-09-24] MEDS: PANTOPRAZOLE SODIUM 40 MG VIAL IVPUSH SCH ×2 (10:38→21:33)
[2022-09-24] MEDS: NYSTATIN POWDER 100,000 UNITS/GM - 15 GM TOPICAL POWDER TP SCH (10:38)
[2022-09-24] MEDS: MUPIROCIN 2% TOPICAL OINTMENT FOR DECOLONIZATION NS SCH (10:38)
[2022-09-24] MEDS: DEXMEDETOMIDINE PREMIX 400 MCG/100 ML BAG IVPB SCH ×2 (11:18→21:32)
[2022-09-24 13:27] LABS: MAGNESIUM 1.9 mg/dL (1.8-2.4)
[2022-09-24 13:32] LABS: PHOSPHOROUS 2.1 mg/dL (2.5-4.9)
[2022-09-24] MEDS ORDERED: SODIUM PHOSPHATE - 30 MM in SODIUM CHLORIDE 250 ML IVPB ONE (14:15)
[2022-09-24] MEDS ORDERED: LACTATED RINGERS SOLUTION 1,000 ML/1,000 ML INFUS.BAG IV SCH (14:19)
[2022-09-24 14:39] LABS: INR 1.48 (0.83-1.09); PROTHROMBIN TIME (PATIENT) 17.1 SEC (9.7-13.0)
[2022-09-24 14:42] LABS: ACTIVATED PTT 33.6 SECONDS (25.2-36.5)
[2022-09-24] MEDS: AMINO ACIDS 4.25%/D5W 1,000 ML IV SCH (19:06)
[2022-09-24] MEDS: MULTIVIT INJ. ADULT COMBO WITH VIT K 1 COMBO 10 ML VIAL IV SCH (20:30)
[2022-09-24] MEDS: RIFAXIMIN 550 MG TABLET PO SCH (21:33)
[2022-09-24] MEDS: CHLORHEXIDINE GLUCONATE 4% CLEANSER FOR DECOLONIZATION TP SCH (21:33)
[2022-09-24] MEDS: NOREPINEPHRINE BITARTRATE/D5W 8 MG/250 ML BAG IVPB SCH (21:33)
[2022-09-24] MEDS: FAT EMUL/SOY/MCT/OLIV/FISH OIL 250 ML IV SCH (21:38)
[2022-09-25] MEDS: WATER IVPB SCH ×2 (00:26→14:35)
[2022-09-25] MEDS: DEXTROSE 5% IVPB SCH ×2 (00:26→14:35)
[2022-09-25] MEDS: VORICONAZOLE IVPB SCH ×2 (00:26→14:35)
[2022-09-25] MEDS: LACTATED RINGERS SOLUTION 1,000 ML/1,000 ML INFUS.BAG IV SCH (01:00)
[2022-09-25] MEDS: DEXMEDETOMIDINE PREMIX 400 MCG/100 ML BAG IVPB SCH (02:00)
[2022-09-25] MEDS: ARTIFICIAL TEARS (POLYVINYL ALCOHOL) OPTH DROPS OU SCH ×3 (06:10→21:44)
[2022-09-25] MEDS: INSULIN (LEVEMIR) 100 UNITS/ML UNITS SQ SCH (06:13)
[2022-09-25] MEDS: INSULIN SLIDING SCALE (NOVOLOG) 1 VIAL SQ SCH ×3 (06:13→21:44)
[2022-09-25 06:37] LABS: HEMATOCRIT 29.6 % (32.4-45.2); HEMOGLOBIN 10.1 GM/dL (10.7-15.3); MCH 32.3 pg (25.7-33.7); MCHC 34.2 g/dl (32.0-36.0); MEAN CELL VOLUME 94.6 fl (80-96); MEAN PLT VOLUME 9.5 fl (7.5-11.1); RBC 3.13 M/mm3 (3.60-5.2); RDW 18.7 % (11.6-15.6); WHITE BLOOD COUNT 8.6 K/mm3 (4.0-10.0)
[2022-09-25 06:47] LABS: INR 1.35 (0.83-1.09); PROTHROMBIN TIME (PATIENT) 15.6 SEC (9.7-13.0)
[2022-09-25 06:49] LABS: ACTIVATED PTT 31.3 SECONDS (25.2-36.5)
[2022-09-25 06:58] LABS: ALBUMIN 1.6 g/dl (3.4-5.0); CALCIUM 8.1 mg/dL (8.5-10.1); MAGNESIUM 1.7 mg/dL (1.8-2.4)
[2022-09-25 07:01] LABS: CREATININE 0.5 mg/dL (0.55-1.3); PHOSPHOROUS 3.4 mg/dL (2.5-4.9)
[2022-09-25 07:03] LABS: BILIRUBIN,TOTAL 2.2 mg/dL (0.2-1); TOT PROT 5.8 g/dl (6.4-8.2)
[2022-09-25] MEDS ORDERED: MAGNESIUM SULF 50% (8.12 MEQ/2 ML-1 GM VIAL) IVPB ONE (07:11)
[2022-09-25] MEDS ORDERED: LACTATED RINGERS SOLUTION 1,000 ML/1,000 ML INFUS.BAG IV SCH (07:19)
[2022-09-25 07:21] LABS: PLATELET COUNT 19 10^3/uL (134-434)
[2022-09-25 08:46] LABS: BILIRUBIN,DIRECT 1.5 mg/dL (0.0-0.2)
[2022-09-25 09:02] LABS: ANISOCYTOSIS 1+; MACROCYTOSIS 1+
[2022-09-25] MEDS: LACTULOSE 20 GM/30 ML UDC (FOR ORAL USE ONLY) PO SCH ×2 (09:10→21:40)
[2022-09-25] MEDS: AMINO ACIDS/PROTEIN HYDROLYS 30 ML LIQUID.PKT PO SCH ×2 (09:10→18:23)
[2022-09-25] MEDS: RIFAXIMIN 550 MG TABLET PO SCH ×2 (09:11→21:43)
[2022-09-25] MEDS: MIDODRINE HCL 5 MG TABLET PO SCH ×3 (09:11→18:23)
[2022-09-25] MEDS: NYSTATIN POWDER 100,000 UNITS/GM - 15 GM TOPICAL POWDER TP SCH (09:11)
[2022-09-25] MEDS: COLLAGENASE CLOSTRIDIUM HIST. 30 GRAMS TUBE TP SCH (09:11)
[2022-09-25] MEDS: PANTOPRAZOLE SODIUM 40 MG VIAL IVPUSH SCH ×2 (09:52→21:46)
[2022-09-25] MEDS: AMINO ACIDS 4.25%/D5W 1,000 ML IV SCH (15:56)
[2022-09-25] MEDS: MULTIVIT INJ. ADULT COMBO WITH VIT K 1 COMBO 10 ML VIAL IV SCH (15:56)
[2022-09-25] MEDS: NOREPINEPHRINE BITARTRATE/D5W 8 MG/250 ML BAG IVPB SCH (18:24)
[2022-09-25] MEDS: CHLORHEXIDINE GLUCONATE 4% CLEANSER FOR DECOLONIZATION TP SCH (21:40)
[2022-09-26] MEDS: VORICONAZOLE IVPB SCH ×2 (00:15→14:25)
[2022-09-26] MEDS: WATER IVPB SCH ×2 (00:15→14:25)
[2022-09-26] MEDS: DEXTROSE 5% IVPB SCH ×2 (00:15→14:25)
[2022-09-26] MEDS: INSULIN SLIDING SCALE (NOVOLOG) 1 VIAL SQ SCH ×6 (06:40→22:50)
[2022-09-26] MEDS: ARTIFICIAL TEARS (POLYVINYL ALCOHOL) OPTH DROPS OU SCH ×3 (06:40→21:45)
[2022-09-26] MEDS: INSULIN (LEVEMIR) 100 UNITS/ML UNITS SQ SCH (06:40)
[2022-09-26 07:52] LABS: HEMATOCRIT 28.7 % (32.4-45.2); HEMOGLOBIN 9.4 GM/dL (10.7-15.3); MCH 31.2 pg (25.7-33.7); MCHC 32.9 g/dl (32.0-36.0); MEAN CELL VOLUME 94.7 fl (80-96); MEAN PLT VOLUME 10.2 fl (7.5-11.1); RBC 3.03 M/mm3 (3.60-5.2); RDW 19.2 % (11.6-15.6); WHITE BLOOD COUNT 10.6 K/mm3 (4.0-10.0)
[2022-09-26 07:54] LABS: INR 1.39 (0.83-1.09)
[2022-09-26 07:57] LABS: ACTIVATED PTT 31.4 SECONDS (25.2-36.5)
[2022-09-26 08:01] LABS: PLATELET COUNT 15 10^3/uL (134-434)
[2022-09-26 08:28] LABS: CALCIUM 8.3 mg/dL (8.5-10.1)
[2022-09-26 08:29] LABS: ALBUMIN 1.6 g/dl (3.4-5.0); BLOOD UREA NITROGEN 59.1 mg/dL (7-18); MAGNESIUM 2.1 mg/dL (1.8-2.4)
[2022-09-26 08:32] LABS: CREATININE 0.6 mg/dL (0.55-1.3); PHOSPHOROUS 3.3 mg/dL (2.5-4.9)
[2022-09-26 08:33] LABS: BILIRUBIN,TOTAL 2.7 mg/dL (0.2-1); TOT PROT 5.3 g/dl (6.4-8.2)
[2022-09-26] MEDS: AMINO ACIDS/PROTEIN HYDROLYS 30 ML LIQUID.PKT PO SCH ×2 (09:00→17:12)
[2022-09-26 09:28] LABS: ANISOCYTOSIS 1+; MACROCYTOSIS 1+
[2022-09-26] MEDS: LACTULOSE 20 GM/30 ML UDC (FOR ORAL USE ONLY) PO SCH ×2 (10:18→21:46)
[2022-09-26] MEDS: PANTOPRAZOLE SODIUM 40 MG VIAL IVPUSH SCH ×2 (10:19→21:46)
[2022-09-26] MEDS: CYANOCOBALAMIN 1,000 MCG TABLET (FP) PO SCH (10:19)
[2022-09-26] MEDS: MIDODRINE HCL 5 MG TABLET PO SCH ×3 (10:19→17:09)
[2022-09-26] MEDS: RIFAXIMIN 550 MG TABLET PO SCH ×2 (10:20→21:48)
[2022-09-26] MEDS: COLLAGENASE CLOSTRIDIUM HIST. 30 GRAMS TUBE TP SCH (10:51)
[2022-09-26] MEDS: NYSTATIN POWDER 100,000 UNITS/GM - 15 GM TOPICAL POWDER TP SCH (10:51)
[2022-09-26] MEDS: NOREPINEPHRINE BITARTRATE/D5W 8 MG/250 ML BAG IVPB SCH (21:45)
[2022-09-26] MEDS: CHLORHEXIDINE GLUCONATE 4% CLEANSER FOR DECOLONIZATION TP SCH (21:46)
[2022-09-26] MEDS ORDERED: VASOPRESSIN 20 UNITS/ML VIAL IV ONE (22:21)
[2022-09-26] MEDS ORDERED: LACTATED RINGERS SOLUTION 1,000 ML/1,000 ML INFUS.BAG IV STA (22:58)
[2022-09-27] MEDS: NOREPINEPHRINE BITARTRATE/D5W 8 MG/250 ML BAG IVPB SCH (00:54)
[2022-09-27] MEDS: WATER IVPB SCH (01:17)
[2022-09-27] MEDS: DEXTROSE 5% IVPB SCH (01:17)
[2022-09-27] MEDS: VORICONAZOLE IVPB SCH (01:17)
[2022-09-27] MEDS ORDERED: VASOPRESSIN 40 UNITS/100 ML BAG IV SCH (05:15)
[2022-09-27] MEDS: ARTIFICIAL TEARS (POLYVINYL ALCOHOL) OPTH DROPS OU SCH (06:52)
[2022-09-27] MEDS: INSULIN SLIDING SCALE (NOVOLOG) 1 VIAL SQ SCH (06:52)
[2022-09-27] MEDS: INSULIN (LEVEMIR) 100 UNITS/ML UNITS SQ SCH (06:52)
[2022-09-27 07:54] LABS: HEMATOCRIT 29.3 % (32.4-45.2); HEMOGLOBIN 8.8 GM/dL (10.7-15.3); MEAN CELL VOLUME 103.5 fl (80-96); MEAN PLT VOLUME 11.6 fl (7.5-11.1); RBC 2.84 M/mm3 (3.60-5.2); RDW 22.4 % (11.6-15.6)
[2022-09-27 07:55] LABS: CHLORIDE 110 mmol/L (98-107); SODIUM 141 mmol/L (136-145)
[2022-09-27 07:57] LABS: CALCIUM 9.1 mg/dL (8.5-10.1)
[2022-09-27 07:58] LABS: BLOOD UREA NITROGEN 63.8 mg/dL (7-18); CO2 19 mmol/L (21-32); GLUCOSE,RANDOM 128 mg/dL (74-106); MAGNESIUM 2.9 mg/dL (1.8-2.4)
[2022-09-27 08:02] LABS: BILIRUBIN,TOTAL 3.1 mg/dL (0.2-1)
[2022-09-27 08:03] LABS: TOT PROT 4.2 g/dl (6.4-8.2)
[2022-09-27 08:04] LABS: ACTIVATED PTT > 400.0 SECONDS (25.2-36.5); INR 4.11 (0.83-1.09)
[2022-09-27 08:28] VITALS: BP 46/26; PULSE 100; RESP 16; TEMP 96.7
[2022-09-27 08:31] LABS: ALBUMIN 1.2 g/dl (3.4-5.0); ALK PHOS 273 U/L (45-117); PHOSPHOROUS 8.2 mg/dL (2.5-4.9); SGOT/AST 5492 U/L (15-37); SGPT/ALT 1248 U/L (13-61)
[2022-09-27] MEDS: AMINO ACIDS/PROTEIN HYDROLYS 30 ML LIQUID.PKT PO SCH (08:33)
[2022-09-27] MEDS: RIFAXIMIN 550 MG TABLET PO SCH (09:32)
[2022-09-27] MEDS: CYANOCOBALAMIN 1,000 MCG TABLET (FP) PO SCH (09:32)
[2022-09-27] MEDS: MIDODRINE HCL 5 MG TABLET PO SCH (09:33)
[2022-09-27] MEDS: LACTULOSE 20 GM/30 ML UDC (FOR ORAL USE ONLY) PO SCH (09:33)
[2022-09-27] MEDS: PANTOPRAZOLE SODIUM 40 MG VIAL IVPUSH SCH (09:33)
[2022-09-27] MEDS: COLLAGENASE CLOSTRIDIUM HIST. 30 GRAMS TUBE TP SCH (09:35)
[2022-09-27] MEDS: NYSTATIN POWDER 100,000 UNITS/GM - 15 GM TOPICAL POWDER TP SCH (09:39)
[2022-09-27 09:40] LABS: ANISOCYTOSIS 2+; MACROCYTOSIS 2+; OVALOCYTE 1+; TEAR DROP CELLS 1+
[2022-09-27 09:43] LABS: PLATELET COUNT 12 10^3/uL (134-434)
[2022-09-27 09:47] LABS: ANION GAP 12 MMOL/L (8-16)
== END 2022-09-27 10:20 | disposition expired | DRG 5 ==
LOC: JER 08:34 → JERBED 12:51 → JICU 17:53 → J2W 09-04 22:13 → JICU 09-13 06:20
PROVIDERS: ADMIT Internal Medicine Pulmonary Disease; ATTEND Internal Medicine Pulmonary Disease
PROC: 05HM33Z Insertion of Infusion Device into Right Internal Jugular Vein, Percutaneous Approach (ICD-10-PCS; principal; 2022-08-12)
PROC: 0BH17EZ Insertion of Endotracheal Airway into Trachea, Via Natural or Artificial Opening (ICD-10-PCS; 2022-08-12)
PROC: 5A1955Z Respiratory Ventilation, Greater than 96 Consecutive Hours (ICD-10-PCS; 2022-08-12)
PROC: 03H533Z Insertion of Infusion Device into Right Axillary Artery, Percutaneous Approach (ICD-10-PCS; 2022-08-12)
PROC: 0T9B30Z Drainage of Bladder with Drainage Device, Percutaneous Approach (ICD-10-PCS; 2022-08-15)
PROC: 30233R1 Transfusion of Nonautologous Platelets into Peripheral Vein, Percutaneous Approach (ICD-10-PCS; 2022-08-21)
PROC: 05HN33Z Insertion of Infusion Device into Left Internal Jugular Vein, Percutaneous Approach (ICD-10-PCS; 2022-08-21)
PROC: B544ZZA Ultrasonography of Left Jugular Veins, Guidance (ICD-10-PCS; 2022-08-21)
PROC: 0BJ08ZZ Inspection of Tracheobronchial Tree, Via Natural or Artificial Opening Endoscopic (ICD-10-PCS; 2022-08-27)
PROC: 0B113F4 Bypass Trachea to Cutaneous with Tracheostomy Device, Percutaneous Approach (ICD-10-PCS; 2022-08-27)
PROC: 30233N1 Transfusion of Nonautologous Red Blood Cells into Peripheral Vein, Percutaneous Approach (ICD-10-PCS; 2022-08-27)
PROC: 05HM33Z Insertion of Infusion Device into Right Internal Jugular Vein, Percutaneous Approach (ICD-10-PCS; 2022-09-12)
PROC: B543ZZA Ultrasonography of Right Jugular Veins, Guidance (ICD-10-PCS; 2022-09-12)
PROC: 0JBJ0ZZ Excision of Right Hand Subcutaneous Tissue and Fascia, Open Approach (ICD-10-PCS; 2022-09-17)
DX: A41.89 Other specified sepsis (principal); F11.20 Opioid dependence, uncomplicated; C52 Malignant neoplasm of vagina; D72.829 Elevated white blood cell count, unspecified; J96.01 Acute respiratory failure with hypoxia; J44.1 Chronic obstructive pulmonary disease with (acute) exacerbation; E87.20 Acidosis, unspecified; R94.5 Abnormal results of liver function studies; N17.9 Acute kidney failure, unspecified; B19.20 Unspecified viral hepatitis C without hepatic coma; K59.00 Constipation, unspecified; F41.8 Other specified anxiety disorders; K76.6 Portal hypertension; K74.60 Unspecified cirrhosis of liver; I25.119 Atherosclerotic heart disease of native coronary artery with unspecified angina pectoris; K72.00 Acute and subacute hepatic failure without coma; D69.6 Thrombocytopenia, unspecified; F17.200 Nicotine dependence, unspecified, uncomplicated; R65.21 Severe sepsis with septic shock; D68.9 Coagulation defect, unspecified; D64.9 Anemia, unspecified; G93.41 Metabolic encephalopathy; J90 Pleural effusion, not elsewhere classified; E87.0 Hyperosmolality and hypernatremia; R16.1 Splenomegaly, not elsewhere classified; I35.0 Nonrheumatic aortic (valve) stenosis; R00.1 Bradycardia, unspecified; E87.5 Hyperkalemia; J96.02 Acute respiratory failure with hypercapnia; R50.9 Fever, unspecified; I82.602 Acute embolism and thrombosis of unspecified veins of left upper extremity; F19.10 Other psychoactive substance abuse, uncomplicated; R33.8 Other retention of urine; J18.9 Pneumonia, unspecified organism; D61.818 Other pancytopenia; E43 Unspecified severe protein-calorie malnutrition; Z68.26 Body mass index [BMI] 26.0-26.9, adult; L08.9 Local infection of the skin and subcutaneous tissue, unspecified; N39.0 Urinary tract infection, site not specified
CPT/HCPCS: 0241U-QW; 36415; 36430; 36511; 36600; 47534; 51102; 71045-TC-FY; 71250-TC; 74176-TC; 74230-TC-FY; 76705-TC; 76856-TC; 80048; 80053; 80076; 80307; 81003; 82105; 82140; 82248; 82272; 82550; 82553; 82570; 82607; 82728; 82746; 82747; 82803; 82962; 82977; 83540; 83550; 83605; 83690; 83735; 83880; 84100; 84300; 84484; 85014; 85025; 85027; 85045; 85379; 85384; 85610; 85730; 86078; 86705; 86708; 86850; 86900; 86901; 86922; 87040; 87070; 87077; 87086; 87102; 87106; 87107; 87116; 87186; 87205; 87210; 87324; 87340; 87350; 87449; 87517; 87522; 87902; 92611-GN; 93005; 93010; 93306-TC; 93971; 94002; 94640; 99285-25; J1100; J1459; J1644; J2597; J3490; P9012; P9017; P9034; P9037; P9038; P9047; P9058